=== PATIENT | male | born 1940 | race Caucasian/White ===

== ENCOUNTER → 2019-08-13 | Outpatient (CLI) | payer MEDICARE ==
[2019-08-13 15:32] LABS: BACTERIA,URINE NEGATIVE /HPF; BILIRUBIN,URINE NEGATIVE (NEGATIVE); CLARITY,URINE CLOUDY; COLOR,URINE YELLOW; GLUCOSE, URINE (UA) NEGATIVE (NEGATIVE); KETONES,URINE NEGATIVE (NEGATIVE); LEUKOCYTE ESTERASE ,URINE 3+ (NEGATIVE); NITRITE,URINE NEGATIVE (NEGATIVE); PROTEIN,URINE 1+ (NEGATIVE); RBC,URINE RARE /HPF; WBC,URINE TNTC /HPF
== END ==
LOC: LAB FS 14:47
PROVIDERS: ATTEND Family Medicine
DX: R10.9 Unspecified abdominal pain (principal)
CPT/HCPCS: 81000; 87077; 87088

== ENCOUNTER 2020-08-05 13:45 | Emergency (ER) | payer MEDICARE ==
[~2020-08-05] VITALS: Ht 187 cm; Wt 82.2 kg
--- NOTE | 2020-08-05 14:25 | ED General ---
General Chief Complaint: - Urinary Stated Complaint: CATHETER ISSUE Nursing Triage Note: Has been self catheterizing for 8 months due to urinary retention. Has seen urology at [facility] but was told they couldn't do anything until the coronavirus down. Has intermittent bleeding when he catheterizes himself. Cathed himself this morning and states it has not stopped bleeding. Nursing Sepsis Screen: No Definite Risk History of Present Illness Date Seen by Provider: Aug 05, 2020 Time Seen by Provider: 14:22 Initial Comments Patient presenting to the emergency department for evaluation of hematuria in the setting of self-catheterization for the past 8 months. Patient says that he follows with a urologist at [facility] but has not seen them in a long time. He says when he catheterizes his urine is clear but after he is done catheterizing he notices gross hematuria. He denies any pain fevers chills nausea vomiting or other systemic symptoms. He is in no obvious distress with normal vital signs. Of note he denies taking any blood thinners at all. Allergies and Home Medications Allergies Coded Allergies: No Known Drug Allergies (Unverified , 08/05/20) Patient Home Medication List Home Medication List Reviewed: Yes Review of Systems Review of Systems Constitutional: no symptoms reported EENTM: no symptoms reported Respiratory: no symptoms reported Cardiovascular: no symptoms reported Gastrointestinal: no symptoms reported Genitourinary: hematuria Musculoskeletal: no symptoms reported Psychiatric/Neurological: No Symptoms Reported All Other Systems Reviewed Negative Unless Noted: Yes Past Frwniys-Atzogs-Qfzslw Hx Patient Social History Alcohol Use: Denies Use Recreational Drug Use: No Smoking Status: Never a Smoker 2nd Hand Smoke Exposure: No Recent Foreign Travel: No Contact w/Someone Who Travel: No Recent Infectious Disease Expo: No Recent Hopitalizations: No Physical Abuse: No Sexual Abuse: No Mistreated: No Fear: No Seasonal Allergies Seasonal Allergies: No Past Medical History Surgeries: Yes Tonsillectomy Respiratory: No Cardiac: No Neurological: No Genitourinary: Yes Prostate Problems Gastrointestinal: No Musculoskeletal: No Endocrine: No HEENT: No Cancer: No Psychosocial: No Integumentary: No Blood Disorders: No Adverse Reaction/Blood Tranf: No Physical Exam Vital Signs Vital Signs - First Documented 08/05/20 13:53 Temp 36.0 Pulse 110 Resp 16 B/P (MAP) 171/91 (117) Pulse Ox 100 Capillary Refill : Less Than 3 Seconds Height, Weight, BMI Height: '" Weight: lbs. oz. kg; 23.00 BMI Method: General Appearance: No Apparent Distress, WD/WN HEENT: PERRL/EOMI Neck: Supple Respiratory: No Respiratory Distress Cardiovascular: Regular Rate, Rhythm Back: No CVA Tenderness Extremity: Normal Capillary Refill Neurologic/Psychiatric: Alert, Oriented x3 Skin: Warm/Dry Progress/Results/Core Measures Suspected Sepsis Recent Fever Within 48 Hours: No Infection Criteria Present: None New/Unexplained Altered Menta: No Sepsis Screen: No Definite Risk SIRS Temperature: Pulse: 110 Respiratory Rate: 16 Laboratory Tests 08/05/20 14:05: White Blood Count 15.1H Blood Pressure 171 /91 Mean: 117 Laboratory Tests 08/05/20 14:05: Creatinine 3.54H, INR Comment 1.0, Platelet Count 425H, Total Bilirubin 0.3 Results/Orders Lab Results Laboratory Tests Test 08/05/20 14:05 08/05/20 14:10 Range/Units White Blood Count 15.1 H 4.3-11.0 10^3/uL Red Blood Count 5.29 4.35-5.85 10^6/uL Hemoglobin 13.3 13.3-17.7 G/DL Hematocrit 44 40-54 % Mean Corpuscular Volume 82 80-99 FL Mean Corpuscular Hemoglobin 25 25-34 PG Mean Corpuscular Hemoglobin Concent 31 L 32-36 G/DL Red Cell Distribution Width 14.7 H 10.0-14.5 % Platelet Count 425 H 130-400 10^3/uL Mean Platelet Volume 9.1 7.4-10.4 FL Immature Granulocyte % (Auto) 2 % Neutrophils (%) (Auto) 75 42-75 % Lymphocytes (%) (Auto) 17 12-44 % Monocytes (%) (Auto) 5 0-12 % Eosinophils (%) (Auto) 1 0-10 % Basophils (%) (Auto) 0 0-10 % Neutrophils # (Auto) 11.3 H 1.8-7.8 X 10^3 Lymphocytes # (Auto) 2.5 1.0-4.0 X 10^3 Monocytes # (Auto) 0.8 0.0-1.0 X 10^3 Eosinophils # (Auto) 0.2 0.0-0.3 10^3/uL Basophils # (Auto) 0.1 0.0-0.1 10^3/uL Immature Granulocyte # (Auto) 0.3 H 0.0-0.1 10^3/uL Neutrophils % (Manual) 71 % Lymphocytes % (Manual) 17 % Monocytes % (Manual) 9 % Eosinophils % (Manual) 1 % Basophils % (Manual) 0 % Band Neutrophils 2 % Blood Morphology Comment NORMAL Prothrombin Time 13.2 12.2-14.7 SEC INR Comment 1.0 0.8-1.4 Activated Partial Thromboplast Time 29 24-35 SEC Sodium Level 138 135-145 MMOL/L Potassium Level 4.7 3.6-5.0 MMOL/L Chloride Level 106 98-107 MMOL/L Carbon Dioxide Level 16 L 21-32 MMOL/L Anion Gap 16 H 5-14 MMOL/L Blood Urea Nitrogen 57 H 7-18 MG/DL Creatinine 3.54 H 0.60-1.30 MG/DL Estimat Glomerular Filtration Rate 17 BUN/Creatinine Ratio 16 Glucose Level 198 H 70-105 MG/DL Calcium Level 9.3 8.5-10.1 MG/DL Corrected Calcium 9.3 8.5-10.1 MG/DL Total Bilirubin 0.3 0.1-1.0 MG/DL Aspartate Amino Transf (AST/SGOT) 10 5-34 U/L Alanine Aminotransferase (ALT/SGPT) 8 0-55 U/L Alkaline Phosphatase 124 40-136 U/L Total Protein 8.0 6.4-8.2 GM/DL Albumin 4.0 3.2-4.5 GM/DL Urine Color RED H Urine Clarity CLOUDY H Urine pH 6.0 5-9 Urine Specific [place] 1.015 L 1.016-1.022 Urine Protein 2+ H NEGATIVE Urine Glucose (UA) NEGATIVE NEGATIVE Urine Ketones NEGATIVE NEGATIVE Urine Nitrite NEGATIVE NEGATIVE Urine Bilirubin NEGATIVE NEGATIVE Urine Urobilinogen 0.2 < = 1.0 MG/DL Urine Leukocyte Esterase 3+ H NEGATIVE Urine RBC (Auto) 3+ H NEGATIVE Urine RBC TNTC H /HPF Urine WBC TNTC H /HPF Urine Squamous Epithelial Cells NONE /HPF Urine Crystals NONE /LPF Urine Bacteria MODERATE H /HPF Urine Casts NONE /LPF Urine Mucus NEGATIVE /LPF Urine Culture Indicated YES My Orders Orders - CORI BARCENAS DO Cbc With Automated Diff (08/05/20 14:00) Comprehensive Metabolic Panel (08/05/20 14:00) Partial Thromboplastin Time (08/05/20 14:00) Protime With Inr (08/05/20 14:00) Ua Culture If Indicated (08/05/20 14:00) Catheter(Urinary) Insert & Ass 03,15 (08/05/20 14:00) Urinary Catheter: Hand Irrigat (08/05/20 14:00) Urine Culture (08/05/20 14:10) Manual Differential (08/05/20 14:05) Ceftriaxone For Im Use (Rocephin For Im (08/06/20 09:00) Lidocaine 1% Inj 20 Ml (Xylocaine 1% Inj (08/05/20 15:30) Vital Signs/I&O 08/05/20 13:53 Temp 36.0 Pulse 110 Resp 16 B/P (MAP) 171/91 (117) Pulse Ox 100 Capillary Refill : Less Than 3 Seconds Blood Pressure Mean: 117 Progress Note : Progress Note Given he is having to catheterize more often if he says he feels the need to urinate more often and will go ahead and place and a Messer catheter and irrigate check his urine basic labs and reassess. Patient's workup is abnormal with signs of renal insufficiency that he believes is new in onset however I do not have any old labs to compare to and he also has a urinary tract infection with leukocytosis noted. Patient received a dose of Rocephin here while his chemistry was pending and after I told the results of told him he should get an IV and IV fluids but he did not want that at this time as he says he could go home and drink plenty of fluids. I told him that the results is moderately severe and that inpatient IV fluids antibiotics may be indicated and he refused stating that he has taken oral antibiotics in the past and improved and he said he would like to be treated as an outpatient. I advised against it and he understood the risks but said that he would follow with his primary care provider on Sunday for repeat laboratory check and I told him in the interim if he has any problems at all he would need to come back to emergency department immediately. Patient aware and agreeable with plan for discharge and verbalized understanding of the need for short-term follow-up and strict ED return precautions discussed worsening pain fevers vomiting or other general concerns. Of note patient has a Messer catheter present and it has been draining at least 500 cc of clear urine with no hematuria noted. Departure Impression Primary Impression: Urinary tract infection Qualified Codes: N39.0 - Urinary tract infection, site not specified; R31.9 - Hematuria, unspecified Additional Impressions: Renal insufficiency Leukocytosis Disposition: HOME, SELF-CARE Condition: Stable Departure-Patient Inst. Referrals: GLORY SEPULVEDA MD (PCP/Family) Primary Care Physician Patient Instructions: Urinary Tract Infection, Adult (DC) Scripts Cephalexin (Keflex) 500 Mg Capsule 500 MG PO TID for 7 Days, CAP Prov: CORI BARCENAS DO 08/05/20 CORI BARCENAS DO Aug 05, 2020 14:25
[2020-08-05 14:38] LABS: BASOPHILS % (AUTO) 0 % (0-10); EOSINOPHILS % (AUTO) 1 % (0-10); HEMATOCRIT 44 % (40-54); HEMOGLOBIN 13.3 G/DL (13.3-17.7); LYMPHOCYTES % (AUTO) 17 % (12-44); MEAN CORPUSCULAR HEMOGLOBIN 25 PG (25-34); MEAN CORPUSCULAR HGB CONC 31 G/DL (32-36); MEAN CORPUSCULAR VOLUME 82 FL (80-99); MEAN PLATELET VOLUME 9.1 FL (7.4-10.4); MONOCYTES % (AUTO) 5 % (0-12); NEUTROPHILS % (AUTO) 75 % (42-75); PLATELET COUNT 425 10^3/uL (130-400); WHITE BLOOD COUNT 15.1 10^3/uL (4.3-11.0)
[2020-08-05 14:39] LABS: BASOPHILS # (AUTO) 0.1 10^3/uL (0.0-0.1); EOSINOPHILS # (AUTO) 0.2 10^3/uL (0.0-0.3); LYMPHOCYTES # (AUTO) 2.5 X 10^3 (1.0-4.0); MONOCYTES # (AUTO) 0.8 X 10^3 (0.0-1.0); NEUTROPHILS # (AUTO) 11.3 X 10^3 (1.8-7.8)
[2020-08-05 14:54] LABS: PROTHROMBIN TIME PATIENT 13.2 SEC (12.2-14.7)
[2020-08-05 15:03] LABS: COLOR,URINE RED
[2020-08-05 15:04] LABS: BACTERIA,URINE MODERATE /HPF; BILIRUBIN,URINE NEGATIVE (NEGATIVE); CLARITY,URINE CLOUDY; GLUCOSE, URINE (UA) NEGATIVE (NEGATIVE); KETONES,URINE NEGATIVE (NEGATIVE); LEUKOCYTE ESTERASE ,URINE 3+ (NEGATIVE); NITRITE,URINE NEGATIVE (NEGATIVE); PROTEIN,URINE 2+ (NEGATIVE); RBC,URINE TNTC /HPF; WBC,URINE TNTC /HPF
[2020-08-05 15:13] LABS: BILIRUBIN,TOTAL 0.3 MG/DL (0.1-1.0); CALCIUM 9.3 MG/DL (8.5-10.1); CREATININE SERUM 3.54 MG/DL (0.60-1.30); POTASSIUM 4.7 MMOL/L (3.6-5.0)
[2020-08-05 15:20] LABS: BAND NEUTROPHILS 2 %; BASOPHILS % (MANUAL) 0 %; EOSINOPHILS % (MANUAL) 1 %; LYMPHOCYTES % (MANUAL) 17 %; MONOCYTES % (MANUAL) 9 %; NEUTROPHILS % (MANUAL) 71 %; RBC MORPH NORMAL
[2020-08-05] MEDS ORDERED: LIDOCAINE 1% INJ 20 ML 20 ML VIAL INJ ONE (15:30)
[2020-08-05] MEDS ORDERED: CEPH-507 PO (16:04)
[2020-08-05] MEDS ORDERED: cefTRIAXone 1,000 MG/2.86 ml vial (IM ONLY) ONE (16:09)
[2020-08-05 16:45] VITALS: BP 124/64
[2020-08-06] MEDS ORDERED: cefTRIAXone 1,000 MG/2.86 ml vial (IM ONLY) IM SCH (09:00)
== END 2020-08-05 16:42 | disposition home or self-care (01) ==
LOC: EDUNIT# 13:45 → ER FS 13:48
DX: N39.0 Urinary tract infection, site not specified (principal); N28.9 Disorder of kidney and ureter, unspecified; D72.829 Elevated white blood cell count, unspecified
CPT/HCPCS: 36415; 80053; 81000; 85007; 85027; 85610; 85730; 87077; 87088; 87186; 99284

== ENCOUNTER → 2020-08-13 | Outpatient (CLI) | payer MEDICARE ==
[~2020-08-13] MED LIST: CEPH-507 PO
[2020-08-13 14:23] LABS: CREATININE SERUM 2.6 MG/DL (0.60-1.30)
== END ==
LOC: LAB FS 13:40 → MERGE 13:40
PROVIDERS: ATTEND Family Medicine
DX: N18.9 Chronic kidney disease, unspecified (principal)
CPT/HCPCS: 36415; 80048

== ENCOUNTER → 2021-01-04 | Outpatient (CLI) | payer MEDICARE ==
[2021-01-04 15:56] LABS: BILIRUBIN,URINE NEGATIVE (NEGATIVE); CLARITY,URINE CLOUDY; COLOR,URINE YELLOW; GLUCOSE, URINE (UA) NEGATIVE (NEGATIVE); KETONES,URINE NEGATIVE (NEGATIVE); LEUKOCYTE ESTERASE ,URINE 3+ (NEGATIVE); NITRITE,URINE POSITIVE (NEGATIVE); PROTEIN,URINE 1+ (NEGATIVE)
[2021-01-04 15:57] LABS: BACTERIA,URINE FEW /HPF; SQUAMOUS EPITHELIAL CELL,UR RARE /HPF; WBC,URINE >100 /HPF
== END ==
LOC: LAB FS 15:19
PROVIDERS: ATTEND Family Medicine
DX: R30.9 Painful micturition, unspecified (principal)
CPT/HCPCS: 81000; 87088

== ENCOUNTER → 2021-01-05 | Outpatient (CLI) | payer MEDICARE ==
[2021-01-05 11:53] LABS: CALCIUM 8.9 MG/DL (8.5-10.1); CREATININE SERUM 2.81 MG/DL (0.60-1.30); POTASSIUM 4.8 MMOL/L (3.6-5.0)
== END ==
LOC: LAB FS 11:01
PROVIDERS: ATTEND Family Medicine
DX: N18.2 Chronic kidney disease, stage 2 (mild) (principal)
CPT/HCPCS: 36415; 80048

== ENCOUNTER → 2021-04-18 | Outpatient (CLI) | payer MEDICARE ==
[2021-04-18 11:25] LABS: BILIRUBIN,URINE NEGATIVE (NEGATIVE); CLARITY,URINE TURBID; COLOR,URINE YELLOW; GLUCOSE, URINE (UA) NEGATIVE (NEGATIVE); KETONES,URINE NEGATIVE (NEGATIVE); LEUKOCYTE ESTERASE ,URINE 3+ (NEGATIVE); NITRITE,URINE POSITIVE (NEGATIVE); PROTEIN,URINE 2+ (NEGATIVE)
[2021-04-18 11:26] LABS: BACTERIA,URINE MODERATE /HPF; WBC,URINE TNTC /HPF
== END ==
LOC: LAB FS 10:55
PROVIDERS: ATTEND Registered Nurse Emergency
DX: R30.9 Painful micturition, unspecified (principal)
CPT/HCPCS: 81000; 87077; 87088; 87186

== ENCOUNTER → 2021-05-06 | Outpatient (CLI) | payer MEDICARE | LOC: LAB FS 10:57 | PROVIDERS: ATTEND Urology | DX: Z01.812 Encounter for preprocedural laboratory examination (principal); Z20.822 Contact with and (suspected) exposure to COVID-19 | CPT/HCPCS: 87635 ==

== ENCOUNTER 2021-05-30 13:20 | Emergency (ER) | payer MEDICARE ==
[~2021-05-30] VITALS: Ht 185.5 cm; Wt 68.0 kg
--- OUTSIDE RECORDS SUMMARY | 2021-05-30 13:29 | XMS REPORT | Encounter Summary ---
Author Author [facility] Organization [facility] Address Unknown Phone Unavailable Care Team Providers Care Certified Juvenile Probation Officer Name Role Phone Rupal Alexander MD PCP Reason for Visit * Auth/Cert Referred By Contact Referred To Contact Status Reason Specialty Diagnoses / Procedures Diagnoses Urinary retention Urinary retention [R33.9] P rocedures MI LASER ENUCLEATION PROSTATE W/MORCELLATION LASER ENUCLEATION PROSTATE WITH MORCELLATION - COMPLETE Encounter Details Care Team Description Date Type Department Rustam Rangel DO [address] [place] [address] Richelle Ghosh SRNA 05/09/2021 Anesthesia Operating Room: [facility] [address] [facility] [address] [place] [address] Anesthesia Record Responsible Anesthesiologist Anesthesia Start Time Anesthesi a Stop Time Procedure Name Rustam Rangel DO 05/09/21 1237 05/09/21 1645 LASER ENUCLEATION PROSTATE WITH MORCELLATION - COMPLETE (N/A Penis) Date Time Event Comment 1207 AN Equip Check 2020 1214 1237 Anes Start 1238 Out of Pre Procedure 1238 In Room 1239 An Start Data 1244 An Induction The patient was ree valuated immediately before moderate or deep sedation use and before anesthesia induction. 1246 An Intubation 1248 Anesthesia Ready 1302 Proc Start 1400 Quick Note Warm blankets appli ed around patient's head/shoulders. 1437 Quick Note Surgeon notified of patient's decreasing temperature. Room temperature increased at this time. 1525 Quick Note Surgeon notified of pt's hypothermia despite warming efforts. 1616 Quick Note Room temperature in creased again at this time. Warm blankets replaced around head/shoulders. Surgeon notified . 1627 Antibiotic Redose Ancef 2 g Given 1639 An Extubation 1640 an stop data 1644 Handoff to RN I completed my SBAR handoff to the receiving nurse. 1645 An Stop Meds Name Total fentaNYL PF (SUBLIMAZE) injection 200 mcg lidocaine (2%) 200 mg/10mL Injection 60 mg syringe propofol (DIPRIVAN) 200 mg/ 20 mL 140 mg injection (VIAL) rocuronium (ZEMURON) injection 80 mg ondansetron (ZOFRAN) injection 4 mg dexamethasone (DECADRON) 4 mg/mL 4 mg injection phenylephrine (PIPO-SYNEPHRINE) 0.1 mg/mL 500 mcg injection syr sugammadex (BRIDION) 100 mg/mL iv soln 150 mg artificial tears (dextran 2 drop 70/hypromellose) ophthalmic drops ceFAZolin (ANCEF) 2 g lactated ringers infusion 1,200 mL * Name O2 N2O Inspired N2O Sevoflurane Inspired Sevoflurane * No blood administrations on file. Removal Type Details Placement Indwelling 05/09/21; 1445; Unit (Comment) ([facility] OR 05/09/21 1445 by Milan, Urinary 1); Urology; 22 FR; 3-way (CONTINUOUS ANNE Zuniga Catheter BLADDER IRRIGATION) 05/10/21 1250 by Minnie Reyes RN Peripheral 05/09/21; RN; R; Wrist; 20 G; 1; Therap y 05/09/21 0000 by Te IV completed; 05/10/21; 1250 ANNE Hernandez 05/10/21 1250 by Minnie Reyes RN Peripheral 05/09/21; 1145; RN; R; Wrist; 20 G; 1; 05/09/21 1145 by Marislo IV Therapy completed; 05/10/21; 1250 Sandip panda RN 05/09/21 1639 by Richelle Ghosh SRNA ETT 05/09/21; 1246; Ventilated by mask (1); 05/09/21 1246 by Augie Direct laryngoscopy; Single-Lumen, COLLIN Peoples Cuffed; ETT Size: 7.5mm; Mac; Blade Size: 3; Cricoid Pressure: Yes; Oral; 1-Full view of the glottis; 1 insertion attempt; Auscultation, ETCO2 Detector; Vol of Air in Cuff: 10 mL; Taped at Gums: 23 centimeters; First DL with [place] 3 blade (grade 3 view). Second D L with MAC 3 blade (grade 1 view). Atraumatic, no change in oral mucosa.; 05/09/21; 1639 documented in this encounter Social History Date Tobacco Use Types Packs/Day Years Used Never Smoker Smokeless Tobacco: Never Used Comments Alcohol Use Standard Drinks/Week Never 0 (1 standard drink = 0.6 o z pure alcohol) Alcohol Habits Answer Date Recorded How often do you have a drink containing alcohol? Never 11/15/2020 How many drinks containing alcohol do you have on No t asked a typical day when you are drinking? How often do you have six or more drinks on one Not asked occasion? Comment: Not asked Sex Assigned at Date Recorded Male 04/14/2021 10:33 AM CDT Date Recorded COVID-19 Exposure Response 05/09/2021 11:30 AM CDT In the last month, have you been in contact with No / Unsure someone who was confirmed or suspected to have Coronavirus / COVID-19? documented as of this encounter Functional Status Date of Assessment Functional Status Response 11/15/2020 Does the patient have a hearing impairment: No 11/15/2020 Does the patient have a visual impairment: Yes 11/15/2020 Does the patient have impaired ambulation: No 11/15/2020 Does the patient have an activity of daily living No (ADL) impairment: 11/15/2020 Does the patient have an instrumental activity of No daily living (IADL) impairment: Date of Assessment Cognitive Status Response 11/15/2020 Does the patient have a cognitive impairment: No documented as of this encounter OR Notes * Anesthesia Postprocedure Evaluation - Radha Crocker, DO - 05/09/2021 5:42 PM CDT Post-Anesthesia Evaluation Name: Abdulaziz Vasquez : 1940 Age: 81 y.o. S ex: male Procedure Information Anesthesia Start Date/Time: 05/09/21 1237 Procedure: LASER ENUCLEATION PROSTATE WITH MORCELLATION - COMPLETE (N/A Penis) - 1.5 HRS, 120 W laser, morcellator [id number] MORCELLATION START: 1449 MORCELLATION STOP: Location: MAIN OR 01 / Main OR/Periop Surgeons: Sarkis Andrew MD Post-Anesthesia Vitals BP: 137/70 (05/09 1730) Temp: 36.4 C (97.6 F) (05/09 1730) Pulse: 62 (05/09 1730) Respirations: 12 PER MINUTE (05/09 1730) SpO2: 100 % (05/09 1730) SpO2 Pulse: 62 (05/09 1730) Vitals Value Taken Time BP 137/70 05/09/210 Temp 36.4 C (97.6 F) 05/09/211729 Pulse 62 05/09/211729 Respirations 12 PER MINUTE 05/09/211729 SpO2 100 % 05/09/211729 Post Anesthesia Evaluation Note Evaluation location: Pre/Post Patient participation: recovered; patient participated in evaluation Level of consciousness: alert Pain score: 0 Pain management: adequate Hydration: normovolemia Temperature: 36.0C - 38.4C Airway patency: adequate Perioperative Events Post-op nausea and vomiting: no PONV Postoperative Status Cardiovascular status: hemodynamically stable Respiratory status: spontaneous ventilation Follow-up needed: none Perioperative Events Perioperative Event: No Emergency Case Activation: No Associated attestation - Oral Church MD - 05/09/2021 6:28 PM CDT Post-Anesthesia Evaluation Attestation: I reviewed and agree the indicated post- anesthesia care was provided. I have reviewed ross portions of the indicated post anesthesia care. I have examined the patient's vitals, physical status, and com plications and agree with what is documented. Staff name: Oral Church MD Date: 05/09/2021 * Anesthesia Preprocedure Evaluation - Rustam Rangel DO - 05/08/2021 12:34 PM CDT Anesthesia Pre-Procedure Evaluation Name: Abdulaziz Vasquez : 1940 Age: 81 y.o. S ex: male Procedure Info: Procedure Information Date/Time: 05/09/21 1345 Procedure: LASER ENUCLEATION PROSTATE WITH MORCELLATION - COMPLETE (N/A ) - 1.5 HRS, 120 W laser, morcellator [id number] Location: MAIN OR OR/Periop Surgeons: Sarkis Andrew MD Physical Assessment Vital Signs (last filed in past 24 hours): BP: 139/84 (05/09 1121) Temp: 36.7 C (98.1 F) (05/09 1121) Pulse: 100 (05/09 1121) Respirations: 19 PER MINUTE (05/09 1121) SpO2: 100 % (05/09 1121) Height: 185.4 cm (73") (05/09 1121) Weight: 75.1 kg (165 lb 9.1 oz) (05/09 1121) Patient History Allergies Allergen Reactions Bees [Venom-Honey Bee] SYNCOPE Per PAC Phone Triage Note: PAC phone triage completed with patient for surgery on 05/09/[address] Andrew. Me dications, allergies and medical history reviewed and updated in chart. Has hist ory of HLD and BPH. Denies any known cardiac or pulmonary disease. No past anest hesia complications. He states that he can walk 3 or 4 blocks without CP/LUCIO. De nies URI symptoms at this time. Current Medications Medication Directions senna/docusate (SENOKOT-S) 8.6/50 mg tablet Take 1 tablet by mouth daily. Review of Systems/Medical History Patient summary reviewed Nursing notes reviewed PONV Screening: Non-smoker and Postoperative opioids Airway - negative Pulmonary no COPD No recent URI Not on home oxygen Cardiovascular Exercise tolerance: >4 METS Beta Kathryn therapy: No No past VT, No angina Hyperlipidemia GI/Hepatic/Renal GERD, well controlled No hx of liver disease No nausea No vomiting Neuro/Psych No hx TIA No CVA No chronic opioid use No chronic benzodiazepine use Musculoskeletal No fractures Physical Exam Airway Findings Mallampati: II TM distance: >3 FB Neck ROM: full Mouth opening: good Dental Findings: Upper dentures and lower dentures Cardiovascular Findings: Rhythm: regular Rate: normal Pulmonary Findings: Breath sounds clear to auscultation. No decreased breath sounds. Abdominal Findings: Not obese Neurological Findings: Alert and oriented x 3 Normal mental status Constitutional findings: No acute distress Diagnostic Tests Hematology: No results found for: HGB, HCT, PLTCT, WBC, NEUT, ANC, LYMPH, ALC, A BSLYMPHCT, JONATHAN, AMC, EOSA, ABC, BASOPHILS, MCV, MCH, MCHC, MPV, RDW General Chemistry: No results found for: NA, K, CL, CO2, GAP, BUN, CR, GLU, CA, KETONES, ALBUMIN, LACTIC, OBSCA, MG, TOTBILI, TOTBILCB, PO4 Coagulation: No results found for: PT, PTT, INR Anesthesia Plan ASA score: 2 Plan: general Induction method: intravenous NPO status: acceptable Informed Consent Anesthetic plan and risks discussed with patient. Use of blood products discussed with patient Blood Consent: consented Plan discussed with: anesthesiologist, surgeon/proceduralist and WET PROCESS TECHNICIAN. documented in this encounter Plan of Treatment Not on filedocumented as of this encounter Goals Goal Patient Associated Recent Progress Patient-Stat Aut hor Goal Type Problems ed? Recover from illness Hospital On track (05/10/2021 Yes Eli, 9:35 AM CDT) ANNE Hamm documented as of this encounter Visit Diagnoses Not on filedocumented in this encounter Administered Medications Action Date Dose Rate Site Medication Order MAR Action 05/09/2021 12:46 PM CDT 2 drops artificial tears single dose ophthalmic Given solution Both Eyes, INTRA-PROCEDURE MED, Startin g on Sun05/09/21 at 1246, Until Sun05/09/21 at 1646, Anesthesia Intra-op 05/09/2021 4:27 PM CDT 2 g ceFAZolin (ANCEF) injection Given Intravenous, INTRA-PROCEDURE MED, Starting on Sun05/09/21 at 1627, Until Sun05/09/21 at 1646, Anesthesia Intra-o p 05/09/2021 12:51 PM CDT 4 mg dexamethasone (DECADRON) injection Given Intravenous, INTRA-PROCEDURE MED, Starting on Sun05/09/21 at 1251, Until Sun05/09/21 at 1646, Anesthesia Intra-o p 05/09/2021 3:06 PM CDT 25 mcg fentaNYL citrate PF (SUBLIMAZE) Given injection Intravenous, INTRA-PROCEDURE MED, Starting on Sun05/09/21 at 1244, Until Sun05/09/21 at 1646, Anesthesia Intra-o p 25 mcg Given 05/09/2021 1:49 PM CDT 50 mcg Given 05/09/2021 1:19 PM CDT 50 mcg Given 05/09/2021 12:44 PM CDT 50 mcg Given 05/09/2021 12:42 PM CDT 05/09/2021 4:02 PM CDT lactated ringers infusion Given - New 1,000 mL, 1,000 mL, Intravenous, at 20 Bag mL/hr, CONTINUOUS, Starting on Sun05/09/21 at 1130, Until Sun05/10/21 at 1555, Pre-Op Infusion Restarted 05/09/2021 12:40 PM CDT 1,000 mL 20 mL/hr Given - New Bag 05/09/2021 11:45 AM CDT 05/09/2021 12:44 PM CDT 60 mg lidocaine (PF) injection Given Intravenous, INTRA-PROCEDURE MED, Starting on Sun05/09/21 at 1244, Until Sun05/09/21 at 1646, Anesthesia Intra-o p 05/09/2021 4:20 PM CDT 4 mg ondansetron (ZOFRAN) injection Given Intravenous, INTRA-PROCEDURE MED, Starting on Sun05/09/21 at 1620, Until Sun05/09/21 at 1646, Anesthesia Intra-o p 05/09/2021 4:19 PM CDT 100 mcg phenylephrine (PIPO-SYNEPHRINE) injection Given syringe Intravenous, INTRA-PROCEDURE MED, Starting on Sun05/09/21 at 1246, Until Sun05/09/21 at 1646, Anesthesia Intra-o p 100 mcg Given 05/09/2021 4:03 PM CDT 100 mcg Given 05/09/2021 3:46 PM CDT 100 mcg Given 05/09/2021 1:02 PM CDT 100 mcg Given 05/09/2021 12:46 PM CDT 05/09/2021 1:16 PM CDT 20 mg propofol (DIPRIVAN) injection Given Intravenous, INTRA-PROCEDURE MED, Starting on Sun05/09/21 at 1244, Until Sun05/09/21 at 1646, Anesthesia Intra-o p 120 mg Given 05/09/2021 12:44 PM CDT 05/09/2021 3:56 PM CDT 10 mg rocuronium injection Given Intravenous, INTRA-PROCEDURE MED, Starting on Sun05/09/21 at 1244, Until Sun05/09/21 at 1646, Anesthesia Intra-o p 10 mg Given 05/09/2021 2:38 PM CDT 10 mg Given 05/09/2021 1:23 PM CDT 50 mg Given 05/09/2021 12:44 PM CDT 05/09/2021 4:30 PM CDT 150 mg sugammadex (BRIDION) injection Given Intravenous, INTRA-PROCEDURE MED, Starting on Sun05/09/21 at 1630, Until Sun05/09/21 at 1646, Anesthesia Intra-o p documented in this encounter Additional Health Concerns Assessment Noted Time A fall risk assessment has been completed for the pat ient 05/09/2021 9:42 PM CDT documented as of this encounter
--- OUTSIDE RECORDS SUMMARY | 2021-05-30 13:29 | XMS REPORT | Encounter Summary ---
Author Author [facility] Organization [facility] Address Unknown Phone Unavailable Care Team Providers Care Chair Finisher Name Role Phone Rupal Alexander MD PCP Reason for Visit * Auth/Cert Referred By Contact Referred To Contact Status Reason Specialty Diagnoses / Procedures Diagnoses Urinary retention Urinary retention [R33.9] P rocedures MI LASER ENUCLEATION PROSTATE W/MORCELLATION LASER ENUCLEATION PROSTATE WITH MORCELLATION - COMPLETE Encounter Details Care Team Description Date Type Department Reece Crews MD [address] [facility] [address] [place] [address] LASER ENUCLEATION PROSTATE WITH MORCELLA TION - COMPLETE 05/09/2021 Surgery Operating Room: [address] [place] [address] Surgery Details Trauma Case? Date/Time Status Location OR Service Patient Class Case Class Case Type 05/09/21 Posted 2 OR OR Urology Planned Elective - 1:45 PM Extended Treating Recovery conditions that are not life or limb threatenin g Panel 1 Procedure LRB Anes Op Region Wound Class Com ments LASER ENUCLEATION N/A Defer to Penis Clean 1.5 H RS, 120 W laser, PROSTATE WITH Anesthesia Contaminated morcellator [id number] MORCELLATION - COMPLETE M ORCELLATION START: 1450 MORCELLATION STOP: Panel Surgeon Surgeon Role Service 1 Reece Crews MD Primary Urology 1 Aki Astorga MD Resident - Assisting Urology Special Needs 04/28 PER IM FROM [facility]ESSIE PT CLASS CHANGED TO PLANNED EXTENDED RECOVERY - CC 1119 Social History Date Tobacco Use Types Packs/Day [...] / COVID-19? documented as of this encounter Last Filed Vital Signs Reading Time Taken Comments Vital Sign 139/84 05/09/2021 11:21 AM CDT Blood Pressure 100 05/09/2021 11:21 AM CDT Pulse 36.7 C (98.1 F) 05/09/2021 11:21 AM CDT Temperature - - Respiratory Rate 100% 05/09/2021 11:21 AM CDT Oxygen Saturation - - Inhaled Oxygen Concentration 75.1 kg (165 lb 9.1 oz) 05/09/2021 11:21 AM CDT Weight 185.4 cm (6' 1") 05/09/2021 11:21 AM CDT Height 21.84 05/09/2021 11:21 AM CDT Body Mass Index documented in this encounter Functional Status Date of Assessment Functional Status Response 05/10/2021 Does the patient have a hearing impairment: No 05/10/2021 Does the patient have a visual impairment: No 05/10/2021 Does the patient have impaired ambulation: No 05/10/2021 Does the patient have an activity of daily living No (ADL) impairment: 05/10/2021 Does the patient have an instrumental activity of No daily living (IADL) impairment: Date of Assessment Cognitive Status Response 05/10/2021 Does the patient have a cognitive impairment: No documented as of this encounter Medications at Time of Discharge Start Date End Date Medication Sig Dispensed Refills 05/10/2021 acetaminophen (TYLENOL) Take two 0 325 mg tablet tablets by mouth every 6 hours as needed. 05/10/2021 bacitracin 500 unit/g Apply 0 topical ointment topically to affected area as Needed (Catheter irritation/vincent brication). 05/10/2021 senna/docusate Take one 90 tablet 0 (SENOKOT-S) 8.6/50 mg tablet by tablet mouth daily. documented as of this encounter Ordered Prescriptions Start Date End Date Prescription Sig Dispensed Refills 05/10/2021 senna/docusate Take one 90 tablet 0 (SENOKOT-S) 8.6/50 mg tablet by tablet mouth daily. 05/10/2021 bacitracin 500 unit/g Apply 0 topical ointment topically to affected area as Needed (Catheter irritation/vincent brication). 05/10/2021 acetaminophen (TYLENOL) Take two 0 325 mg tablet tablets by mouth every 6 hours as needed. 05/10/2021 05/10/2021 cephalexin (KEFLEX) 500 Take one 10 capsule 0 mg capsule capsule by mouth every 12 hours for 5 days. documented in this encounter Discharge Disposition Code Departure Means Destination Disposition Wheelchair Home or Self Care documented in this encounter Progress Notes * Hansel Benitez RN - 05/10/2021 9:39 AM CDT Patient alert and oriented x4. Patient ID band verified with patient. Profile u pdated, care plan/education reviewed, and call light within reach. * Audi De León MD - 05/10/2021 5:49 AM CDT Urology Progress Note 05/10/2021 Assessment/Plan: Raimundo Ayala is a 81 y.o. Male with BPH with LUTS found to have a 133g prostat e and UDS consistent with DO and obstruction s/p HoLEP LOS: 0 days Will discuss plan with staff surgeon - Dr. Crews - PO pain control - DIET/FEN: Regular diet. SLIVF - GI: Bowel regimen, no straining. Zofran prn for nausea. - : CBI >History of CKD. Cr 6.03 in 07/2018 - Heme/ID: Afebrile. Bactrim x3 days - DVT: SCD's - Encourage OOB/Ambulation in hallways. Dispo: Discharge planning 05/10. 3 week follow up with [facility], 3 month foll ow up with Dr. Crews. Will discharge with catheter Audi De León MD Please page Urology on-call with questions. SUBJECTIVE: No acute events overnight. Pain is well controlled on the current regimen. Dominik ating diet without nausea or emesis. Patient has ambulated. OBJECTIVE: Vital Signs: Most Recent Vital Signs: Past 24 Ho urs BP: 108/46 (05/10 324) Temp: 36.7 C (98.1 F) (05/10 324) Pulse: 72 (05/10 324) Respirations: 16 PER MINUTE (05/10 324) SpO2: 98 % (05/10 324) Height: 185.4 cm (73") (05/09 1121) Weight: 75.1 kg (165 lb 9.1 oz) (05/09 1121) BP: (106-159)/(45-84) Temp: [35.9 C (96.7 F)-37 C (98.6 F)] Pulse: [62-100] Respirations: [10 PER MINUTE-20 PER MINUTE] SpO2: [97 %-100 %] General: Alert & oriented; no acute distress Pulm: Non-labored on room air CV: Regular rate Abd: Soft, appropriately tender, non-distended; no rebound or guarding Extremities: No edema; SCD's in place. : CBI slow drip, Messer catheter in place draining light pink colored urine. Date 05/09/21700 - 05/10/2169905/10/21700 - 05/11/21 07 Shift [id number] 8357-9177 24 Hour Total 8109-4074 3037-5732 24 Hour Total INTAKE I.V.(mL/kg/hr) 1200(1.3) 1200 Other 600 600 Shift Total(mL/kg) 1800(24) 1800(24) OUTPUT Urine(mL/kg/hr) 100(0.1) 6200 6300 Urine 0 0 Urine Output (ml) (Indwelling Urinary Catheter 05/09/21 1445 22 FR) 100 6200 6 300 Other 705 705 Estimated Blood Loss 5 5 Irrigant/Flush Out (ml) (Indwelling Urinary Catheter 05/09/21 1445 22 FR) 700 700 Shift Total(mL/kg) 805(10.7) 6200(82.6) 7005(93.3) NET 990 -6477 -7429 Weight (kg) 75.1 75.1 75.1 75.1 75.1 75.1 Labs: Hematology Chemistry Recent Labs 05/10/21 0326 WBC 14.5* HGB 8.5* PLTCT 315 Recent Labs 05/10/21 0326 NA 140 K 5.4* CL 115* CO2 14* BUN 42* CR 2.69* GFR 23* GLU 108* CA 7.7* ACTIVE PROBLEMS: Principal Problem: BPH with obstruction/lower urinary tract symptoms Active Problems: Stage 4 chronic kidney disease (HCC) * Dickson Chris RT - 05/09/2021 9:05 PM CDT RT Adult Assessment Note NAME:Raimundo Ayala :1940 AGE: 81 y.o. ADMISSION DATE: 05/09/2021 DAYS ADMITTED: LOS: 0 days RT Treatment Plan: Protocol Plan: Procedures Oxygen/Humidity: O2 to keep SpO2 > 95%, if less than 24 hours post op, then keep SpO2 greater than 92% SpO2: BID & PRN Additional Comments: Impressions of the patient: Pt resting in bed on RA, NAD at this time. Son at be dside. Intervention(s)/outcome(s): RT Eval Patient education that was completed: None Recommendations to the care team: See RT Treatment Plan Vital Signs: Pulse: 68 RR: 18 PER MINUTE SpO2: 100 % O2 Device: Standby Liter Flow: O2%: Breath Sounds: Clear (Implies normal) Respiratory Effort: Non-Labored * Ramila Matute RN - 04/18/2021 3:08 PM CDT PAC phone triage completed with patient for surgery on 05/09/[address] Crews. Me dications, allergies and medical history reviewed and updated in chart. Has hist ory of HLD and BPH. Denies any known cardiac or pulmonary disease. No past anest hesia complications. He states that he can walk 3 or 4 blocks without CP/LUCIO. De nies URI symptoms at this time. No PAC visit indicated. Preop and medication instructions reviewed with patient. No vitamins or suppleme nts for 14 days and no NSAIDS for 7 days before surgery. Visitor policy reviewed . Takes no daily medications. NPO after 11 pm the night before surgery but ok to drink water until 2 hours before arrival at hospital. Patient verbalized unders tanding and declined copy of instructions documented in this encounter H&P Notes * Aki Astorga MD - 05/09/2021 12:10 PM CDT Urology History and Physical Examination 05/09/2021 Patient: Raimundo Ayala Admission Date: (Not on file), LOS: 0 days Admission Diagnosis: Urinary retention [R33.9] ASSESSMENT: 81 y.o. male with history of BPH with LUTS found to have a 133g pros bledsoe and UDS consistent with DO and obstruction who presents for HoLEP. PLAN: - To OR for HoLEP - Risk and benefits of operative procedure were again discussed with the patient in detail, as in clinic; all questions were answered. Informed consent was obta ined and placed in the chart - Antibiotic ppx: ancef Surgical planning directed by Dr. Lorrie Astorga MD Urology Resident Pager: [phone] __ HPI: Raimundo Ayala is a 81 y.o. male with a history of BPH and LUTS found to carl[place] ve a 133g prostate gland and UDS consistent with obstruction with detrusor overa ctivity who presents for HoLEP. The patient denies any recent significant changes to his health since last seen. Patient denies any history of trouble with anesthesia, bleeding problems, and c onfirms they have been NPO since midnight. Patient also specifically denies curr ent fevers, chills, chest pain, SOB, nausea, vomiting, diarrhea, signs and sympt oms of UTI. Current anticoagulation: none I reviewed the procedural plan, risks and benefits and confirmed his informed co nsent document and discussion. Medical History: Diagnosis Date Dyslipidemia Enlarged prostate Urinary tract infection Surgical History: Procedure Laterality Date HX TONSILLECTOMY No family history on file. Reviewed; non-contributory Social History Socioeconomic History Marital status: Spouse name: Not on file Number of children: Not on file Years of education: Not on file Highest education level: Not on file Occupational History Not on file Tobacco Use Smoking status: Never Smoker Smokeless tobacco: Never Used Substance and Sexual Activity Alcohol use: Never Drug use: Never Sexual activity: Not Currently Other Topics Concern Not on file Social History Narrative Not on file Social Determinants of Health Financial Resource Strain: Difficulty of Paying Living Expenses: Food Insecurity: Worried About Running Out of Food in the Last Year: Ran Out of Food in the Last Year: Transportation Needs: Lack of Transportation (Medical): Lack of Transportation (Non-Medical): Physical Activity: Days of Exercise per Week: Minutes of Exercise per Session: Stress: Feeling of Stress : Social Connections: Frequency of Communication with Friends and Family: Frequency of Social Gatherings with Friends and Family: Attends Faith Services: Active Member of Clubs or Organizations: Attends Club or Organization Meetings: Marital Status: Intimate Partner Violence: Fear of Current or Ex-Partner: Emotionally Abused: Physically Abused: Sexually Abused: Immunizations (includes history and patient reported): There is no immunization history on file for this patient. Allergies: Bees [venom-honey bee] Medications: Medications Prior to Admission Medication Sig senna/docusate (SENOKOT-S) 8.6/50 mg tablet Take 1 tablet by mouth daily. Review of Systems: A 14 point review of systems was negative except for as noted in HPI Vitals: Vital Signs: Last Filed In 24 Hours Vital Signs: 24 Hour Range Intake/Output: No intake or output data in the 24 hours ending 05/09/21551 Physical Exam: Constitutional: No acute distress. HEENT: Normocephalic and atraumatic. Cardiovascular: Normal rate Pulmonary/Chest: Effort normal. No respiratory distress. Symmetric chest rise. Abdominal: Soft. No distension or tenderness. Psychiatric: Judgment and thought content normal. Neurologic: No obvious neurologic deficits. Musculoskeletal: No deformities. Lab/Radiology/Other Diagnostic Tests: No results for input(s): HGB, HCT, WBC, PLTCT, NA, K, CL, CO2, BUN, CR, GLU, CA, MG, PO4, ALBUMIN, TOTPROT, TOTBILI, AST, ALT, ALKPHOS, ABIODUN, LIPASE, PREALB, INR, PT, PTT in the last 72 hours. No orders to display documented in this encounter Miscellaneous Notes * Care Plan - Minnie Reyes RN - 05/10/2021 12:49 PM CDT Problem: Infection, Risk of, Urinary Catheter-Associated Urinary Tract Infection Goal: Absence of urinary catheter-associated infection Outcome: Goal Achieved Problem: Discharge Planning Goal: Knowledge regarding plan of care Outcome: Goal Achieved * Case Mgmt DC Plan - Sonia Barnett RN - 05/10/2021 9:56 AM CDT Case Management Progress Note NAME:Raimundo Ayala :1939 AGE: 81 y.o. ADMISSION DATE: 05/09/2021 DAYS ADMITTED: LOS: 0 days Todays Date: 05/10/2021 Plan Discharge to home today with no services Interventions Support Info or Referral Discharge Planning RNCM reviewed EMR Participated in Urology team huddle No discharge/CM needs identified during huddle Medication Needs Financial Legal Other Disposition Expected Discharge Date 05/10/2021 2:00 PM Transportation Next Level of Care (Acute Psych discharges only) Discharge Disposition Selected Continued Care - Admitted Since 05/09/2021 No services have been selected for the patient. Sonia Barnett RNCM Integrated Nurse Heavy Equipment Rental Manager [employer] *[phone] * Operative Report (Direct Entry) - Reece Crews MD - 05/09/2021 1:02 PM CDT OPERATIVE REPORT Name: Raimundo Ayala is a 81 y.o. male : 1940 0[birth year] DATE OF OPERATION: 05/09/2021 Surgeon(s) and Role: * Reece Crews MD - Primary * Aki Astorga MD - Resident - Assisting Preoperative Diagnosis: Urinary retention [R33.9] Post-op Diagnosis * Urinary retention [R33.9] OPERATIVE PROCEDURE: 1. Urethral dilation. 2. Thulium Super Pulsed laser enucleation of the prostate. 3. Morcellation of prostate adenoma, Lumenis Versacut Morcellator ANESTHESIA: General DRAINS: 1. 22 Salvadorean 3-way catheter with 60cc in balloon IRRIGATION BAGS USED: 26 LASER TIME: 44 minutes 21 minutes hemostasis time LASER SETTING AND TOTAL ENERGY: 550 micron fiber set at 2 J, 50 Hz = 100. 1 J, 30 Hz hemostatic settings. Total Energy: 126.1 kJ MORECELLATOR TIME: 96 minutes INDICATIONS FOR OPERATIVE PROCEDURE: A 81-year-old male with BPH with bothersom e lower urinary tract symptoms with a 133g prostate refractory to medical manage ment who presents today for Soltive laser enucleation of the prostate. DESCRIPTION AND FINDINGS OF OPERATIVE PROCEDURE: After informed consent was obt ained, the patient was taken to the operating theater and placed supine on the o perating table. General anesthesia was induced. He was repositioned to the charito julita lithotomy position and prepped and draped in a standard sterile fashion. Pr eoperative antibiotics were given. Bilateral SCDs were in place and functioning. A multidisciplinary time-out was taken identifying the patient and procedure. Next, a 26-Salvadorean continuous flow resectoscope with a visual obturator was advan sabrina through the urethra and into the bladder. There were no bladder masses, tumo rs, lesions, or stones. Bilateral ureteral orifices were in orthotopic location and clear of prostate laser resection field. There was bilateral lateral lobe hy pertrophy of the prostate. Additionally, median lobe hypertrophy without a signi ficant intravesical portion seen. The visual obturator was removed and replaced with a laser bridge, and a 550 micron laser fiber was placed. At the prostate apex proximal to the urinary sphincter and lateral to the verumo ntanum at the prostate apex, a posterior-lateral apical mucosal releasing incisi on was made down to capsule. Paty blunt dissection was used to establish the anatomic plane bilaterally to the verumontanum. The mucosa was then incised in t he midline marrying our bilateral posterior-lateral apical dissection. The apica l release incision was then carried superiorly bilaterally and anteriorly in the midline again marrying our incisions for a circumferential apical release. Urin solange sphincter was inspected and noted to be intact and uninvolved. Next laser incision was carried around posteriorly proximal to the verumontanum first, and then carried circumferentially towards the bladder neck. Next the an terior prostate plane was developed and extended around the lateral prostate lob es until the bladder was entered anteriorly at the bladder neck followed by late rally. Finally the remaining posterior adenoma attachments were released and the entire prostate adenoma was released en bloc into the bladder. The inner sheath of the resectoscope was removed and replaced with a long nephro scope. Using the Lumenis Versacut morcellator, prostate adenoma was morcellated . There were four prostatic nodules that were unable to be morcellated and were removed via basket. All tissues was sent to Pathology. No bladder injury was albert tained during morcellation. The morcellator was removed. Use of the Lumenis Versacut significantly increased morcellation time. A 22-Salvadorean, 3-way catheter was advanced into the bladder with return of rodriguez urine. 60 mL of sterile water was used to fill the balloon. Continuous bladder irrigation was initiated. The patient tolerated the procedure well. There were no immediate complications. He was taken to the PACU in stable condition on continuous bladder irrigation. Dr. Crews was present and scrubbed for all ross aspects of the procedure. ESTIMATED BLOOD LOSS: Minimal COMPLICATIONS: 1. Surgical suite experienced a loss of power during hemostasis laser time SPECIMENS REMOVED: ID Type Source Tests Collected by Time Destination 1 : PROSTATE CHIPS FOR ROUTINE Tissue Prostate SURGICAL PATHOLOGY Reece Crews MD 05/09/2021 1323 Disposition: PACU - stable IMMEDIATE POST-OPERATIVE PLAN: - Admit overnight on continuous bladder irrigation - Trial of void on post-operative day 1. Patient performed straight catheterizat ion pre-operatively and may not pass TOV Aki Astorga MD documented in this encounter Plan of Treatment Order Schedule Name Type Priority Associated Diag noses Ordered: 05/10/2021 AMB REFERRAL TO [facility] Outpatient Routine Urinary retention FLOOR REHAB Referral Stage 4 chronic kid morena disease (HCC) BPH with obstruction/lower urinary tract symptoms documented as of this encounter Goals Goal Patient Associated Recent Progress Patient-Stat Aut hor Goal Type Problems ed? Recover from illness Hospital On track (05/10/2021 Yes Eli, 9:35 AM CDT) ANNE Hamm documented as of this encounter Procedures Comments Procedure Name Priority Date/Time Associated Diag nosis BASIC METABOLIC PANEL Routine 05/10/2021 10:05 AM CDT HC CBC W/ AUTOMATED DIFF Routine 05/10/2021 3:26 AM CDT HC BASIC METABOLIC PANEL Routine 05/10/2021 3:26 AM CDT HC LVL IV SRG PTH, GROSS Routine 05/09/2021 Urina ry retention & MICRO 1:23 PM CDT LASER ENUCLEATION 05/09/2021 Urinary retention PROSTATE WITH 12:38 PM CDT MORCELLATION - COMPLETE Special Needs 04/28 PER IM FROM [facility]ESSIE PT CLASS CHANGED TO PLANNED EXTENDED RECOVERY - CC 1119 HC HEMOGLOBIN STAT 05/09/2021 11:44 AM CDT HC HEMATOCRIT STAT 05/09/2021 11:44 AM CDT HC PROSTATIC SPECIF STAT 05/09/2021 AG(PSA);TOT 11:44 AM CDT TELEMETRY STRIPS-SCAN 05/09/2021 12:00 AM CDT documented in this encounter Results * BASIC METABOLIC PANEL (05/10/2021 10:05 AM CDT) Sodium 139 137 - 147 MMOL/L [facility] Potassium 4.8 3.5 - 5.1 MMOL/L [facility] Chloride 113 (H) 98 - 110 MMOL/L [facility] CO2 16 (L) 21 - 30 MMOL/L [facility] Anion Gap 10 3 - 12 [facility] Glucose 161 (H) 70 - 100 MG/DL [facility] Blood Urea 39 (H) 7 - 25 MG/DL [facility] Nitrogen Creatinine 2.53 (H) 0.4 - 1.24 MG/DL [facility] Calcium 7.6 (L) 8.5 - 10.6 MG/DL [facility] eGFR Non 25 (L) >60 mL/min [facility] Comment: [place] The eGFR is not validated f or use in drug dosing adjustments. Continue to use estimated creatinine clearance per dosing reference text. Please contact the Clinical Pharmacist for questions. eGFR 30 (L) >60 mL/min [facility] [place] Comment: The eGFR is not validated for use in drug dosing adjustments. Continue to use estimated creatinine clearance per dosing reference text. Please contact the Clinical Pharmacist for questions. Specimen Blood Performing Organization Address City/State/ZIP Code P faiza Number [facility] [address] [place] [address] * BASIC METABOLIC PANEL (05/10/2021 3:26 AM CDT) Sodium 140 137 - 147 MMOL/L [facility] Potassium 5.4 (H) 3.5 - 5.1 MMOL/L [facility] Chloride 115 (H) 98 - 110 MMOL/L [facility] CO2 14 (L) 21 - 30 MMOL/L [facility] Anion Gap 11 3 - 12 [facility] Glucose 108 (H) 70 - 100 MG/DL [facility] Blood Urea 42 (H) 7 - 25 MG/DL [facility] Nitrogen Creatinine 2.69 (H) 0.4 - 1.24 MG/DL [facility] Calcium 7.7 (L) 8.5 - 10.6 MG/DL [facility] eGFR Non 23 (L) >60 mL/min [facility] Comment: [place] The eGFR is not validated f or use in drug dosing adjustments. Continue to use estimated creatinine clearance per dosing reference text. Please contact the Clinical Pharmacist for questions. eGFR 28 (L) >60 mL/min [facility] [place] Comment: The eGFR is not validated for use in drug dosing adjustments. Continue to use estimated creatinine clearance per dosing reference text. Please contact the Clinical Pharmacist for questions. Specimen Performing Organization Address City/[facility]/ZIP Code P faiza Number [facility] [address] [place] [address] * CBC AND DIFF (05/10/2021 3:26 AM CDT) White Blood 14.5 (H) 4.5 - 11.0 K/UL [facility] Cells RBC 3.85 (L) 4.4 - 5.5 M/UL [facility] Hemoglobin 8.5 (L) 13.5 - 16.5 GM/DL [facility] Hematocrit 28.2 (L) 40 - 50 % [facility] MCV 73.3 (L) 80 - 100 FL [facility] MCH 22.0 (L) 26 - 34 PG [facility] MCHC 30.0 (L) 32.0 - 36.0 G/DL [facility] RDW 16.2 (H) 11 - 15 % [facility] Platelet Count 315 150 - 400 K/UL [facility] MPV 7.4 7 - 11 FL [facility] Neutrophils 86 (H) 41 - 77 % [facility] Lymphocytes 8 (L) 24 - 44 % [facility] Monocytes 6 4 - 12 % [facility] Eosinophils 0 0 - 5 % [facility] Basophils 0 0 - 2 % [facility] Absolute 12.30 (H) 1.8 - 7.0 K/UL [facility] Neutrophil Count Absolute Lymph 1.20 1.0 - 4.8 K/UL [facility] Count Absolute 0.90 (H) 0 - 0.80 K/UL [facility] Monocyte Count Absolute 0.00 0 - 0.45 K/UL [facility] Eosinophil Count Absolute 0.00 0 - 0.20 K/UL [facility] Basophil Count Specimen Performing Organization Address City/[facility]/ZIP Code P faiza Number [facility] [address] [place] [address] * SURGICAL PATHOLOGY (05/09/2021 1:23 PM CDT) PATHOLOGY [email or web address] Department of Pathology and Laboratory Medicine [address] [place] [address] Surgical Pathology Office: [phone] SURGICAL PATHOLOGY REPORT NAME: RAIMUNDO AYALA SURG PATH #: [id number] MR #: [id number] SPECIMEN CLASS: SR BILLING #: [id number] ALT ID #: LOCATION: 8 DATE OF PROCEDURE: 05/09/2021 AGE: 81 SEX: M DATE RECEIVED: 05/09/2021 : 1940 TIME RECEIVED: 17:04 PHYSICIAN: REECE CREWS MD DATE OF REPORT: 05/11/2021 COPY TO: DATE OF PRINTIN05/11/2021 ############################## ############################## ############ Final Diagnosis: A. Prostate chips, TURP: Prostatic adenocarcinoma, Iqra score 7 (3+4), grade group 2, involving less than 5% of submitted tissue. Background prostatic tissue with glandular and stromal hyperplasia. Comment: Immunohistochemical stains for basal cell markers and P504s (PIN-4) performed on block A2 support the above diagnosis. Pursuant to the Hospital Wellness Coordinator Program at the [facility] Pathology Department, selected slides from this case have been concurrently reviewed by Dr. Love iSlva who agrees with the final diagnosis. Attestation: By this signature, I attest that I have personally formulated the final interpretation expressed in this report and that the above diagnosis is based upon my examination of the slides and/or other material indicated in this report. +++ +++ Shoaib Daniels DO, Resident bm/05/10/2021 ############################## ############################## ############ Material Received: A: prostate chips History: 81-year-old male with a history of urinary retention. Gross Description: A. Fixative: Formalin Labeled: "Prostate chips for routine" Weight: 88 g Dimensions: 8.5 x 8.5 x 2.5 cm Cassettes A1-A25- entire specimen. (mpt) mt/05/09/2021 Specimen Tissue - Prostate Performing Organization Address City/[facility]/ZIP Code P faiza Number MAIN LAB [address] [place] [address] * PROSTATIC SPECIFIC ANTIGEN-PSA (05/09/2021 11:44 AM CDT) Prostatic 18.53 (H) <6.01 NG/ML MAIN LAB Specific Comment: Antigen REFERENCE RANGES AGE PSA VALUE <50 <=1.5 50-54 <=2.0 55-59 <=3.0 60-69 <=4.0 70+ <=6.0 Specimen Blood Performing Organization Address City/[facility] P faiza Number MAIN LAB [address] [place] [address] * HEMATOCRIT (05/09/2021 11:44 AM CDT) Hematocrit 33.1 (L) 40 - 50 % MAIN LAB Specimen Blood Performing Organization Address [facility] P faiza Number MAIN LAB [address] [place] [address] * HEMOGLOBIN (05/09/2021 11:44 AM CDT) Hemoglobin 10.2 (L) 13.5 - 16.5 GM/DL MAIN LAB Specimen Blood Performing Organization Address [facility] P faiza Number MAIN LAB [address] [place] [address] * TELEMETRY STRIPS-SCAN (05/09/2021 12:00 AM CDT) Narrative Performed At This result has an attachment that is n ot available. Ordered by an unspecified provider. 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 TOTAL ACETAMINOPHEN DOSE NOT TO EXCEED 4 GM DAILY., Pre-Op 05/10/2021 5:40 AM CDT 650 mg acetaminophen (TYLENOL) tablet 650 mg Given 650 mg, Oral, EVERY 6 HOURS PRN, Starting on Sun05/09/21 at 1829, Until Sun05/10/21 at 1555, Pain non-opioid: may be used alone or in combination wit h opioid analgesia, TOTAL ACETAMINOPHEN DOSE NOT TO EXCEED 4GM DAILY 650 mg Given 05/09/2021 9:42 PM CDT 05/09/2021 4:33 PM CDT 0.5 suppositories Anus belladonna/opium (B&O) 16.2/60 mg rectal Given suppository INTRA-PROCEDURE MED, Starting on Sun05/09/21 at 1652, Until Sun05/09/21 at 1652, Intra-op 05/10/2021 8:31 AM CDT 1 g ceFAZolin (ANCEF) IVP 1 g Given 1 g, Intravenous, EVERY 8 HOURS, 2 doses, First dose on Sun05/10/21 at 0030, Last dose on Sun05/10/21 at 0830, IV PUSH -- RECONSTITUTE each 1 g vial b y adding 10 mLs of STERILE WATER (SW) 1 g Given 05/10/2021 12:19 AM CDT 05/09/2021 12:02 PM CDT 2 g ceFAZolin (ANCEF) IVP 2 g Given 2 g, Intravenous, ONCE, 1 dose, On Sun05/09/21 at 1130, Give Pre-Op < 60 minutes prior to first incision. (Given in OR). IV PUSH -- RECONSTITUTE each 1 g vial by adding 10 mLs of STERILE WATER (SW), FIRST LINE - for patients < 120 kg, Pre-Op 05/09/2021 4:02 PM CDT lactated ringers infusion Given - New 1,000 mL, 1,000 mL, Intravenous, at 20 Bag mL/hr, CONTINUOUS, Starting on Sun05/09/21 at 1130, Until Sun05/10/21 at 1555, Pre-Op Infusion Restarted 05/09/2021 12:40 PM CDT 1,000 mL 20 mL/hr Given - New Bag 05/09/2021 11:45 AM CDT 05/09/2021 9:42 PM CDT 3 mg melatonin (MELATIN) tablet 3 mg Given 3 mg, Oral, AT BEDTIME PRN, Starting on Sun05/09/21 at 1829, Until Sun05/10/21 at 1555, Insomnia ondansetron (ZOFRAN ODT) rapid dissolve tablet 4 mg 4 mg, Oral, EVERY 6 HOURS PRN, Startin g on Sun05/09/21 at 1829, Until Sun05/10/21 at 1555, Nausea/Vomiting PO, Place on tongue and allow to dissolve. ondansetron (ZOFRAN) injection 4 mg 4 mg, Intravenous, EVERY 6 HOURS PRN, Starting on Sun05/09/21 at 1829, Until Sun05/10/21 at 1555, Nausea/Vomiting Injectable 05/09/2021 9:42 PM CDT 1 tablet senna (SENOKOT) tablet 1 tablet Given 1 tablet, Oral, TWICE DAILY PRN, Starting on Sun05/09/21 at 1829, Until Sun05/10/21 at 1555, Constipation PO, Hold for loose stools 05/09/2021 9:44 PM CDT 75 mL/hr sodium chloride 0.9 % infusion Given - New 1,000 mL, Intravenous, at 75 mL/hr, Bag CONTINUOUS, Starting on Sun05/09/21 at 1715, Until Sun05/10/21 at 1555 05/09/2021 4:33 PM CDT 90,000 mL Other sodium chloride 0.9 % irrigation bag Given INTRA-PROCEDURE MED, Starting on Sun05/09/21 at 1633, Until Sun05/09/21 at 1653, Intra-op 05/10/2021 12:19 AM CDT 10 mL WATER FOR INJECTION, STERILE IJ SOLN Given (Cabinet Override) NOW, 1 dose, On Sun05/10/21 at 0015, Created by cabinet override, Created by cabinet override documented in this encounter Discontinued Medications Start Date End Date Medication Sig Discontinue Reason 05/10/2021 senna/docusate Take 1 Reorder (SENOKOT-S) 8.6/50 mg tablet by tablet mouth daily. 05/10/2021 05/10/2021 cephalexin (KEFLEX) 500 Take one mg capsule capsule by mouth every 12 hours for 5 days. documented as of this encounter Active and Recently Administered Medications Times are shown in CDT. 05/09/2021 05/10/2021 Medication Order 05/08/2021 1137 (Given - Provider: Leonie Damon RN) acetaminophen (TYLENOL EXTRA STRENGTH) tablet 1,000 mg (COMPLETED) 1,000 mg, Oral, ONCE, 1 dose, On Sun05/09/21 at 1130, To be given pre-op wit h a sip of water immediately upon arrival to bay (>30 minutes prior to scheduled surgery time). TOTAL ACETAMINOPHEN DOSE NOT TO EXCEED 4 GM DAILY., Pre-Op 0019 (Given - Provider: Bigg Batista)0831 (Given - Provider: Anne Jaquez RN) ceFAZolin (ANCEF) IVP 1 g (COMPLETED) 1 g, Intravenous, EVERY 8 HOURS, 2 doses, First dose on Sun05/10/21 at 0030, Last dose on Sun05/10/21 at 0830, IV PUSH -- RECONSTITUTE each 1 g vial b y adding 10 mLs of STERILE WATER (SW) 1202 (Given - Provider: Leonie Damon RN) ceFAZolin (ANCEF) IVP 2 g (COMPLETED) 2 g, Intravenous, ONCE, 1 dose, On Sun05/09/21 at 1130, Give Pre-Op < 60 minutes prior to first incision. (Given in OR). IV PUSH -- RECONSTITUTE each 1 g vial by adding 10 mLs of STERILE WATER (SW), FIRST LINE - for patients < 120 kg, Pre-Op 1830 (Due) sodium chloride 0.9 % irrigation bag 3,000 mL 3,000 mL, 3,000 mL, Irrigation, ONCE, 1 dose, On Sun05/09/21 at 1830, Titrate CBI to light pink 0019 (Given - Provider: Bigg Batista - Comment: To reconstitue antibiotic) WATER FOR INJECTION, STERILE IJ SOLN (Cabinet Override) (COMPLETED) NOW, 1 dose, On Sun05/10/21 at 0015, Created by cabinet override, Created by cabinet override 05/09/2021 05/10/2021 Medication Order 05/08/2021 1145 (Given - New Bag - Provider: Portia Damon RN)1237 (Anesthesia Continue from Pre-Post - Provider: Reece Crews MD)1239 (Infusion Paused - Provider: COLLIN Workman - Comment: Switch to gravity)1240 (Infusion Restarted - Provider: COLLIN Workman)1346 (Anesthesia Volume Adjustment - Provider: COLLIN Workman)1602 (Given - New Bag - Provider: COLLIN Workman)1634 (Anesthesia Volume Adjustment - Provider: COLLIN Workman) lactated ringers infusion 1,000 mL, 1,000 mL, Intravenous, at 20 mL/hr, CONTINUOUS, Starting on Sun05/09/21 at 1130, Until Sun05/10/21 at 1555, Pre-Op 1715 (Due)2143 (Given - New Bag - Provid er: Ashlyn Cr RN) sodium chloride 0.9 % infusion 1,000 mL, Intravenous, at 75 mL/hr, CONTINUOUS, Starting on Sun05/09/21 at 1715, Until Sun05/10/21 at 1555 05/09/2021 05/10/2021 Medication Order 05/08/2021 2142 (Given - Provider: Bigg Batista) 0540 (Given - Provider: Bigg Batista) acetaminophen (TYLENOL) tablet 650 mg 650 mg, Oral, EVERY 6 HOURS PRN, Starting on Sun05/09/21 at 1829, Until Sun05/10/21 at 1555, Pain non-opioid: may be used alone or in combination wit h opioid analgesia, TOTAL ACETAMINOPHEN DOSE NOT TO EXCEED 4GM DAILY bacitracin topical ointment Topical, NEEDED, Starting on Sun05/09/21 at 1829, Until Sun05/10/21 at 1555, Catheter irritation/lubrication, Apply to where catheter inserts to peni s for lubrication/irritation 1633 (Given - Provider: Aki Astorga MD - Comment: 30mg suppository given) belladonna/opium (B&O) 16.2/60 mg recta l suppository (CANCELED) INTRA-PROCEDURE MED, Starting on Sun05/09/21 at 1652, Until Sun05/09/21 at 1652, Intra-op fentaNYL citrate PF (SUBLIMAZE) injection 25-50 mcg 25-50 mcg, Intravenous, EVERY 1 HOUR PRN, Starting on Sun05/09/21 at 1829, Until Sun05/10/21 at 1555, Pain Injectable hyoscyamine (ANASPAZ) rapid dissolve tablet 0.125 mg 0.125 mg, Sublingual, EVERY 4 HOURS PRN, Starting on Sun05/09/21 at 1829, Until Sun05/10/21 at 1555, Bladder Spasms labetaloL (NORMODYNE) injection 10 mg 10 mg, Intravenous, EVERY 6 HOURS PRN, Starting on Sun05/09/21 at 1829, Until Sun05/10/21 at 1555, Systolic Blood Pressure..., SBP >160, Hold for heart rate < 50 bpm 2142 (Given - Provider: Bigg Batista) melatonin (MELATIN) tablet 3 mg 3 mg, Oral, AT BEDTIME PRN, Starting on Sun05/09/21 at 1829, Until Sun05/10/21 at 1555, Insomnia ondansetron (ZOFRAN ODT) rapid dissolve tablet 4 mg(Linked Group 1) 4 mg, Oral, EVERY 6 HOURS PRN, Startin g on Sun05/09/21 at 1829, Until Sun05/10/21 at 1555, Nausea/Vomiting PO, Place on tongue and allow to dissolve. ondansetron (ZOFRAN) injection 4 mg(Linked Group 1) 4 mg, Intravenous, EVERY 6 HOURS PRN, Starting on Sun05/09/21 at 1829, Until Sun05/10/21 at 1555, Nausea/Vomiting Injectable oxybutynin chloride (DITROPAN) tablet 5 mg 5 mg, Oral, THREE TIMES DAILY PRN, Starting on Sun05/09/21 at 1829, Until Sun05/10/21 at 1555, Bladder Spasms, Severe oxyCODONE (ROXICODONE) tablet 5-15 mg 5-15 mg, Oral, EVERY 4 HOURS PRN, Starting on Sun05/09/21 at 1829, Until Sun05/10/21 at 1555, Pain PO polyethylene glycol 3350 (MIRALAX) packet 17 g 17 g (1 packet), Oral, DAILY PRN, Starting on Sun05/09/21 at 1829, Until Sun05/10/21 at 1555, Constipation PO, 8.5 GRAMS = 0.5 PACKET 17 GRAMS = 1 PACKET 34 GRAMS = 2 PACKETS 2141 (Given - Provider: Bigg Batista) senna (SENOKOT) tablet 1 tablet 1 tablet, Oral, TWICE DAILY PRN, Starting on Sun05/09/21 at 1829, Until Sun05/10/21 at 1555, Constipation PO, Hold for loose stools 1633 (Given - Provider: Andi Bhatia - Comment: bladder/prostate) sodium chloride 0.9 % irrigation bag (CANCELED) INTRA-PROCEDURE MED, Starting on Sun05/09/21 at 1633, Until Sun05/09/21 at 1653, Intra-op Order Group 1: ondansetron (ZOFRAN ODT) rapid dissolve tablet 4 mgJump to med 4 mg, Oral, EVERY 6 HOURS PRN, Startin g on Sun05/09/21 at 1829, Until Sun05/10/21 at 1555, Nausea/Vomiting PO
Place on tongue a nd allow to dissolve.
Or ondansetron (ZOFRAN) injection 4 mgJump to med 4 mg, Intravenous, EVERY 6 HOURS PRN, Starting on Sun05/09/21 at 1829, Until Sun05/10/21 at 1555, Nausea/Vomiting Injectable documented in this encounter Orders First Ordered Date Medications Ordered That Might Not Have Count Last Ordered Date Been Administered acetaminophen (TYLENOL EXTRA STRENGTH) 1 05/09/2021 tablet 1,000 mg bacitracin topical ointment 1 05/09/2021 fentaNYL citrate PF (SUBLIMAZE) 1 2020 injection 25 mcg fentaNYL citrate PF (SUBLIMAZE) 1 2020 injection 25-50 mcg HYDROmorphone injection (DILAUDID) 0.5 1 05/09/2021 mg HYDROmorphone injection (DILAUDID) 1 mg 1 05/09/2021 hyoscyamine (ANASPAZ) rapid dissolve 1 1 tablet 0.125 mg labetaloL (NORMODYNE) injection 10 mg 1 05/09/2021 ondansetron (ZOFRAN ODT) rapid dissolve 1 05/09/2021 tablet 4 mg ondansetron (ZOFRAN) injection 4 mg 2 oxybutynin chloride (DITROPAN) tablet 5 1 05/09/2021 mg oxyCODONE (ROXICODONE) tablet 5-10 mg 1 05/09/2021 oxyCODONE (ROXICODONE) tablet 5-15 mg 1 05/09/2021 polyethylene glycol 3350 (MIRALAX) 1 11/2020 packet 17 g sodium chloride 0.9 % irrigation bag 1 1 3,000 mL First Ordered Date Diet Count Last Ordered Date DISCHARGE DIET REGULAR 1 05/10/2021 First Ordered Date Nursing Count Last Ordered Date DISCHARGE ACTIVITY DRIVING 1 05/10/2021 DISCHARGE ACTIVITY STRENUOUS 1 DISCHARGE COMMENTS 1 05/10/2021 DISCHARGE CONTACT 1 05/10/2021 DISCHARGE ORDERS COMPLETE NOTIFICATION 1 05/10/2021 DISCHARGE RETURN APPOINTMENT 1 DISCHARGE SIGNS/SYMPTOMS 1 05/10/2021 DISCHARGE URINARY CATHETER CARE 1 2020 First Ordered Date Admission Count Last Ordered Date PLACE PATIENT EXTENDED RECOVERY CLASS 1 05/09/2021 First Ordered Date Discharge Count Last Ordered Date DISCHARGE PATIENT NOW 1 05/10/2021 First Ordered Date Equipment Count Last Ordered Date COMPRESSION DEVICE, LEG 1 05/09/2021 PUMP IV CONTROL UNIT W/MODULES 1 021 First Ordered Date Vital Signs Count Last Ordered Date VITAL SIGNS 1 05/09/2021 First Ordered Date Activity Count Last Ordered Date MOBILITY 1 05/09/2021 First Ordered Date Discharge Contingent Count Last Ordered Date DISCHARGE PATIENT CONTINGENT 1 First Ordered Date Order Set Communication Count Last Ordered D ate VTE DRUG PROPHYLAXIS CONTRAINDICATED 1 1 First Ordered Date Intake & Output Count Last Ordered Date INTAKE AND OUTPUT 1 05/09/[address] & Maintain Count Last Ordered Date PLACE AND MAINTAIN SCD 1 05/09/2021 documented in this encounter Additional Health Concerns Assessment Noted Time A fall risk assessment has been completed for the pat ient 05/10/2021 8:32 AM CDT documented as of this encounter
--- OUTSIDE RECORDS SUMMARY | 2021-05-30 13:29 | XMS REPORT | Encounter Summary ---
Author Author [facility] Organization [facility] Address Unknown Phone Unavailable Care Team Providers Care Pecan Cleaner Name Role Phone Rupal Alexander MD PCP Reason for Referral * Consult, Test & Treat (Routine) Referred By Contact Referred To Contact Status Reason Specialty Diagnoses / Procedures Reece Crews MD [address] Ortho/Med Pavilion Lvl 2 [address] [place] [address] New Request Specialty Services Diagnoses Required Urinary retention Stage 4 chronic kidney disease (HCC) BPH with obstruction/lower urinary tract symptoms Comments *Bessie Aguero Preferred Physical Therapy [address] [place] [address] p [facility] THERAPY [address] [place] [address] *Located off of [address] [facility] F[facility] [address] [facility] [address] [place] [address] [facility] PHYSICAL THERAPY [address] [place], [place] [facility] [address] [facility] [address] [place], [place] [facility] P[facility] [address] [facility] [address] [place] [address] [facility] [address] [place], [place] [facility] PH[facility]ICAL [facility] [address] [facility] [address] [place] [address] [facility] [address] [facility] [address] [place] [address] [facility] [address], [place] [facility] [address] [place], [place] [facility] [address] [place], [place] [facility] [address] [place], [place] [facility] [address] [place], [place] OUT PATIENT @ [facility] [address] [place], [place] [phone] [facility] [address] [place], [place] PREFERRED PHYSICAL THERAPY LOCATIONS IN [place], [place], [place], [facility], [place], [place] AND [place] [phone] [facility] [address] [place], [place] [facility] [address] [facility] [address] [facility] [address] [place], [place] [facility] [address] [place], [place] [facility] [address] [place], [place] [facility] [address] [place], [place] [facility] [address] [place], [place] [facility] [address], [place] [address] [phone] Electronically signed by Reece Crews MD at Reason for Visit * Auth/Cert Referred By Contact Referred To Contact Status Reason Specialty Diagnoses / Procedures Diagnoses Urinary retention Urinary retention [R33.9] P rocedures HI LASER ENUCLEATION PROSTATE W/MORCELLATION LASER ENUCLEATION PROSTATE WITH MORCELLATION - COMPLETE Encounter Details Care Team Description Date Type Department Reece Crews MD [address] Ortho[facility] Pavilion Lvl [address] [place] [address] BPH with obstruction/lower urinary tract symptoms 05/09/2021 Hospital Patient Care Unit H C8: - [facility]counter [facility] 05/10/[address] [place] [address] Social History Date Tobacco Use Types Packs/Day [...] Signs Reading Time Taken Comments Vital Sign 125/44 05/10/2021 11:00 AM CDT Blood Pressure 84 05/10/2021 11:00 AM CDT Pulse 36.8 C (98.3 F) 05/10/2021 11:00 AM CDT Temperature - - Respiratory Rate 93% 05/10/2021 11:00 AM CDT Oxygen Saturation - - Inhaled [...] light pink colored urine. Date 05/09/21700 - 05/10/21 0700 05/10/21 07 - 05/11/21 07 Shift 9739-2054 7350-9771 24 Hour Total 6932-9503 5550-7811 24 Hour Total INTAKE I.V.(mL/kg/hr) 1200(1.3) 1200 Other 600 600 Shift Total(mL/kg) 1800(24) 1800(24) OUTPUT Urine(mL/kg/hr) 100(0.1) 6200 6300 Urine 0 0 Urine Output (ml) (Indwelling Urinary Catheter 05/09/21 1445 22 FR) 100 6200 6 300 Other 705 705 Estimated Blood Loss 5 5 Irrigant/Flush Out (ml) (Indwelling Urinary Catheter 05/09/21 1445 22 FR) 700 700 Shift Total(mL/kg) 805(10.7) 6200(82.6) 7005(93.3) NET 995 -8710 -5205 Weight (kg) 75.1 75.1 75.1 75.1 75.1 75.1 Labs: Hematology Chemistry Recent Labs 05/10/21 0326 WBC 14.5* HGB 8.5* PLTCT 315 Recent Labs 05/10/21 0326 NA 140 K 5.4* CL 115* CO2 14* BUN 42* CR 2.69* GFR 23* GLU 108* CA 7.7* ACTIVE PROBLEMS: Principal Problem: BPH with obstruction/lower urinary tract symptoms Active Problems: Stage 4 chronic kidney disease (HCC) * Dickson Chris, RT - 05/09/2021 9:05 PM CDT RT [...] History and Physical Examination 05/09/2021 Patient: Raimundo Ayaal Admission Date: (Not on file), LOS: 0 [...] Dr. Lorrie Astorga MD Urology Resident Pager: [phone] __ HPI: Raimundo Ayala is a 81 [...] Social Gatherings with Friends and Family: Attends [employer] Services: Active Member of Clubs or Organizations: [...] output data in the 24 hours ending 05/09/21 05 Physical Exam: Constitutional: No acute distress. HEENT: [...] the patient. Sonia Barnett RNCM Integrated Nurse Glycerin Operator On Voalte *[phone] * Operative Report (Direct Entry) - Reece [...] Versacut Morcellator ANESTHESIA: General DRAINS: 1. 22 Maori 3-way catheter with 60cc in balloon IRRIGATION [...] identifying the patient and procedure. Next, a 26-Maori continuous flow resectoscope with a visual obturator [...] with a long nephro scope. Using the Gogetitis Versacut morcellator, prostate adenoma was morcellated . There were four prostatic nodules that were unable to be morcellated and were removed via basket. All tissues was sent to Pathology. No bladder injury was albert tained during morcellation. The morcellator was removed. Use of the Lumenis Versacut significantly increased morcellation time. A 22-Maori, 3-way catheter was advanced into the bladder [...] (L) >60 mL/min [facility] Comment: [place] The eGFR is not validated f or use in drug dosing adjustments. Continue to use estimated creatinine clearance per dosing reference text. Please contact the Clinical Pharmacist for questions. eGFR 30 (L) >60 mL/min [facility] [place] Comment: The eGFR is not validated for use in drug dosing adjustments. Continue to use estimated creatinine clearance per dosing reference text. Please contact the Clinical Pharmacist for questions. Specimen Blood Performing Organization Address City/State/ZIP Code P faiza Number [facility] [address] [place] [address] * BASIC METABOLIC PANEL (05/10/2021 3:26 AM [...] (L) >60 mL/min [facility] Comment: [place] The eGFR is not validated f or use in drug dosing adjustments. Continue to use estimated creatinine clearance per dosing reference text. Please contact the Clinical Pharmacist for questions. eGFR 28 (L) >60 mL/min [facility] [place] Comment: The eGFR is not validated for use in drug dosing adjustments. Continue to use estimated creatinine clearance per dosing reference text. Please contact the Clinical Pharmacist for questions. Specimen Performing Organization Address City/State/ZIP Code P faiza Number [facility] [address] [place] [address] * CBC AND DIFF (05/10/2021 3:26 AM [...] Absolute 0.90 (H) 0 - 0.80 K/UL [facility] Monocyte Count Absolute 0.00 0 - 0.45 [facility] Eosinophil Count Absolute 0.00 0 - 0.20 K[facility] Basophil Count Specimen Performing Organization Address City/State/ZIP Code P faiza Number [facility] [address] [place] [address] * SURGICAL PATHOLOGY (05/09/2021 1:23 PM CDT) PATHOLOGY [facility] [employer] [facility] [email or web address] Department of Pathology and Laboratory Medicine [address] [place] [address] Surgical Pathology Office: [phone] SURGICAL PATHOLOGY REPORT NAME: RAIMUNDO AYALA SURG PATH #: [id number] MR #: [id number] SPECIMEN CLASS: SR BILLING #: [id number] ALT ID #: LOCATION: [facility] DATE OF PROCEDURE: 05/09/2021 AGE: 81 SEX: M DATE RECEIVED: 05/09/2021 : 1940 TIME RECEIVED: 17:04 PHYSICIAN: REECE CREWS MD DATE OF REPORT: 05/11/2021 COPY TO: DATE OF PRINTIN05/11/2021 ############################## ############################## ############ Final Diagnosis: A. Prostate chips, TURP: Prostatic adenocarcinoma, Chesterfield score 7 (3+4), grade group 2, involving less than 5% of submitted tissue. Background prostatic tissue with glandular and stromal hyperplasia. Comment: Immunohistochemical stains for basal cell markers and P504s (PIN-4) performed on block A2 support the above diagnosis. Pursuant to the Supervisor Fine Grading [facility] Pathology Department, selected slides from this case have been concurrently reviewed by Dr. Love Silva who agrees with the final diagnosis. Attestation: By this signature, I attest that I have personally formulated the final interpretation expressed in this report and that the above diagnosis is based upon my examination of the slides and/or other material indicated in this report. +++ +++ Shoaib Daniels DO, Resident /05/10/2021 ############################## ############################## ############ Material Received: A: prostate chips History: 81-year-old male with a history of urinary retention. Gross Description: A. Fixative: Formalin Labeled: "Prostate chips for routine" Weight: 88 g Dimensions: 8.5 x 8.5 x 2.5 cm Cassettes A1-A25- entire specimen. (mpt) mt/05/09/2021 Specimen Tissue - Prostate Performing Organization Address City/[facility]/ZIP Code P faiza Number [facility] [address] [place] [address] * PROSTATIC SPECIFIC ANTIGEN-PSA (05/09/2021 11:44 AM CDT) Prostatic 18.53 (H) <6.01 NG/ML MAIN LAB Specific Comment: Antigen REFERENCE RANGES AGE PSA VALUE <50 <=1.5 50-54 <=2.0 55-59 <=3.0 60-69 <=4.0 70+ <=6.0 Specimen Blood Performing Organization Address City/[facility] Code P faiza Number MAIN LAB [address] [place] [address] * HEMATOCRIT (05/09/2021 11:44 AM CDT) Hematocrit 33.1 (L) 40 - 50 % MAIN LAB Specimen Blood Performing Organization Address City/[facility]/ZIP Code P faiza Number MAIN LAB [address] [place] [address] * HEMOGLOBIN (05/09/2021 11:44 AM CDT) Hemoglobin 10.2 (L) 13.5 - 16.5 GM/DL MAIN LAB Specimen Blood Performing Organization Address City/[facility] Code P faiza Number [facility] LAB [address] [facility] [place] [address] * TELEMETRY STRIPS-SCAN (05/09/2021 12:00 AM CDT) Narrative Performed At This result has an attachment that is n ot available. Ordered by an unspecified provider. 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 and other lower urinary tract symptoms (LUTS) Urinary retention Retention of urine, unspecified Stage 4 chronic kidney disease (HCC) documented in this encounter Admitting Diagnoses Diagnosis [...] 650 mg Given 05/09/2021 9:42 PM CDT 05/10/2021 8:31 AM CDT 1 g ceFAZolin [...] Sun05/09/21 at 1715, Until Sun05/10/21 at 1555 05/10/2021 12:19 AM CDT 10 mL WATER [...] 1130, Until Sun05/10/21 at 1555, Pre-Op 1715 (Due)2144 (Given - New Bag - Provid er: Ashlyn Cr RN) sodium chloride 0.9 % infusion 1,000 mL, Intravenous, at 75 mL/hr, CONTINUOUS, Starting on Sun05/09/21 at 1715, Until Sun05/10/21 at 1555 05/09/2021 05/10/2021 Medication Order 05/08/2021 2142 (Given - Provider: Bigg aBtista) 0540 (Given - Provider: Bigg Batista) acetaminophen [...] Hold for heart rate < 50 bpm 2141 (Given - Provider: Bigg Batista) melatonin (MELATIN) [...] stools 1633 (Given - Provider: Andi Bhatia D - Comment: bladder/prostate) sodium chloride 0.9 % [...] 1,000 mg bacitracin topical ointment 1 05/09/2021 belladonna/opium (B&O) 16.2/60 mg rectal 1 05/09/2021 suppository fentaNYL citrate PF (SUBLIMAZE) 1 2020 injection [...] chloride 0.9 % irrigation bag 1 1 sodium chloride 0.9 % irrigation bag 1 1 3,000 mL First Ordered Date Diet Count Last Ordered Date DISCHARGE DIET REGULAR 1 05/10/2021 First Ordered Date Nursing Count Last Ordered Date DISCHARGE ACTIVITY DRIVING 1 05/10/2021 DISCHARGE ACTIVITY STRENUOUS 1 1 DISCHARGE COMMENTS 1 05/10/2021 DISCHARGE CONTACT 1 05/10/2021 DISCHARGE ORDERS COMPLETE NOTIFICATION 1 05/10/2021 DISCHARGE RETURN APPOINTMENT 1 1 DISCHARGE SIGNS/SYMPTOMS 1 05/10/2021 DISCHARGE URINARY [...]
--- OUTSIDE RECORDS SUMMARY | 2021-05-30 13:29 | XMS REPORT | Encounter Summary ---
Author Author [facility] Organization [facility] Address Unknown Phone Unavailable Care Team Providers Care Professional Fee Coder Name Role Phone Rupal Alexander MD PCP Encounter Details Care Team Description Date Type Department Sarkis Andrew MD [address] Ortho/Med Pavilion [address] [place], [place] [id number] 05/09/2021 Documentation Urology: Abel [facility]endosa, Medical Pavilion [address] [place] [id number] Social History Date Tobacco Use Types Packs/Day [...] impairment: No documented as of this encounter Progress Notes * Diana Villasenor - 05/09/2021 11:59 PM CDT Research Informed Consent Note Study Title: SOLTIVE Laser Enucleation for Treatment of Benign Prostatic Hype rplasia: A Wound Care Specialist Study in the [facility]: [id number] Consent Version Date: 01/25/2021-12/01/2021 NAME: Abdulaziz Vasquez :1940 AGE: 81 y.o. Clinical research participation and research nature of the trial were discussed with subject during todays visit. The subject was alert and oriented during cons ent discussion. Subject was informed that study is voluntary and he may withdra w consent at any time for any reason by notifying study team. Study purpose, pro cedures, tests, samples to be obtained, potential side effects, benefits, forese eable risks and duration of study were discussed. HIPAA information, compensatio n and insurance pre-certification were discussed per consent form. Alternatives to participation were discussed per consent form. Subject verbalized understand ing. Subject was provided time to review the consent form and discuss participation i n this study. All questions asked were answered to his satisfaction. Subject v oiced desire to participate in the study and signed the informed consent form wi thout coercion and undue influence. A copy of the signed consent was given to andriy lund subject and scanned to subjects' medical records. Contact information for the study team was given to the subject. A copy of the consent form was e-mailed to [facility] [employer] ([facility]) for scanning into the subject's [facility] record. No research procedures took place prior to consenting. After obtaining consent the patient filled out pre-op survey's including AUA sym ptom score, bother score, BPH impact index, ICIQ-UI short form, ICIQ-OAB, and [facility] Health Inventory for Men. After completion of the surveys, a Uroflow and PV R were performed to establish baseline pre-op urinary function. documented in this encounter Plan of Treatment Not on filedocumented as of this encounter Goals Goal Patient Associated Recent Progress Patient-Stat Aut hor Goal Type Problems ed? Recover from illness Hospital On track (05/10/2021 Yes Eli, 9:35 AM CDT) ANNE Hamm documented as of this encounter Visit Diagnoses Not on filedocumented in this encounter Additional Health Concerns Assessment Noted Time A fall risk assessment has been completed for the pat ient 05/09/2021 9:42 PM CDT documented as of this encounter
--- OUTSIDE RECORDS SUMMARY | 2021-05-30 13:29 | XMS REPORT | Encounter Summary ---
Author Author [facility] Organization [facility] Address Unknown Phone Unavailable Care Team Providers Care Nutrition Teacher Name Role Phone Rupal Alexander MD PCP Reason for Visit * Reason Onset Date Comments Medical Question 04/18/2021 Encounter Details Care Team Description Date Type Department Sarkis Andrew MD [address] Ortho/Med Pavilion [address] [place] [address] Medical Question 04/18/2021 Telephone Urology: Abel [facility] [address] [place] [address] Social History Date Tobacco Use Types Packs/Day [...] Date Recorded Male 04/14/2021 10:33 AM CDT documented as of this encounter Functional Status [...] impairment: No documented as of this encounter Miscellaneous Notes * Telephone Encounter - Yvtete Harrell LPN - 04/19/2021 11:25 AM CDT I called and spoke with Meghan. I let her know that Dr Andrew would like two weeks of ABx of their choice. He does not want an indwelling catheter for the pt but t hat he will most likely have one after the surgery. She voices understanding and will carry that on to Dr Alexander and the pt, * Telephone Encounter - Charley Meza RN - 04/18/2021 1:57 PM CDT Meghan with Dr Alexander's office left message with Urology nurse line. They sent pat ient's urine off because concerned about possible kidney infection. Patient is [facility] Prostate surgery 05/09. She said patient CIC TID. Patient wondering if he c an get an indwelling catheter up till his surgery with Dr Andrew on 05/09/21. Call back at Dr Alexander's office to reach Meghan is [phone]. documented in this encounter Plan of Treatment [...] has been completed for the pat ient 04/18/2021 3:06 PM CDT documented as of this encounter
--- OUTSIDE RECORDS SUMMARY | 2021-05-30 13:29 | XMS REPORT | Encounter Summary ---
Author Author [facility] Organization [facility] Address Unknown Phone Unavailable Care Team Providers Care Living Specialist Name Role Phone Rupal Alexander MD PCP Encounter Details Care Team Description Date Type Department 05/09/2021 Travel Social History Date Tobacco Use Types Packs/Day [...] impairment: No documented as of this encounter Plan of Treatment Not on [...]
--- OUTSIDE RECORDS SUMMARY | 2021-05-30 13:29 | XMS REPORT | Clinical Summary ---
Author Author [facility] Organization [facility] Address Unknown Phone Unavailable Care Team Providers Care Quality Control Tester Name Role Phone Rupal Alexander MD PCP Source Comments Some departments are not documenting in the electronic medical record. If you d o not see the information that you expected, contact Release of Information in [facility] Information Management department at [phone] for further assistan ce in locating additional records.[facility] Allergies Comments Active Allergy Reactions Severity Noted Date Venom-Honey Bee SYNCOPE High 04/18/2021 Medications End Date Status Medication Sig Dispensed Refills Start Date Active acetaminophen (TYLENOL) Take two 0 325 mg tablet tablets by 1 mouth every 6 hours as needed. Active bacitracin 500 unit/g Apply 0 05/10/20 2 topical ointment topically to 1 affected area as Needed (Catheter irritation/vincetn brication). Active senna/docusate Take one 90 tablet 0 (SENOKOT-S) 8.6/50 mg tablet by 1 tablet mouth daily. 05/10/2021 Discontinued (Reorder) senna/docusate Take 1 tablet 0 (SENOKOT-S) 8.6/50 mg by mouth tablet daily. 05/10/2021 Discontinued cephalexin (KEFLEX) 500 Take one 10 capsule 0 mg capsule capsule by 1 mouth every 12 hours for 5 days. Active Problems Problem Noted Date Stage 4 chronic kidney disease 05/10/2021 BPH with obstruction/lower urinary tract symptoms Urinary retention 11/15/2020 Last Assessment & Plan: Formatting of this note might be differ ent from the original. 80-year-old presents to clinic for penny tional evaluation of chronic urinary retention and consideration for additio nal interventions. Patient reports he had previously been seen by 2 [facility] physicians for evaluation and was instructed to follow-up with urology for consideration of surgical interventions. Patient has been perfor yfn intermittent catheterization of varying frequency over the last 2 years . Patient reports recently increase in frequency of urinary tract infection s as well as episodes of gross hematuria secondary to catheterization. Discussed possible etiologies for urina ry retention including obstructive causes, infection, neurologic causes, m edications, trauma and muscle dysfunction. Discussed medications classes including Alpha1-Blockers and 5-Alpha Reductase Inhibitors to help reduce sym ptoms. Provided information about the mechanism of action, risks, benefit s and adverse effects of both classes. Disucssed HoLEP/HoLAP, ReZum, TURP, wit h the benefits, risks and adverse effects. Discussed the risks and benefits of add itional testing including cystoscopy, transrectal ultrasound of t he prostate and urodynamics. Provided information about each procedu re and how they could provide added benefit to future treatment plans. Discussed CIC with the benefits, risks and adverse effects. Plan to schedule cystoscopy, transrecta l ultrasound the prostate and urodynamics with Dr. Crews for considera tion of bladder outlet procedure. Ordered PSA to establish baseline, he w ill have this drawn at his future appointment. Instructed patient to call our clinic i f he had any questions or concerns prior to his testing. Requested physic al records to be sent from [facility] in [place] to our office. Some records are available on care everywhere at this time but were unable to be accessed. Encounters Care Team Description Date Type Specialty Reece Crews MD LASER ENUCLEATION PROSTATE WITH MORCELLA TION - COMPLETE 05/09/2021 Surgery Rustam Rangel, Richelle Gaona SRNA 05/09/2021 Anesthesia Event Reece Crews MD BPH with obstruction/lower urinary tract symptoms 05/09/2021 Hospital - Encounter 05/10/2021 Reece Crews MD 05/09/2021 Documentation Urology 05/09/2021 Travel Reece Crews MD Medical Question 04/18/2021 Telephone Urology from Last 3 Months Surgical History Surgery Date Site/Laterality Comments HX TONSILLECTOMY PROSTATECTOMY 05/09/2021 Penis/N/A LASER ENUCLEATI ON PROSTATE WITH MORCELLATION - COMPLETE performed by Reece Crews M D at [facility] OR Medical History Medical History Date Comments Enlarged prostate Dyslipidemia Urinary tract infection Social History Date Tobacco Use Types Packs/Day [...] or suspected to have Coronavirus / COVID-19? Last Filed Vital Signs Reading Time Taken [...] 05/09/2021 11:21 AM CDT Body Mass Index Plan of Treatment Health Maintenance Due Date Last Done Comments MEDICARE ANNUAL WELLNESS 1940 VISIT DTAP/TDAP VACCINES (1 - 1957 Tdap) PHYSICAL (COMPREHENSIVE) 1957 EXAM SHINGLES RECOMBINANT 1989 VACCINE (1 of 2) PNEUMONIA (PPSV23) 2004 VACCINE (1 of 1 - PPSV23) INFLUENZA VACCINE 03/06/2021 05/13/2011 Goals Goal Patient Associated Recent Progress Patient-Stat Aut hor Goal Type Problems ed? 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 Comments Procedure Name Priority Date/Time Associated Diag nosis BASIC METABOLIC PANEL Routine 05/10/2021 10:05 AM CDT HC BASIC METABOLIC PANEL Routine 05/10/2021 3:26 AM CDT HC CBC W/ AUTOMATED DIFF Routine 05/10/2021 3:26 AM CDT HC LVL IV SRG PTH, GROSS Routine 05/09/2021 Urina ry retention & MICRO 1:23 PM CDT LASER ENUCLEATION 05/09/2021 Urinary retention PROSTATE WITH 12:38 PM CDT MORCELLATION - COMPLETE Special Needs 04/28 PER IM FROM [facility] PT CLASS CHANGED TO PLANNED EXTENDED RECOVERY - CC 1119 HC PROSTATIC SPECIF STAT 05/09/2021 AG(PSA);TOT 11:44 AM CDT HC HEMATOCRIT STAT 05/09/2021 11:44 AM CDT HC HEMOGLOBIN STAT 05/09/2021 11:44 AM CDT TELEMETRY STRIPS-SCAN 05/09/2021 12:00 AM CDT from Last 3 Months Results * BASIC METABOLIC PANEL (05/10/2021 10:05 AM CDT) Only the most recent of 2 results within the time period is included. Sodium 139 137 - 147 MMOL/L [facility] [...] (L) >60 mL/min [facility] Comment: [place] The eGFR is not validated f or use in drug dosing adjustments. Continue to use estimated creatinine clearance per dosing reference text. Please contact the Clinical Pharmacist for questions. eGFR 30 (L) >60 mL/min [facility] [place] Comment: The eGFR is not validated for use in drug dosing adjustments. Continue to use estimated creatinine clearance per dosing reference text. Please contact the Clinical Pharmacist for questions. Specimen Blood Performing Organization Address City/[facility]/ZIP Code P faiza Number [facility] [address] [place] [address] * CBC AND DIFF (05/10/2021 3:26 AM [...] LAB Basophil Count Specimen Performing Organization Address City/[facility]/ZIP Code P faiza Number [facility] [address] [place] [address] * SURGICAL PATHOLOGY (05/09/2021 1:23 PM CDT) PATHOLOGY [facility] [email or web address] Department of Pathology and Laboratory Medicine [address] [place] [id number] Surgical Pathology Office: [phone] SURGICAL PATHOLOGY REPORT NAME: RAIMUNDO AYALA SURG PATH #: [id number] MR #: [id number] SPECIMEN CLASS: SR BILLING #: [id number] ALT ID #: LOCATION: 8 DATE OF [...] support the above diagnosis. Pursuant to the Technician Support [employer] Program at the [facility] Pathology Department, selected slides from this [...] Specimen Tissue - Prostate Performing Organization Address [facility] P faiza Number MAIN LAB [address] [place] [address] * HEMOGLOBIN (05/09/2021 11:44 AM CDT) Hemoglobin 10.2 (L) 13.5 - 16.5 GM/DL [facility] Specimen Blood Performing Organization Address [facility] P faiza Number MAIN LAB [address] [place] [address] * HEMATOCRIT (05/09/2021 11:44 AM CDT) Hematocrit 33.1 (L) 40 - 50 % MAIN LAB Specimen Blood Performing Organization Address [facility] P faiza Number MAIN LAB [address] [place] [address] * PROSTATIC SPECIFIC ANTIGEN-PSA (05/09/2021 11:44 AM CDT) Prostatic 18.53 (H) <6.01 NG/ML MAIN LAB Specific Comment: Antigen REFERENCE RANGES AGE PSA VALUE <50 <=1.5 50-54 <=2.0 55-59 <=3.0 60-69 <=4.0 70+ <=6.0 Specimen Blood Performing Organization Address [facility] P faiza Number [facility] [address] [place] [address] * TELEMETRY STRIPS-SCAN (05/09/2021 12:00 AM CDT) Narrative Performed At This result has an attachment that is n ot available. Ordered by an unspecified provider. from Last 3 Months Insurance Type Payer Benefit Subscriber ID Effective Phone Address Plan / Dates Group Medicare AETNA MEDICARE AETNA [id number] 2019-P MEDICARE resent PPO [id number] Advance Directives Patient Social Science Analyst Explanation Type Date Recorded Advance Directive/DPOA Date Inactivated Comments Code Status Date Activated 05/10/2021 4:00 PM Full Code 05/09/2021 6:29 PM Provider has discussed Code Status No, discussion no t w/Patient or Family? necessary based on Dx
[2021-05-30 13:53] LABS: BASOPHILS # (AUTO) 0.1 10^3/uL (0.0-0.1); BASOPHILS % (AUTO) 0 % (0-10); EOSINOPHILS # (AUTO) 0.1 10^3/uL (0.0-0.3); EOSINOPHILS % (AUTO) 0 % (0-10); HEMATOCRIT 36 % (40-54); HEMOGLOBIN 10.5 g/dL (13.3-17.7); LYMPHOCYTES # (AUTO) 1.8 10^3/uL (1.0-4.0); LYMPHOCYTES % (AUTO) 11 % (12-44); MEAN CORPUSCULAR HEMOGLOBIN 22 pg (25-34); MEAN CORPUSCULAR HGB CONC 29 g/dL (32-36); MEAN CORPUSCULAR VOLUME 76 fL (80-99); MEAN PLATELET VOLUME 8.7 fL (9.0-12.2); MONOCYTES # (AUTO) 1.1 10^3/uL (0.0-1.0); MONOCYTES % (AUTO) 7 % (0-12); NEUTROPHILS # (AUTO) 12.6 10^3/uL (1.8-7.8); NEUTROPHILS % (AUTO) 80 % (42-75); PLATELET COUNT 554 10^3/uL (130-400); WHITE BLOOD COUNT 15.7 10^3/uL (4.3-11.0)
[2021-05-30 13:55] LABS: ALBUMIN 3.9 GM/DL (3.2-4.5)
[2021-05-30 13:56] LABS: POTASSIUM 4.2 MMOL/L (3.6-5.0)
[2021-05-30 13:57] LABS: CALCIUM 9.6 MG/DL (8.5-10.1)
[2021-05-30 14:00] LABS: BILIRUBIN,TOTAL 0.4 MG/DL (0.1-1.0)
[2021-05-30] MEDS ORDERED: NS IV 1000 ML 1,000 ML IV ONE (14:00)
[2021-05-30 14:02] LABS: CREATININE SERUM 2.5 MG/DL (0.60-1.30)
[2021-05-30 14:19] LABS: BAND NEUTROPHILS 0 %; BASOPHILS % (MANUAL) 0 %; EOSINOPHILS % (MANUAL) 1 %; LYMPHOCYTES % (MANUAL) 12 %; MONOCYTES % (MANUAL) 6 %; NEUTROPHILS % (MANUAL) 81 %; RBC MORPH NORMAL
--- NOTE | 2021-05-30 14:24 | ED General ---
General Chief Complaint: General Problems/Pain Stated Complaint: WEAKNESS/POSS DEHYDRATION/DIZZY/NAUSEATED Nursing Triage Note: PT SENT BY DR DOAN OFFICE FOR FURTHER EVALUATION. PT HAD A TURP IN ON May AND FEELS HE IS GETTING WEAKER. AT DR DOAN OFFICE, PT WAS NOTED TO HAVE ORTHOSTATIC HYPOTENSION. PT IS ALERT AND ORIENTED ON ARRIVAL. Source of Information: Patient Exam Limitations: No Limitations History of Present Illness Date Seen by Provider: May 30, 2021 Time Seen by Provider: 13:25 Initial Comments This is a well-appearing 81-year-old male who presents to the ER from Dr. Sepulveda's office for further evaluation. He recently had a TURP in [place] on May 09 and feels like he is getting weaker at that time he was diagnosed with anemia and almost required blood transfusion prior to discharge, however states that he did not have blood transfusion. He does have significant history of chronic urinary tract infections and is concerned he may also have another urinary tract infection. States that he is not eating or drinking well, feels nauseated, and weak. No fever, chills, cough, shortness of breath, chest pain. Allergies and Home Medications Allergies Coded Allergies: No Known Drug Allergies (Unverified , 08/05/20) Patient Home Medication List Home Medication List Reviewed: Yes Cefuroxime Axetil (Cefuroxime) 250 Mg Tablet, 250 MG PO BID Prescribed by: YOAV DON on 05/30/211704 Cephalexin (Keflex) 500 Mg Capsule, 500 MG PO TID Prescribed by: CORI BARCENAS on 08/05/20 1604 Ondansetron (Ondansetron Odt) 4 Mg Tab.rapdis, 4 MG PO Q6H PRN for NAUSEA/VOMITING Prescribed by: YOAV DON on 05/30/21 1707 Review of Systems Review of Systems Constitutional: dizziness, weight loss EENTM: no symptoms reported Respiratory: no symptoms reported Cardiovascular: no symptoms reported Gastrointestinal: see HPI Genitourinary: see HPI Musculoskeletal: no symptoms reported Skin: dryness Psychiatric/Neurological: Weakness Hematologic/Lymphatic: No Symptoms Reported Immunological/Allergic: no symptoms reported All Other Systems Reviewed Negative Unless Noted: Yes Past Uvqezjn-Kxmqpx-Kabfwk Hx Patient Social History Tobacco Use?: Yes Smoking Status: Never a Smoker Substance use?: No Alcohol Use?: No Pt feels they are or have been: No Immunizations Up To Date First/Initial COVID19 Vaccinat: MAR 2021 Second COVID19 Vaccination Charles: APR 2021 Seasonal Allergies Seasonal Allergies: No Past Medical History Surgeries: Yes Tonsillectomy Respiratory: No Cardiac: No Neurological: No Genitourinary: Yes Prostate Problems Gastrointestinal: No Musculoskeletal: No Endocrine: No HEENT: No Cancer: No Psychosocial: No Integumentary: No Blood Disorders: No Adverse Reaction/Blood Tranf: No Physical Exam Vital Signs Vital Signs - First Documented 05/30/21 13:22 Temp 36.3 Pulse 99 Resp 19 B/P (MAP) 137/84 (101) Pulse Ox 98 O2 Delivery Room Air Capillary Refill : Less Than 3 Seconds Height, Weight, BMI Height: '" Weight: lbs. oz. kg; 19.00 BMI Method: General Appearance: No Apparent Distress, WD/WN Eyes: Bilateral Eye Normal Inspection, Bilateral Eye PERRL, Bilateral Eye EOMI Progress/Results/Core Measures Suspected Sepsis SIRS Temperature: Pulse: 99 Respiratory Rate: 19 Laboratory Tests 05/30/21 13:35: White Blood Count 15.7H Blood Pressure 137 /84 Mean: 101 Laboratory Tests 05/30/21 13:35: Creatinine 2.50H, Platelet Count 554H, Total Bilirubin 0.4 Results/Orders Lab Results Laboratory Tests Test 05/30/21 13:35 05/30/21 16:40 Range/Units White Blood Count 15.7 H 4.3-11.0 10^3/uL Red Blood Count 4.70 4.30-5.52 10^6/uL Hemoglobin 10.5 L 13.3-17.7 g/dL Hematocrit 36 L 40-54 % Mean Corpuscular Volume 76 L 80-99 fL Mean Corpuscular Hemoglobin 22 L 25-34 pg Mean Corpuscular Hemoglobin Concent 29 L 32-36 g/dL Red Cell Distribution Width 16.1 H 10.0-14.5 % Platelet Count 554 H 130-400 10^3/uL Mean Platelet Volume 8.7 L 9.0-12.2 fL Immature Granulocyte % (Auto) 1 % Neutrophils (%) (Auto) 80 H 42-75 % Lymphocytes (%) (Auto) 11 L 12-44 % Monocytes (%) (Auto) 7 0-12 % Eosinophils (%) (Auto) 0 0-10 % Basophils (%) (Auto) 0 0-10 % Neutrophils # (Auto) 12.6 H 1.8-7.8 10^3/uL Lymphocytes # (Auto) 1.8 1.0-4.0 10^3/uL Monocytes # (Auto) 1.1 H 0.0-1.0 10^3/uL Eosinophils # (Auto) 0.1 0.0-0.3 10^3/uL Basophils # (Auto) 0.1 0.0-0.1 10^3/uL Immature Granulocyte # (Auto) 0.2 H 0.0-0.1 10^3/uL Neutrophils % (Manual) 81 % Lymphocytes % (Manual) 12 % Monocytes % (Manual) 6 % Eosinophils % (Manual) 1 % Basophils % (Manual) 0 % Band Neutrophils 0 % Blood Morphology Comment NORMAL Sodium Level 136 135-145 MMOL/L Potassium Level 4.2 3.6-5.0 MMOL/L Chloride Level 107 98-107 MMOL/L Carbon Dioxide Level 16 L 21-32 MMOL/L Anion Gap 13 5-14 MMOL/L Blood Urea Nitrogen 43 H 7-18 MG/DL Creatinine 2.50 H 0.60-1.30 MG/DL Estimat Glomerular Filtration Rate 25 BUN/Creatinine Ratio 17 Glucose Level 127 H 70-105 MG/DL Calcium Level 9.6 8.5-10.1 MG/DL Corrected Calcium 9.7 8.5-10.1 MG/DL Total Bilirubin 0.4 0.1-1.0 MG/DL Aspartate Amino Transf (AST/SGOT) 8 5-34 U/L Alanine Aminotransferase (ALT/SGPT) 9 0-55 U/L Alkaline Phosphatase 120 40-136 U/L Total Protein 8.0 6.4-8.2 GM/DL Albumin 3.9 3.2-4.5 GM/DL Urine Color YELLOW Urine Clarity CLOUDY Urine pH 6.0 5-9 Urine Specific [place] 1.020 1.016-1.022 Urine Protein 1+ H NEGATIVE Urine Glucose (UA) NEGATIVE NEGATIVE Urine Ketones NEGATIVE NEGATIVE Urine Nitrite POSITIVE H NEGATIVE Urine Bilirubin NEGATIVE NEGATIVE Urine Urobilinogen 0.2 < = 1.0 MG/DL Urine Leukocyte Esterase 3+ H NEGATIVE Urine RBC (Auto) 3+ H NEGATIVE Urine RBC 10-25 H /HPF Urine WBC TNTC H /HPF Urine Squamous Epithelial Cells NONE /HPF Urine Crystals NONE /LPF Urine Bacteria NEGATIVE /HPF Urine Casts NONE /LPF Urine Mucus NEGATIVE /LPF Urine Culture Indicated YES My Orders Orders - YOAV DON APRN Ua Culture If Indicated (05/30/21 13:24) Cbc With Automated Diff (05/30/21 13:46) Comprehensive Metabolic Panel (05/30/21 13:46) Ekg Tracing (05/30/21 13:46) Acute Abd Series (05/30/21 13:46) Ns Iv 1000 Ml (Sodium Chloride 0.9%) (05/30/21 14:00) Manual Differential (05/30/21 13:35) Acetaminophen Tablet/Caplet (Tylenol T (05/30/21 16:45) Urine Culture (05/30/21 16:40) Ceftriaxone (Rocephin) (05/30/21 17:00) Ondansetron Injection (Zofran Injectio (05/30/21 17:15) Medications Given in ED Current Medications Medications Dose Ordered Sig/Bindu Route Start Time Stop Time Status Last Admin Dose Admin Acetaminophen 650 mg ONCE ONCE PO 05/30/21 16:45 05/30/21 16:46 DC 05/30/21 17:05 650 MG Ceftriaxone Sodium 1000 mg/ Sterile Water 10 ml @ 200 mls/hr ONCE ONCE IV 05/30/21 17:00 05/30/21 17:02 DC 05/30/21 17:06 200 MLS/HR Ondansetron HCl 4 mg ONCE ONCE IVP 05/30/21 17:15 05/30/21 17:16 DC 05/30/21 17:15 4 MG Sodium Chloride 1,000 ml @ 999 mls/hr ONCE ONCE IV 05/30/21 14:00 05/30/21 15:00 DC 05/30/21 14:24 999 MLS/HR Vital Signs/I&O 05/30/21 05/30/21 13:22 17:17 Temp 36.3 37.3 Pulse 99 72 Resp 19 14 B/P (MAP) 137/84 (101) 140/87 Pulse Ox 98 100 O2 Delivery Room Air Room Air Capillary Refill : Less Than 3 Seconds Blood Pressure Mean: 101 Departure Impression Primary Impression: Urinary tract infection Disposition: 01 HOME, SELF-CARE Condition: Improved Departure-Patient Inst. Decision time for Depature: 16:57 Referrals: GLORY SEPULVEDA MD (PCP/Family) Primary Care Physician Patient Instructions: Urinary Tract Infection, Adult (DC) Add. Discharge Instructions: Plan: 1. Take antibiotics as directed and complete full course. 2. Drink plenty of fluids to stay hydrated. 3. You can buy over the counter probiotics to replenish your gut clari. 4. Follow up with your doctor if your symptoms persist. 5. Return for any new, concerning, or worsening symptoms. All discharge instructions reviewed with patient and/or family. Voiced understanding. Scripts Ondansetron (Ondansetron Odt) 4 Mg Tab.rapdis 4 MG PO Q6H PRN for NAUSEA/VOMITING, #20 TAB 0 Refills Prov: YOAV DON HYDRAULIC PRESS OPERATOR 05/30/21 Cefuroxime Axetil (Cefuroxime) 250 Mg Tablet 250 MG PO BID for 10 Days, #20 TAB 0 Refills Prov: YOAV DON HYDRAULIC PRESS OPERATOR 05/30/21 YOAV DON HYDRAULIC PRESS OPERATOR May 30, 2021 14:23
--- NOTE | 2021-05-30 15:38 | Diagnostic Imaging Report ---
INDICATION: Hypotension. TIME OF EXAM: 3:27 PM FINDINGS The heart size is normal. The lungs are clear. No infiltrates are seen. There is no free air. Bowel gas pattern is nonobstructed. There are multiple gallstones in the right upper quadrant. IMPRESSION: Cholelithiasis. No other significant abnormality is seen. Dictated by: Dictated on workstation # [id number]
[2021-05-30 16:45] LABS: BILIRUBIN,URINE NEGATIVE (NEGATIVE); CLARITY,URINE CLOUDY; COLOR,URINE YELLOW; GLUCOSE, URINE (UA) NEGATIVE (NEGATIVE); KETONES,URINE NEGATIVE (NEGATIVE); LEUKOCYTE ESTERASE ,URINE 3+ (NEGATIVE); NITRITE,URINE POSITIVE (NEGATIVE); PROTEIN,URINE 1+ (NEGATIVE)
[2021-05-30] MEDS ORDERED: ACETAMINOPHEN 325 MG TABLET PO ONE (16:45)
[2021-05-30 16:51] LABS: BACTERIA,URINE NEGATIVE /HPF; WBC,URINE TNTC /HPF
[2021-05-30] MEDS ORDERED: cefTRIAXone 1,000 MG in WATER (STERILE) FOR INJECTION 10 ML IV ONE (17:00)
[2021-05-30] MEDS ORDERED: CEFU250T80 PO (17:05)
[2021-05-30] MEDS ORDERED: ONDA4TAB11 PO (17:07)
[2021-05-30] MEDS ORDERED: ONDANSETRON 4 MG/2 ML (SDV) Z0FRAN IVP ONE (17:15)
[2021-05-30 17:17] VITALS: BP 140/87
== END 2021-05-30 17:26 | disposition home or self-care (01) ==
LOC: EDUNIT# 13:20 → ER 13:25
DX: N39.0 Urinary tract infection, site not specified (principal); Z72.0 Tobacco use
CPT/HCPCS: 36415; 74022; 80053; 81000; 85007; 85027; 87077; 87088; 87186; 93005

== ENCOUNTER 2021-06-25 17:43 | Emergency (ER) | payer MEDICARE ==
[~2021-06-25] VITALS: Ht 187.9 cm; Wt 64.4 kg
[~2021-06-25 17:43] MED LIST changes: +CEFD300C3 PO; +CEFU250T80 PO; +ONDA4TAB11 PO
--- NOTE | 2021-06-25 19:22 | ED Abdominal Pain ---
General Chief Complaint: Abdominal/GI Problems Stated Complaint: CONSTIPATION Source of Information: Patient Exam Limitations: No Limitations History of Present Illness Date Seen by Provider: Jun 25, 2021 Time Seen by Provider: 18:45 Initial Comments Patient is an 81-year-old male who presents with complaints of constipation. Last bowel movement was approximately 6 days ago. Patient states he has had a liquid bowel movement since the time and decreased appetite. Denies nausea vomiting abdominal pain. History of frequent constipation. Patient did take MiraLAX last night and 4 Dulcolax pills this morning without relief of symptoms. No fever chills sweats. No flank pain, urinary frequency urgency dysuria he maturia. No other acute symptoms or complaints. Additional history by family members. Timing/Duration: 6-7 Days Severity/Quality: Other Location: Unknown Radiation: Other Activities at Onset: Other Modifying Factors: Improves With Other Associated Symptoms: Other Allergies and Home Medications Allergies Coded Allergies: No Known Drug Allergies (Unverified , 08/05/20) Patient Home Medication List Home Medication List Reviewed: Yes Cefdinir (Cefdinir) 300 Mg Capsule, 300 MG PO BID, (Reported) Entered as Reported by: PEPE DOSS on 06/14/21 1208 Cefuroxime Axetil (Cefuroxime) 250 Mg Tablet, 250 MG PO BID Prescribed by: YOAV DON on 05/30/21 1705 Cephalexin (Keflex) 500 Mg Capsule, 500 MG PO TID Prescribed by: CORI BARCENAS on 08/05/20 1604 Ondansetron (Ondansetron Odt) 4 Mg Tab.rapdis, 4 MG PO Q6H PRN for NAUSEA/VOMITING Prescribed by: YOAV DON on 05/30/21 1707 Review of Systems Review of Systems Constitutional: see HPI EENTM: See HPI Respiratory: See HPI Cardiovascular: See HPI Gastrointestinal: See HPI Genitourinary: See HPI Musculoskeletal: see HPI Past Cpkndft-Zftcik-Ttwswe Hx Immunizations Up To Date First/Initial COVID19 Vaccinat: MAR 2021 Second COVID19 Vaccination Charles: APR 2021 Seasonal Allergies Seasonal Allergies: No Past Medical History Surgeries: Yes Tonsillectomy Respiratory: No Cardiac: No Neurological: No Genitourinary: Yes Prostate Problems Gastrointestinal: No Musculoskeletal: No Endocrine: No HEENT: No Cancer: No Psychosocial: No Integumentary: No Blood Disorders: No Adverse Reaction/Blood Tranf: No Physical Exam Vital Signs Vital Signs - First Documented 06/25/21 18:24 Temp 36.5 Pulse 99 Resp 19 B/P (MAP) 153/64 (93) Pulse Ox 97 O2 Delivery Room Air Capillary Refill : Height/Weight/BMI Height: '" Weight: lbs. oz. kg; 19.00 BMI Method: General Appearance: WD/WN, no apparent distress HEENT: PERRL/EOMI, normal ENT inspection Neck: supple, normal inspection Respiratory: chest non-tender, lungs clear Cardiovascular: normal peripheral pulses, regular rate, rhythm Gastrointestinal: non tender, soft, abnormal bowel sounds Extremities: normal range of motion, non-tender Neurologic/Psychiatric: alert, normal mood/affect, oriented x 3 Skin: normal color, warm/dry Focused Exam Sepsis Stage: Ruled Out Progress/Results/Core Measures Results/Orders My Orders Orders - TREE BELTRAN DO Acute Abd Series (06/25/21 19:22) Na Phos/Na Biphos Enema (Fleet Enema Armani (06/25/21 20:15) Medications Given in ED Current Medications Medications Dose Ordered Sig/Bindu Route Start Time Stop Time Status Last Admin Dose Admin Sodium Biphosphate/ Sodium Phosphate 1 ea ONCE ONCE OR 06/25/21 20:15 06/25/21 20:16 DC 06/25/21 20:15 1 EA Vital Signs/I&O 06/25/21 18:24 Temp 36.5 Pulse 99 Resp 19 B/P (MAP) 153/64 (93) Pulse Ox 97 O2 Delivery Room Air Departure Communication (Admissions) Acute abdominal series: Moderate stool burden without evidence of P SBO per radiology report Patient with constipation with inadequate response to home intervention. Will give enema in the emergency department with instructions to continue home care with mag citrate and PCP follow-up. Typical discharge abdominal discomfort/constipation signs will be given. Impression Primary Impression: Constipation Disposition: 01 HOME, SELF-CARE Condition: Stable Departure-Patient Inst. Decision time for Depature: 20:23 Referrals: GLORY SEPULVEDA MD (PCP/Family) Primary Care Physician Patient Instructions: Constipation in Adults Add. Discharge Instructions: You were evaluated in the emergency department for constipation. Please increase fluids and drink 1/4-1/2 bottle of magnesium citrate twice daily for the next 2 days and then follow-up with your PCP next week for reevaluation. If you develop new or worsening symptoms, return to the emergency department. All discharge instructions reviewed with patient and/or family. Voiced understanding. TREE BELTRAN DO Jun 25, 2021 19:22
[2021-06-25] MEDS ORDERED: NA PHOS/NA BIPHOS PED. ENEMA 1 EA BTL PR ONE (20:00)
--- NOTE | 2021-06-25 20:00 | Diagnostic Imaging Report ---
INDICATION: Constipation or small bowel obstruction. TECHNIQUE: Frontal view of the chest. Supine and upright frontal views of the abdomen. COMPARISON: 05/30/2021. FINDINGS: Lung volumes are normal. No consolidation is seen. There is no pleural effusion or pneumothorax although the costophrenic angles are incompletely included. The cardiac silhouette is normal in size. There is aortic atherosclerosis. No large collection of free air is seen. No distended loops of small bowel are identified. There is a low to moderate amount of stool in the colon. Numerous stones are seen in the gallbladder. IMPRESSION: 1. No high-grade small bowel distention. No free air. Low to moderate stool burden. 2. Cholelithiasis. Dictated by: Dictated on workstation # [id number]
[2021-06-25] MEDS ORDERED: FLEET ENEMA ADULT 1 EA BTL PR ONE (20:15)
[2021-06-25 20:35] VITALS: BP 142/68
--- OUTSIDE RECORDS SUMMARY | 2021-06-27 11:39 | XMS REPORT | Encounter Summary ---
Author Author [facility] Organization [facility] Address Unknown Phone Unavailable Care Team Providers Care Child And Adolescent Psychiatrist Name Role Phone Rupal Alexander MD PCP Encounter Details Care Team Description Date Type Department 06/22/2021 Travel Social History Date Tobacco Use Types [...] AM CDT Date Recorded COVID-19 Exposure Response 06/22/2021 10:48 AM PRESCHOOL TEACHER AIDE In the last month, have you been [...] filedocumented in this encounter Additional Health Concerns Noted Time Assessment 06/22/2021 11:58 AM PRESCHOOL TEACHER AIDE A fall risk assessment has been complet ed for the patient documented as of this encounter Care Teams Start Date End Date Child And Adolescent Psychiatrist Relationship Specialty 11/15/20 Rupal Alexander MD PCP - General [address] [address] documented as of this encounter
--- OUTSIDE RECORDS SUMMARY | 2021-06-27 11:39 | XMS REPORT | Encounter Summary ---
Author Author [facility] Organization [facility] Address Unknown Phone Unavailable Care Team Providers Care Technology Strategist Name Role Phone Rupal Alexander MD PCP Reason for Visit * Reason Comments Other Encounter Details Care Team Description Date Type Department Sarkis Andrew MD [address] [facility] [address] [place] [address] Benign prostatic hyperplasia, unspecifie d whether lower urinary tract symptoms present (Primary Dx); Urinary retention 06/22/2021 Office Visit Urology: [facility] [address] [place] [address] Social History Date Tobacco Use [...] Recorded COVID-19 Exposure Response 06/22/2021 10:48 AM FIRST DYER In the last month, have you been in contact with No / Unsure someone who was confirmed or suspected to have Coronavirus / COVID-19? documented as of this encounter Last Filed Vital Signs Reading Time Taken Comments Vital Sign 125/66 06/22/2021 11:59 AM FIRST DYER Blood Pressure 101 06/22/2021 11:59 AM FIRST DYER Pulse 36.7 C (98 F) 06/22/2021 11:59 AM FIRST DYER Temperature - - Respiratory Rate - - Oxygen Saturation - - Inhaled Oxygen Concentration 67.1 kg (148 lb) 06/22/2021 11:59 AM FIRST DYER Weight 185.4 cm (6' 1") 06/22/2021 11:59 AM FIRST DYER Height 19.53 06/22/2021 11:59 AM FIRST DYER Body Mass Index documented in this encounter [...] impairment: No documented as of this encounter Ordered Prescriptions Start Date End Date Prescription Sig Dispensed Refills 06/22/2021 cefdinir (OMNICEF) 300 mg Take one 20 capsule 0 capsule capsule by mouth every 12 hours. documented in this encounter Progress Notes * Sarkis Andrew MD - 06/22/2021 11:45 AM FIRST DYER Date of Service: 06/22/2021 Subjective: Abdulaziz Vasquez is a 81 y.o. male. History of Present Illness 81 y.o. male s/p HOLEP 05/09/21. Has been struggling. Sleeping through day, the n can't sleep at night. Poor appetite, issues with nausea. Is able to take PO, drinking gatorade, 2 bottles per day. Drinks glass of water. Can only eat sma ller portions than normal, nothing tastes good. Having some heartburn. Last BM yesterday, loose. Seen in [place] ED 05/30. Given hydration. Urine culture positive, treated a ppropriately with Bactrim. Also given zofran, which he has not needed to take. Today reports nausea has resolved and he is feeling a bit better. Has 2 doses o f Bactrim left. Notes urinary urgency with leakage, also with stress leakage. Wearing 6 depends and pads per day. Not doing kegels. PVR 10cc Objective: acetaminophen (TYLENOL) 325 mg tablet Take two tablets by mouth every 6 hour s as needed. Vitals: 06/22/21 1159 BP: 125/66 Pulse: 101 Temp: 36.7 C (98 F) Weight: 67.1 kg (148 lb) Height: 185.4 cm (73") PainSc: Zero Body mass index is 19.53 kg/m. Physical Exam Vitals reviewed. Constitutional: Appearance: Normal appearance. He is well-developed. He is not toxic-appearin g or diaphoretic. HENT: Head: Normocephalic and atraumatic. Nose: Nose normal. Eyes: Pupils: Pupils are equal, round, and reactive to light. Cardiovascular: Rate and Rhythm: Normal rate and regular rhythm. Pulmonary: Effort: Pulmonary effort is normal. Abdominal: General: Abdomen is flat. Palpations: Abdomen is soft. Musculoskeletal: General: No tenderness. Normal range of motion. Cervical back: Normal range of motion. Skin: General: Skin is warm and dry. Findings: No erythema. Neurological: General: No focal deficit present. Mental Status: He is alert and oriented to person, place, and time. Psychiatric: Mood and Affect: Mood normal. Behavior: Behavior normal. Thought Content: Thought content normal. Judgment: Judgment normal. Assessment and Plan: 81 y.o. male s/p HoLEP. Has been dealing with overall mal aise and not feeling well. Will check CBC, BMP today. Repeat urine culture. W ill change to Omnicef based on sensitivities from ED visit. Encouraged fiber, p robiotics. Zofran as needed for nausea. Reviewed sleep hygeine. Reviewed kege ls. Based on how things are going, not ready for PT at this time. RTC 6 weeks T DYER * Jessica Fu RN - 06/22/2021 11:45 AM FIRST DYER PVR=10mL. T DYER documented in this encounter Plan of Treatment Not on filedocumented as of this encounter Goals Goal Patient Associated Recent Progress Patient-Stat Aut hor Goal Type Problems ed? Recover from illness Hospital On track (05/10/2021 Yes Eli, 9:35 AM CDT) ANNE Hamm documented as of this encounter Procedures Comments Procedure Name Priority Date/Time Associated Diag nosis CULTURE-URINE Routine 06/22/2021 Urinary retenti on W/SENSITIVITY 12:20 PM FIRST DYER Benign prostatic hyperplasia, unspecified whether lower urinary tract symptoms present HC CBC,AUTOMATED Routine 06/22/2021 Urinary reten tion 11:47 AM FIRST DYER Benign prostatic hyperplasia, unspecified whether lower urinary tract symptoms present HC BASIC METABOLIC PANEL Routine 06/22/2021 Urina ry retention 11:47 AM FIRST DYER Benign prostatic hyperplasia, unspecified whether lower urinary tract symptoms present URINALYSIS, MICROSCOPIC 06/22/2021 Benign prosta tic 11:20 AM FIRST DYER hyperplasia, unspecified whether lower urinary tract symptoms present Urinary retention HC URINALYSIS, AUTO W 06/22/2021 Benign prostati c MICRO 11:20 AM FIRST DYER hyperplasia, unspec ified whether lower urinary tract symptoms present Urinary retention documented in this encounter Results * CULTURE-URINE W/SENSITIVITY (06/22/2021 12:20 PM FIRST DYER) Battery Name URINE CULTURE [facility] Report Status FINAL 06/23/2021 [facility] Specimen URINE MIDSTREAM [facility] Description Special No special requests [facility] Requests Culture <100,000 CFU/ml [facility] Urogenital and/or skin microbiota Specimen Urine Performing Organization Address City/State/ZIP Code P faiza Number [facility] [address] [place] [address] * CBC (06/22/2021 11:47 AM FIRST DYER) White Blood 11.2 (H) 4.5 - 11.0 K/UL [facility] Cells RBC 4.65 4.4 - 5.5 M/UL [facility] Hemoglobin 10.1 (L) 13.5 - 16.5 GM/DL [facility] Hematocrit 33.6 (L) 40 - 50 % [facility] MCV 72.2 (L) 80 - 100 FL [facility] MCH 21.8 (L) 26 - 34 PG [facility] MCHC 30.2 (L) 32.0 - 36.0 G/DL [facility] RDW 17.9 (H) 11 - 15 % [facility] Platelet Count 490 (H) 150 - 400 K/UL [facility] MPV 7.1 7 - 11 FL [facility] Specimen Blood (substance) Performing Organization Address City/[facility]/ZIP Code P faiza Number [facility] [address] [place] [address] * BASIC METABOLIC PANEL (06/22/2021 11:47 AM FIRST DYER) Sodium 137 137 - 147 MMOL/L [facility] Potassium 4.5 3.5 - 5.1 MMOL/L [facility] Chloride 106 98 - 110 MMOL/L [facility] CO2 19 (L) 21 - 30 MMOL/L [facility] Anion Gap 12 3 - 12 [facility] Glucose 115 (H) 70 - 100 MG/DL [facility] Blood Urea 26 (H) 7 - 25 MG/DL [facility] Nitrogen Creatinine 2.15 (H) 0.4 - 1.24 MG/DL [facility] Calcium 8.8 8.5 - 10.6 MG/DL [facility] eGFR Non 30 (L) >60 mL/min [facility] Comment: [place] The eGFR is not validated f or use in drug dosing adjustments. Continue to use estimated creatinine clearance per dosing reference text. Please contact the Clinical Pharmacist for questions. eGFR 36 (L) >60 mL/min [facility] [place] Comment: The eGFR is not validated for use in drug dosing adjustments. Continue to use estimated creatinine clearance per dosing reference text. Please contact the Clinical Pharmacist for questions. Specimen Blood (substance) Performing Organization Address [facility]/ZIP Code P faiza Number [facility] [address] [place] [address] * URINALYSIS, MICROSCOPIC (06/22/2021 11:20 AM FIRST DYER) WBCs,UA PACKED 0 - 2 /HPF [facility] RBCs,UA 20-50 0 - 3 /HPF [facility] WBC Clumps PRESENT [facility] Squamous 0-2 0 - 5 [facility] Epithelial Cells Specimen Performing Organization Address City/[facility]/ZIP Code P faiza Number [facility] [address] [place] [id number] * URINALYSIS DIPSTICK (06/22/2021 11:20 AM FIRST DYER) Color,UA YELLOW [facility] Turbidity,UA 1+ (A) CLEAR-CLEAR [facility] Specific 1.020Comment: NOTE NEW 1.005 - 1.030 [facility] [place]-Urine REFERENCE RANGES pH,UA 5.0 5.0 - 8.0 [facility] Protein,UA 2+ (A) NEG-NEG [facility] Glucose,UA NEG NEG-NEG [facility] Ketones,UA NEG NEG-NEG [facility] Bilirubin,UA NEG NEG-NEG [facility] Blood,UA 2+ (A) NEG-NEG [facility] Urobilinogen,UA NORMAL NORM-NORMAL [facility] Nitrite,UA NEG NEG-NEG [facility] Leukocytes,UA 3+ (A) NEG-NEG [facility] Urine Ascorbic NEG NEG-NEG [facility] Acid, UA Specimen Performing Organization Address City/State/ZIP Code P faiza Number [facility] [address] [place] [address] documented in this encounter Visit Diagnoses Diagnosis Benign prostatic hyperplasia, unspecifi ed whether lower urinary tract symptoms present - Primary Urinary retention Retention of urine, unspecified documented in this encounter Discontinued Medications Start Date End Date Medication Sig Discontinue Reason 05/10/2021 06/22/2021 bacitracin 500 unit/g Apply topical ointment topically to affected area as Needed (Catheter irritation/l ubrication). 05/10/2021 06/22/2021 senna/docusate Take one (SENOKOT-S) 8.6/50 mg tablet by tablet mouth daily. documented as of this encounter Additional Health Concerns Noted Time Assessment 06/22/2021 11:58 AM FIRST DYER A fall risk assessment has been complet ed for the patient documented as of this encounter Care Teams Start Date End Date Technology Strategist Relationship Specialty 11/15/20 Rupal Alexander MD PCP - [address] [id number] documented as of this encounter
--- OUTSIDE RECORDS SUMMARY | 2021-06-27 11:39 | XMS REPORT | Encounter Summary ---
Author Author [facility] Organization [facility] Address Unknown Phone Unavailable Care Team Providers Care Data Processing Manager Name Role Phone Rupal Alexander MD PCP Reason for Visit * Reason Onset Date Comments Research 06/21/2021 Encounter Details Care Team Description Date Type Department Sarkis Andrew MD [address] [facility] [address] [place] [address] Research 06/21/2021 Telephone Urology: [facility] [address] [place] [address] Social History Date Tobacco Use [...] encounter Miscellaneous Notes * Telephone Encounter - Jessica Fu, ANNE - 06/21/2021 4:42 PM FARMHAND Phoned patient to discuss symptoms. Patient reports when he went to [facility] he was given and IV with IVF and Vitamin infusion. He states he is in critical condition but that the ER would not admit him. After advising patient if he felt he was in critical condition he needed to go to ER. Daughter also became present for call and reported patient having not much appetite post surgery reports she believes he was 157lb prior to surgery and now down to 148lb. States he eats m aybe a pudding cup worth of food and x2 20oz bottles of gatorade daily plus wate r. Reports stomach issues and felt he was constipated so took a ducolax which ca used diarrhea for a couple of days but is still having diarrhea due to only push ing fluids. Patient is having BM's and reports passing gas however since surgery . Patient denied having a thermometer to be able to accurately and verifiably ch feliz temperature, daughter reports she will check on this. Confirming information from both patient and daughter that patient was sent with antibiotic and when yessenia olvera came back was then given a second antibiotic to cover for bacteria presen t in urine. Daughter states patient became ill with stomach upset after first an tibiotic and she requested from Dr. Tejeda different antibiotic which then patien t placed on Bactrim for x14 day course. Patient states he has 4 left that he sto pped taking. Daughter declined to ability to set up telehealth and will get sherry ent here in person tomorrow for visit authorized by Dr. Andrew for 1145am. Advised daughter if they can get here a bit early that would be great. To which she sta bentley, "no that's just not possible, we can't get there early". Informed her by th is I meant 15-20min prior to jean marie time. Daughter Indu then verified to make it b y 1130am tomorrow 06/22/[address] Dr[address] Andrew for jean marie. Indu did inqui re if Dr. Lorrie would admit patient or told me that he was willing to go to [facility] for rehab. Informed daughter it was above my scope to determine these an swers and would be questions that would have to be evaluated and discussed in rson tomorrow at appointment. Patient and daughter v/u. Requested if they had an y records from hospital visit to bring with them, she initially stated they were given nothing but reports she will look. Informed her records had been requeste d. HAND * Telephone Encounter - Aleksander Maki - 06/21/2021 3:04 PM FARMHAND Procedure Note Study Title: SOLTIVE Laser Enucleation for Treatment of Benign Prostatic Hype rplasia: A Chief Vendor Quality Study in the [facility]: [id number] Consent Version Date: 12-02-2020 to 12-01-2021 NAME: Abdulaziz Vasquez :1940 AGE: 81 y.o. Phone Call: Today I had the pleasure of speaking to Mr. Vasquez on the phone. He is s/p SOLEP on 05/11/21. Unfortunately, the patient has not been doing well since his last v isit. He has been experiencing some severe incontinence, intermittent nausea, vo miting, and hot flashes. He was seen in the ER in [place], [place] and they gave h im oral anti-emetics and IV fluids. The patient reported they did a UA culture t hat came back positive for a "kidney infection". He was prescribed an unknown an tibiotic and did not finish the course d/t the medication causing stomach discom fort. The patient also reported severe incontinence to the point where he "canno t hold fluids". I notified the nurse for Dr. Andrew that he has been experiencing these symptoms and they will reach out with a plan. The subject was advised to s [place] medical attention if his symptoms progress or if he notices any signs of inf ection. The subject was also instructed to reach out if he has any more concerns . We will r/s his 6wk post-op appt at a later date. HAND documented in this encounter Plan of Treatment Not on filedocumented as of this encounter Goals Goal Patient Associated Recent Progress Patient-Stat Aut hor Goal Type Problems ed? Recover from illness Hospital On track (05/10/2021 Yes Eli, 9:35 AM CDT) ANNE Hamm documented as of this encounter Visit Diagnoses Not on filedocumented in this encounter Additional Health Concerns Noted Time Assessment 05/10/2021 8:32 AM CDT A fall risk assessment has been complet ed for the patient documented as of this encounter Care Teams Start Date End Date Data Processing Manager Relationship Specialty 11/15/20 Rupal Alexander MD PCP - [address] [phone] documented as of this encounter
--- OUTSIDE RECORDS SUMMARY | 2021-06-27 11:39 | XMS REPORT | Encounter Summary ---
Author Author [facility] Organization [facility] Address Unknown Phone Unavailable Care Team Providers Care Lineman Service Or Work Dispatcher Name Role Phone Rupal Alexander MD PCP Reason for Visit * Auth/Cert Diagnoses / Procedures [facility]erred By [facility] Diagnoses Urinary retention Urinary retention [R33.9] Procedures [place] LASER ENUCLEATION PROSTATE W/MORCELLATION LASER ENUCLEATION PROSTATE WITH MORCELLATION - COMPLETE Referral ID Status Reason Start Date Expiration Visits Vi sits Date Requested Authorized [id number] 1 1 Encounter Details Care Team Description Date Type Department Reece Crews MD [address] Orth[facility] [address] [place] [address] LASER ENUCLEATION PROSTATE WITH MORCELLA TION - COMPLETE 05/09/2021 Surgery Operating Room: [address] 2 [place] [address] Surgery Details Trauma Case? Date/Time Status Location OR Service Patient Class Case Class Case Type 05/09/21 Posted 2 OR OR 01 Urology Planned Elective - 1:45 PM Extended Treating Recovery conditions that are not life or limb threatenin g Panel 1 Procedure LRB Anes Op Region Wound Class Com ments LASER ENUCLEATION N/A Defer to Penis Clean 1.5 H RS, 120 W laser, PROSTATE WITH Anesthesia Contaminated morcellator [id number] MORCELLATION - COMPLETE M ORCELLATION START: 1450 MORCELLATION STOP: Panel Surgeon Surgeon Role Service 1 Reece Crews MD Primary Urology 1 Aki Astorga MD Resident - Assisting Urology Special Needs 04/28 PER IM FROM [facility]ESSIE PT CLASS CHANGED TO PLANNED EXTENDED RECOVERY - 1119 Social History Date Tobacco Use Types [...] impairment: No documented as of this encounter Discharge Summaries * Sonia Barnett RN - 05/10/2021 9:56 AM [...] services have been selected for the patient. LOIS [employer] Integrated Nurse Supervisor [employer] *[phone] documented in this encounter Medications at Time of Discharge Start Date End Date Medication Sig Dispensed Refills 05/10/2021 acetaminophen (TYLENOL) Take two 0 325 mg tablet tablets by mouth every 6 hours as needed. 05/10/2021 06/22/2021 bacitracin 500 unit/g Apply 0 topical ointment topically to affected area as Needed (Catheter irritation/vincent brication). 05/10/2021 06/22/2021 senna/docusate Take one 90 tablet 0 (SENOKOT-S) 8.6/50 mg tablet by tablet mouth daily. documented as of this encounter Ordered Prescriptions Start Date End Date Prescription Sig Dispensed Refills 05/10/2021 acetaminophen (TYLENOL) Take two 0 325 mg tablet tablets by mouth every 6 hours as needed. 05/10/2021 05/10/2021 cephalexin (KEFLEX) 500 Take one 10 capsule 0 mg capsule capsule by mouth every 12 hours for 5 days. 05/10/2021 06/22/2021 senna/docusate Take one 90 tablet 0 (SENOKOT-S) 8.6/50 mg tablet by tablet mouth daily. 05/10/2021 06/22/2021 bacitracin 500 unit/g Apply 0 topical ointment topically to affected area as Needed (Catheter irritation/vincent brication). documented in this encounter Discharge Disposition Code [...] 05/09/21700 - 05/10/2169905/10/21700 - 05/11/21 07 Shift 8268-2290 4185-5911 24 Hour Total 6669-7293 4078-9314 24 Hour Total INTAKE I.V.(mL/kg/hr) 1200(1.3) 1200 Other 600 600 Shift Total(mL/kg) 1800(24) 1800(24) OUTPUT Urine(mL/kg/hr) 100(0.1) 6200 6300 Urine 0 0 Urine Output (ml) (Indwelling Urinary Catheter 05/09/21 1445 22 FR) 100 6200 6 300 Other 705 705 Estimated Blood Loss 5 5 Irrigant/Flush Out (ml) (Indwelling Urinary Catheter 05/09/21 1445 22 FR) 700 700 Shift Total(mL/kg) 805(10.7) 6200(82.6) 7005(93.3) NET 995 -6365 -9383 Weight (kg) 75.1 75.1 75.1 75.1 75.1 75.1 Labs: Hematology Chemistry Recent Labs 05/10/21325 WBC 14.5* HGB 8.5* PLTCT 315 Recent Labs 05/10/21325 NA 140 K 5.4* CL 115* CO2 [...] Dr. Lorrie Astorga MD Urology Resident Pager: [phone] __ HPI: Raimundo Ayala is a 81 [...] Social Gatherings with Friends and Family: Attends [employer] Services: Active Member of Clubs or Organizations: [...] data in the 24 hours ending 05/09/21 0552 Physical Exam: Constitutional: No acute distress. HEENT: [...] orders to display documented in this encounter OR Notes * Operative Report (Direct Entry) - Reece [...] Versacut Morcellator ANESTHESIA: General DRAINS: 1. 22 Japanese 3-way catheter with 60cc in balloon IRRIGATION [...] identifying the patient and procedure. Next, a 26-Japanese continuous flow resectoscope with a visual obturator [...] Lumenis Versacut significantly increased morcellation time. A 22-Japanese, 3-way catheter was advanced into the bladder [...] Prostate SURGICAL PATHOLOGY Reece Crews MD 05/09/2021 6279 Disposition: PACU - stable IMMEDIATE POST-OPERATIVE PLAN: - Admit overnight on continuous bladder irrigation - Trial of void on post-operative day 1. Patient performed straight catheterizat ion pre-operatively and may not pass TO Aki Astorga MD documented in this encounter Miscellaneous Notes * Care Plan - Minnie Reyes RN - 05/10/2021 12:49 PM CDT Problem: Infection, Risk of, Urinary Catheter-Associated Urinary Tract Infection Goal: Absence of urinary catheter-associated infection Outcome: Goal Achieved Problem: Discharge Planning Goal: Knowledge regarding plan of care Outcome: Goal Achieved documented in this encounter Plan of Treatment Order Schedule Name Type Priority Associated Diag noses Ordered: 05/10/2021 AMB REFERRAL TO [facility] Outpatient Routine Urinary retention FLOOR REHAB Referral Stage 4 chronic kid morena disease (HCC) BPH with obstruction/lower urinary tract symptoms documented as of this encounter Procedures Comments [...] (L) >60 mL/min [facility] Comment: [place] The eGFR is not validated f or use in drug dosing adjustments. Continue to use estimated creatinine clearance per dosing reference text. Please contact the Clinical Pharmacist for questions. eGFR 30 (L) >60 mL/min [facility] [place] Comment: The eGFR is not validated for use in drug dosing adjustments. Continue to use estimated creatinine clearance per dosing reference text. Please contact the Clinical Pharmacist for questions. Specimen Blood Performing Organization Address City/State/ZIP Code P faiza Number MAIN LAB [address] [place] [address] * BASIC METABOLIC PANEL (05/10/2021 3:26 AM [...] (L) >60 mL/min [facility] Comment: [place] The eGFR is not validated f or use in drug dosing adjustments. Continue to use estimated creatinine clearance per dosing reference text. Please contact the Clinical Pharmacist for questions. eGFR 28 (L) >60 mL/min [facility] [place] Comment: The eGFR is not validated for use in drug dosing adjustments. Continue to use estimated creatinine clearance per dosing reference text. Please contact the Clinical Pharmacist for questions. Specimen Performing Organization Address City/[facility] Code P faiza Number [facility] [address] [place] [address] * CBC AND DIFF (05/10/2021 3:26 AM [...] P faiza Number [facility] [address] [place] [address] * SURGICAL PATHOLOGY (05/09/2021 1:23 PM CDT) PATHOLOGY [facility] [email or web address] Department of Pathology and Laboratory Medicine [address] [place] [address] Surgical Pathology Office: [phone] SURGICAL PATHOLOGY REPORT NAME: RAIMUNDO AYALA SURG PATH #: [id number] MR #: [id number] SPECIMEN CLASS: SR BILLING #: [id number] ALT ID #: LOCATION: [facility] DATE OF PROCEDURE: 05/09/2021 AGE: 81 SEX: [...] support the above diagnosis. Pursuant to the Teacher Of The Visually Impaired Program at the [facility] Pathology Department, selected slides from this case have been concurrently reviewed by Dr. Love Sliva who agrees with the final diagnosis. Attestation: [...] A1-A25- entire specimen. (mpt) mt/05/09/2021 Specimen Tissue specimen (specimen) - Prostate Performing Organization Address City/[facility]/ZIP Code P faiza Number MAIN LAB [address] [place] [address] * PROSTATIC SPECIFIC ANTIGEN-PSA (05/09/2021 11:44 AM CDT) Prostatic 18.53 (H) <6.01 NG/ML MAIN LAB Specific Comment: Antigen REFERENCE RANGES AGE PSA VALUE <50 <=1.5 50-54 <=2.0 55-59 <=3.0 60-69 <=4.0 70+ <=6.0 Specimen Blood Performing Organization Address City/[facility] P faiza Number MAIN LAB [address] [place] [address] * HEMATOCRIT (05/09/2021 11:44 AM CDT) Hematocrit 33.1 (L) 40 - 50 % MAIN LAB Specimen Blood Performing Organization Address City/[facility] P faiza Number MAIN LAB [address] [place] [address] * HEMOGLOBIN (05/09/2021 11:44 AM CDT) Hemoglobin 10.2 (L) 13.5 - 16.5 GM/DL MAIN LAB Specimen Blood Performing Organization Address [facility] P faiza Number MAIN LAB [address] [place] [address] * TELEMETRY STRIPS-SCAN (05/09/2021 12:00 AM CDT) Narrative 05/09/2021 12:00 AM CDT Ordered by an unspecified provider. 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 and other lower urinary tract symptoms (LUTS) Urinary retention Retention of urine, unspecified Stage 4 chronic kidney disease (HCC) Urinary retention Retention of urine, unspecified documented [...] 1130, Until Sun05/10/21 at 1555, Pre-Op 1715 (Due)214 (Given - New Bag - Provid er: [...] documented in this encounter Additional Health Concerns Noted Time Assessment 05/10/2021 8:32 AM CDT A fall risk assessment has been complet ed for the patient documented as of this encounter Care Teams Start Date End Date Lineman Service Or Work Dispatcher Relationship Specialty 11/15/20 Rupal Alexander MD PCP - General [address] [id number] documented as of this encounter
--- OUTSIDE RECORDS SUMMARY | 2021-06-27 11:39 | XMS REPORT | Clinical Summary ---
Author Author [facility] Organization [facility] Address Unknown Phone Unavailable Care Team Providers Care Car Supervisor Name Role Phone Rupal Alexander MD PCP Source Comments Some departments are not documenting in the electronic medical record. If you d o not see the information that you expected, contact Release of Information in [facility] Information Management department at [phone] for further assistan ce in locating additional records.[facility] Allergies Comments Active Allergy Reactions Severity Noted Date Venom-Honey Bee SYNCOPE High 04/18/2021 Medications End Date Status Medication Sig Dispensed Refills Start Date Active acetaminophen (TYLENOL) Take two 0 325 mg tablet tablets by 1 mouth every 6 hours as needed. Active cefdinir (OMNICEF) 300 mg Take one 20 capsule 0 capsule capsule by 1 mouth every 12 hours. 06/22/2021 Discontinued bacitracin 500 unit/g Apply 0 05/10/20 2 topical ointment topically to 1 affected area as Needed (Catheter irritation/vincent brication). 06/22/2021 Discontinued senna/docusate Take one 90 tablet 0 (SENOKOT-S) 8.6/50 mg tablet by 1 tablet mouth daily. Active Problems Problem Noted Date Stage 4 chronic kidney disease 05/10/2021 BPH with obstruction/lower urinary tract symptoms Urinary retention 11/15/2020 Last Assessment & Plan: Formatting of this note might be differ ent from the original. 80-year-old presents to clinic for penny tional evaluation of chronic urinary retention and consideration for additio nal interventions. Patient reports he had previously been seen by 2 [facility] e physicians for evaluation and was instructed [...] physic al records to be sent from [facility] in [place] to our office. Some records are available on care everywhere at this time but were unable to be accessed. Encounters Care Team Description Date Type Specialty Reece Crews MD Benign prostatic hyperplasia, unspecifie d whether lower urinary tract symptoms present (Primary Dx); Urinary retention 06/22/2021 Office Visit Urology 06/22/2021 Travel Reece Crews MD Research 06/21/2021 Telephone Urology Reece Crews MD LASER ENUCLEATION PROSTATE WITH MORCELLA TION - COMPLETE 05/09/2021 Surgery Rustam Rangel DO Vance, Amy, SRNA 05/09/2021 Anesthesia Event Reece Crews MD [...] performed by Reece Crews M D at [facility] OR Medical History Medical History Date Comments [...] Recorded COVID-19 Exposure Response 06/22/2021 10:48 AM ED TEACHER In the last month, have you been in contact with No / Unsure someone who was confirmed or suspected to have Coronavirus / COVID-19? 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 Procedure Name Priority Date/Time Associated Diag nosis CULTURE-URINE Routine 06/22/2021 Urinary retenti on W/SENSITIVITY 12:20 PM ED TEACHER Benign prostatic hyperplasia, unspecified whether lower urinary tract symptoms present HC BASIC METABOLIC PANEL Routine 06/22/2021 Urina ry retention 11:47 AM ED TEACHER Benign prostatic hyperplasia, unspecified whether lower urinary tract symptoms present HC CBC,AUTOMATED Routine 06/22/2021 Urinary reten tion 11:47 AM ED TEACHER Benign prostatic hyperplasia, unspecified whether lower urinary tract symptoms present URINALYSIS, MICROSCOPIC 06/22/2021 Benign prosta tic 11:20 AM ED TEACHER hyperplasia, unspecified whether lower urinary tract symptoms present Urinary retention HC URINALYSIS, AUTO W 06/22/2021 Benign prostati c MICRO 11:20 AM ED TEACHER hyperplasia, unspec ified whether lower urinary tract symptoms present Urinary retention BASIC METABOLIC PANEL Routine 05/10/2021 10:05 AM [...] CDT from Last 3 Months Results * CULTURE-URINE W/SENSITIVITY (06/22/2021 12:20 PM ED TEACHER) Battery Name URINE CULTURE [facility] Report Status FINAL 06/23/2021 [facility] Specimen URINE MIDSTREAM [facility] Description Special No special requests [facility] Requests Culture <100,000 CFU/ml [facility] Urogenital and/or skin microbiota Specimen Urine Performing Organization Address City/[facility] P faiza Number [facility] [address] [place] [address] * CBC (06/22/2021 11:47 AM ED TEACHER) Pathologist [facility] White Blood 11.2 (H) 4.5 - 11.0 [...] LAB Specimen Blood (substance) Performing Organization Address [facility] P faiza Number [facility] [address] [place] [address] * BASIC METABOLIC PANEL (06/22/2021 11:47 AM ED TEACHER) Only the most recent of 3 results within the time period is included. Pathologist [facility] Sodium 137 137 - 147 MMOL/L [facility] [...] (L) >60 mL/min [facility] Comment: [place] The eGFR is not validated f or use in drug dosing adjustments. Continue to use estimated creatinine clearance per dosing reference text. Please contact the Clinical Pharmacist for questions. eGFR 36 (L) >60 mL/min [facility] [place] Comment: The eGFR is not validated for use in drug dosing adjustments. Continue to use estimated creatinine clearance per dosing reference text. Please contact the Clinical Pharmacist for questions. Specimen Blood (substance) Performing Organization Address [facility] P faiza Number MAIN LAB [address] [place] [address] * URINALYSIS, MICROSCOPIC (06/22/2021 11:20 AM ED TEACHER) WBCs,UA PACKED 0 - 2 /HPF [facility] RBCs,UA 20-50 0 - 3 /HPF [facility] WBC Clumps PRESENT [facility] Squamous 0-2 0 - 5 [facility] Epithelial Cells Specimen Performing Organization Address [facility] P faiza Number [facility] [address] [place] [address] * URINALYSIS DIPSTICK (06/22/2021 11:20 AM ED TEACHER) Color,UA YELLOW [facility] Turbidity,UA 1+ (A) CLEAR-CLEAR [facility] Specific 1.020Comment: NOTE NEW 1.005 - 1.030 [facility] [place]-Urine REFERENCE RANGES pH,UA 5.0 5.0 - 8.0 [...] LAB Acid, UA Specimen Performing Organization Address [facility] P faiza Number [facility] [address] [place] [address] * CBC AND DIFF (05/10/2021 3:26 AM [...] P faiza Number [facility] [address] [place] [address] * SURGICAL PATHOLOGY (05/09/2021 1:23 PM CDT) PATHOLOGY [facility] [email or web address] Department of Pathology and Laboratory Medicine [address] [place] [address] Surgical Pathology Office: [phone] SURGICAL PATHOLOGY REPORT NAME: RAIMUNDO AYALA Elfego SURG PATH #: [id number] MR #: [id number] SPECIMEN CLASS: SR BILLING #: [id number] ALT ID #: LOCATION: 8 DATE OF [...] support the above diagnosis. Pursuant to the Product Safety Associate Program at the [facility] Pathology Department, selected slides from this case [...] specimen (specimen) - Prostate Performing Organization Address City/[facility]/ZIP Code P faiza Number MAIN LAB [address] [place] [address] * HEMOGLOBIN (05/09/2021 11:44 AM CDT) Hemoglobin 10.2 (L) 13.5 - 16.5 GM/DL MAIN LAB Specimen Blood Performing Organization Address City/[facility] P faiza Number MAIN LAB [address] [place] [address] * HEMATOCRIT (05/09/2021 11:44 AM CDT) Hematocrit 33.1 (L) 40 - 50 % MAIN LAB Specimen Blood Performing Organization Address City/[facility] P faiza Number MAIN LAB [address] [place] [address] * PROSTATIC SPECIFIC ANTIGEN-PSA (05/09/2021 11:44 AM CDT) Prostatic 18.53 (H) <6.01 NG/ML MAIN LAB Specific Comment: Antigen REFERENCE RANGES AGE PSA VALUE <50 <=1.5 50-54 <=2.0 55-59 <=3.0 60-69 <=4.0 70+ <=6.0 Specimen Blood Performing Organization Address City/[facility] P faiza Number [facility] [address] [place] [address] * TELEMETRY STRIPS-SCAN (05/09/2021 12:00 AM CDT) Narrative 05/09/2021 12:00 AM CDT Ordered by an unspecified provider. from Last 3 Months Insurance Type Payer Benefit Subscriber ID Effective Phone Address Plan / Dates Group Medicare AETNA MEDICARE AETNA [id number] 2019-P [phone] [address] [place] [id number] PPO [place]OU[place]OU DAVIS [phone] Advance Directives Patient Child Day Care Teacher Explanation Type Date Recorded Advance Directive/DPOA Date Inactivated Comments Code Status Date Activated 05/10/2021 4:00 PM Full Code 05/09/2021 6:29 PM Provider has discussed Code Status No, discussion no t w/Patient or Family? necessary based on Dx Care Teams Start Date End Date Car Supervisor Relationship Specialty 11/15/20 Rupal Alexander MD PCP - [address] [phone]
--- OUTSIDE RECORDS SUMMARY | 2021-06-27 11:39 | XMS REPORT | Encounter Summary ---
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 Reece Crews MD [address] Ortho/Med Pavilion Lvl [address] [place] [address] Referral ID Status Reason Start Date Expiration Visits Vi sits Date Requested Authorized [id number] New Request Specialty Services 05/10/2021 05/10/2022 1 1 Required Comments *Bessie Aguero Preferred Physical Therapy [address] [place] [address] p [facility] THERAPY [address] [place], [place] [id number] *Located off of [facility] F[facility] [address] [facility] [address] [place] [address] [facility] PHYSICAL THERAPY [address] [place], [place] [facility] [address] [facility] [address] [place], [place] [facility] P[facility] [address] [facility] [address] [place], [place] [id number] [facility] [address] [place], [place] [facility] PHYSICAL THERAPY [address] [place], [place] [facility] TH[facility] [address] [place] [address] [facility] [address] [facility] [address] [place] [address] [facility] [address] [place], [place] [facility] [address] [place], [place] [facility] [address] [place], [place] [address] [place] [facility] [address] [place] OUT PATIENT @ [facility] [address] [place], [place] [phone] [facility] [address] [place] [address] PREFERRED PHYSICAL THERAPY LOCATIONS IN [place], [place], [place], [facility], [place], [place] AND [place] [phone] [facility] [address] [place], [place] [facility] [address] [facility] [address] [facility] [address] [place], [place] [facility] [address] [place], [place] [facility] [address] [place] [facility] [address] [place], [place] [facility] [address] [place], [place] [facility] Therapy Services [address], [place] [address] [phone] Reason for Visit * Auth/Cert Diagnoses / Procedures Referred By Contact Referred To Conta ct Specialty Diagnoses Urinary retention Urinary retention [R33.9] Procedures [place] LASER ENUCLEATION PROSTATE W/MORCELLATION LASER ENUCLEATION PROSTATE WITH MORCELLATION - COMPLETE Referral ID Status Reason Start Date Expiration Visits Vi sits Date Requested Authorized [id number] 1 1 Encounter Details Care Team Description Date Type Department Reece Crews MD [address] Ortho/Med Pavilion Lvl [address] [place] [address] BPH with obstruction/lower urinary tract symptoms 05/09/2021 Hospital Patient Care Unit H C8: - Encounter [facility] 05/10/2021 Care [address] [facility] 8 [place] [address] Social History Date Tobacco Use [...] for the patient. LOIS Xiong Integrated Nurse Exchange Clerk On Voalte *[phone] documented in this encounter Medications at Time [...] 05/09/21700 - 05/10/2169905/10/21700 - 05/11/21 07 Shift 8425-5326 8764-7701 24 Hour Total 8336-5220 9118-7618 24 Hour Total INTAKE I.V.(mL/kg/hr) 1200(1.3) 1200 Other 600 600 Shift Total(mL/kg) 1800(24) 1800(24) OUTPUT Urine(mL/kg/hr) 100(0.1) 6200 6300 Urine 0 0 Urine Output (ml) (Indwelling Urinary Catheter 05/09/21 1445 22 FR) 100 6200 6 300 Other 705 705 Estimated Blood Loss 5 5 Irrigant/Flush Out (ml) (Indwelling Urinary Catheter 05/09/21 1445 22 FR) 700 700 Shift Total(mL/kg) 805(10.7) 6200(82.6) 7005(93.3) NET 356 -6918 -5426 Weight (kg) 75.1 75.1 75.1 75.1 75.1 [...] Dr. Lorrie Astorga MD Urology Resident Pager: [phone] __ HPI: Raimundo Ayala is a 81 [...] Social Gatherings with Friends and Family: Attends [employer]-Is[employer] Services: Active Member of Clubs or Organizations: [...] Versacut Morcellator ANESTHESIA: General DRAINS: 1. 22 Tongan 3-way catheter with 60cc in balloon IRRIGATION [...] identifying the patient and procedure. Next, a 26-Tongan continuous flow resectoscope with a visual obturator [...] with a long nephro scope. Using the [employer] Versacut morcellator, prostate adenoma was morcellated . There were four prostatic nodules that were unable to be morcellated and were removed via basket. All tissues was sent to Pathology. No bladder injury was albert tained during morcellation. The morcellator was removed. Use of the Lumen[employer] Versacut significantly increased morcellation time. A 22-Tongan, 3-way catheter was advanced into the bladder [...] (L) >60 mL/min [facility] Comment: Italian The eGFR is not validated f or use in drug dosing adjustments. Continue to use estimated creatinine clearance per dosing reference text. Please contact the Clinical Pharmacist for questions. eGFR 30 (L) >60 mL/min [facility] Italian Comment: The eGFR is not validated for use in drug dosing adjustments. Continue to use estimated creatinine clearance per dosing reference text. Please contact the Clinical Pharmacist for questions. Specimen Blood Performing Organization Address City/State/ZIP Code P faiza Number [facility] [address] [place] [address] * BASIC METABOLIC PANEL (05/10/2021 3:26 AM [...] (L) >60 mL/min [facility] Comment: [place] The eGFR is not validated f or use in drug dosing adjustments. Continue to use estimated creatinine clearance per dosing reference text. Please contact the Clinical Pharmacist for questions. eGFR 28 (L) >60 mL/min [facility] Italian Comment: The eGFR is not validated for use in drug dosing adjustments. Continue to use estimated creatinine clearance per dosing reference text. Please contact the Clinical Pharmacist for questions. Specimen Performing Organization Address City/[facility]/ZIP Code P faiza Number [facility] [address] [place] [address] * CBC AND DIFF (05/10/2021 3:26 AM [...] P faiza Number [facility] [address] [place] [address] * SURGICAL PATHOLOGY (05/09/2021 1:23 PM CDT) PATHOLOGY [facility] [email or web address] Department of Pathology and Laboratory Medicine [address] [place] [address] Surgical Pathology Office: [phone] SURGICAL PATHOLOGY REPORT NAME: RAIMUNDO AYALA Elfego SURG PATH #: [id number] MR #: [id number] SPECIMEN CLASS: SR BILLING #: [id number] ALT ID #: LOCATION: HC8 DATE OF PROCEDURE: 05/09/2021 AGE: 81 SEX: M DATE RECEIVED: 05/09/2021 : 1940 TIME RECEIVED: 17:04 PHYSICIAN: REECE CREWS MD DATE OF REPORT: 05/11/2021 COPY TO: DATE OF PRINTIN05/11/2021 ############################## ############################## ############ Final Diagnosis: A. 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 Background prostatic tissue with glandular and stromal hyperplasia. Comment: Immunohistochemical stains for basal cell markers and P504s (PIN-4) performed on block A2 support the above diagnosis. Pursuant to the Supervisor Drying And Winding Program at the [facility] Pathology Department, selected slides from this [...] specimen (specimen) - Prostate Performing Organization Address City/[facility]/ZIP Code P faiza Number MAIN LAB [address] [place] [address] * PROSTATIC SPECIFIC ANTIGEN-PSA (05/09/2021 11:44 AM CDT) Prostatic 18.53 (H) <6.01 NG/ML MAIN LAB Specific Comment: Antigen REFERENCE RANGES AGE PSA VALUE <50 <=1.5 50-54 <=2.0 55-59 <=3.0 60-69 <=4.0 70+ <=6.0 Specimen Blood Performing Organization Address City/State/ZIP Code P faiza Number MAIN LAB [address] [place] [address] * HEMATOCRIT (05/09/2021 11:44 AM CDT) Hematocrit 33.1 (L) 40 - 50 % [facility] Specimen Blood Performing Organization Address City/State/ZIP Code P faiza Number MAIN LAB [address] [place] [address] * HEMOGLOBIN (05/09/2021 11:44 AM CDT) Hemoglobin 10.2 (L) 13.5 - 16.5 GM/DL MAIN LAB Specimen Blood Performing Organization Address City/[facility]/ZIP Code P faiza Number MAIN LAB [address] [place] [address] * TELEMETRY STRIPS-SCAN (05/09/2021 12:00 AM CDT) [...] sip of water immediately upon arrival to shady side (>30 minutes prior to scheduled surgery time). [...] encounter Care Teams Start Date End Date Warping Machine Operator Relationship Specialty 11/15/20 Rupal Alexander MD PCP - General [address] [address] documented as of this encounter
--- OUTSIDE RECORDS SUMMARY | 2021-06-27 11:39 | XMS REPORT | Encounter Summary ---
Author Author [facility] Organization [facility] Address Unknown Phone Unavailable Care Team Providers Care Liner Machine Operator Name Role Phone Rupal Alexander MD PCP Reason for Visit * Auth/Cert Diagnoses / Procedures Referred By Contact Referred To Conta ct Specialty Diagnoses Urinary retention Urinary retention [R33.9] Procedures MA LASER ENUCLEATION PROSTATE W/MORCELLATION LASER ENUCLEATION PROSTATE WITH MORCELLATION - COMPLETE Referral ID Status Reason Start Date Expiration Visits Vi sits Date Requested Authorized [id number] 1 1 Encounter Details Care Team Description Date Type Department Rustam Rangel DO [address] [place] [address] Richelle Ghosh SRNA 05/09/2021 Anesthesia Operating Room: [address] Level 2 [place] [id number] Anesthesia Record Responsible Anesthesiologist Anesthesia Start Time [...] Details Placement Indwelling 05/09/21; 1445; Unit (Comment) ([facility] OR 05/09/21 1445 by Milan, Urinary 1); Urology; 22 FR; 3-way (ABILIO Zuniga RN Catheter BLADDER IRRIGATION) 05/10/21 1250 by Minnie Reyes RN Peripheral 05/09/21; RN; R; Wrist; 20 G; 1; Therap y 05/09/21 0000 by Te, IV completed; 05/10/21; 1250 ANNE Hernandez 05/10/21 1250 by Minnie Reyes RN Peripheral 05/09/21; 1145; RN; R; Wrist; 20 G; 1; 05/09/21 1145 by Marisol, IV Therapy completed; 05/10/21; 1250 Sandip panda [...] Notes * Anesthesia Postprocedure Evaluation - Radha Crocker DO - 05/09/2021 5:42 PM CDT Post-Anesthesia Evaluation Name: Abdulaziz Vasquez : 1940 Age: 81 y.o. S ex: male Procedure Information Anesthesia Start Date/Time: 05/09/21 1237 Procedure: LASER ENUCLEATION PROSTATE WITH MORCELLATION - COMPLETE (N/A Penis) - 1.5 HRS, 120 W laser, morcellator [id number] MORCELLATION START: 1449 MORCELLATION STOP: Location: MAIN [...] 05/09/2021 * Anesthesia Preprocedure Evaluation - Rustam Rangel, DO - 05/08/2021 12:34 PM CDT Anesthesia Pre-Procedure Evaluation Name: Abdulaziz Vasquez : 1940 Age: 81 y.o. S ex: male Procedure Info: Procedure Information Date/Time: 05/09/21 1345 Procedure: LASER ENUCLEATION PROSTATE WITH MORCELLATION - COMPLETE (N/A ) - 1.5 HRS, 120 W laser, morcellator [id number] Location: MAIN OR 01 / Main OR/Periop Surgeons: Sarkis Andrew MD Physical Assessment [...] METS Beta Kathryn therapy: No No past RI, No angina Hyperlipidemia GI/Hepatic/Renal GERD, well controlled [...] consented Plan discussed with: anesthesiologist, surgeon/proceduralist and HANDLE ASSEMBLER. documented in this encounter Plan of Treatment [...] encounter Additional Health Concerns Noted Time Assessment 05/09/2021 9:42 PM CDT A fall risk assessment has been complet ed for the patient documented as of this encounter Care Teams Start Date End Date Liner Machine Operator Relationship Specialty 11/15/20 Rupal Alexander MD PCP - General [address] [id number] documented as of this encounter
== END 2021-06-25 20:35 | disposition home or self-care (01) ==
LOC: EDUNIT# 17:43 → ER FS 17:45
DX: K59.00 Constipation, unspecified (principal)
CPT/HCPCS: 74022

== ENCOUNTER → 2021-07-04 | Outpatient (CLI) | payer MEDICARE | LOC: LABNPT 15:25 | PROVIDERS: ATTEND Family Medicine | DX: N39.0 Urinary tract infection, site not specified (principal) | CPT/HCPCS: 87077; 87088 ==

== ENCOUNTER 2021-07-08 10:15 | Emergency (ER) | payer MEDICARE ==
[~2021-07-08] VITALS: Ht 160 cm; Wt 63.0 kg
--- OUTSIDE RECORDS SUMMARY | 2021-07-08 10:19 | XMS REPORT | Clinical Summary ---
Author Author [facility] Organization [facility] Address Unknown Phone Unavailable Care Team Providers Care Differential Repairer Name Role Phone Rupal Alexander MD PCP Source Comments Some departments are not documenting in the electronic medical record. If you d o not see the information that you expected, contact Release of Information in [facility] Information Management department at [phone] for further assistan ce in locating additional records.[facility] Allergies Comments Active Allergy Reactions [...] to 1 affected area as Needed (Catheter irritation/vinecnt brication). 06/22/2021 Discontinued senna/docusate Take one 90 [...] he had previously been seen by 2 [facility] e physicians for evaluation and was instructed [...] physic al records to [facility] [place] to our office. Some records are available [...] performed by Reece Crews M D at [facility] OR Medical History Medical History Date [...] Recorded COVID-19 Exposure Response 06/22/2021 10:48 AM COSTUME CUTTER In the last month, have you been in contact with No / Unsure someone who was confirmed or suspected to have Coronavirus / COVID-19? Last Filed Vital Signs Reading Time Taken Comments Vital Sign 125/66 06/22/2021 11:59 AM COSTUME CUTTER Blood Pressure 101 06/22/2021 11:59 AM COSTUME CUTTER Pulse 36.7 C (98 F) 06/22/2021 11:59 AM COSTUME CUTTER Temperature - - Respiratory Rate 93% 05/10/2021 11:00 AM CDT Oxygen Saturation - - Inhaled Oxygen Concentration 67.1 kg (148 lb) 06/22/2021 11:59 AM COSTUME CUTTER Weight 185.4 cm (6' 1") 06/22/2021 11:59 AM COSTUME CUTTER Height 19.53 06/22/2021 11:59 AM COSTUME CUTTER Body Mass Index Plan of Treatment Health [...] (05/10/2021 Yes Eli, 9:35 AM CDT) ANNE Hammretail product demo specialist Comments Procedure Name Priority Date/Time Associated Diag nosis CULTURE-URINE Routine 06/22/2021 Urinary retenti on W/SENSITIVITY 12:20 PM COSTUME CUTTER Benign prostatic hyperplasia, unspecified whether lower urinary tract symptoms present HC BASIC METABOLIC PANEL Routine 06/22/2021 Urina ry retention 11:47 AM COSTUME CUTTER Benign prostatic hyperplasia, unspecified whether lower urinary tract symptoms present HC CBC,AUTOMATED Routine 06/22/2021 Urinary reten tion 11:47 AM COSTUME CUTTER Benign prostatic hyperplasia, unspecified whether lower urinary tract symptoms present URINALYSIS, MICROSCOPIC 06/22/2021 Benign prosta tic 11:20 AM COSTUME CUTTER hyperplasia, unspecified whether lower urinary tract symptoms present Urinary retention HC URINALYSIS, AUTO W 06/22/2021 Benign prostati c MICRO 11:20 AM COSTUME CUTTER hyperplasia, unspec ified whether lower urinary tract [...] Results * CULTURE-URINE W/SENSITIVITY (06/22/2021 12:20 PM COSTUME CUTTER) Battery Name URINE CULTURE [facility] Report Status FINAL 06/23/2021 [facility] Specimen URINE MIDSTREAM [facility] Description Special No special requests [facility] Requests Culture <100,000 CFU/ml [facility] Urogenital and/or skin microbiota Specimen Urine Performing Organization Address City/[facility] P faiza Number [facility] [address] [place] [address] * CBC (06/22/2021 11:47 AM COSTUME CUTTER) Pathologist [facility] White Blood 11.2 (H) 4.5 - 11.0 [...] LAB Specimen Blood (substance) Performing Organization Address [facility] P faiza Number [facility] [address] [place] [address] * BASIC METABOLIC PANEL (06/22/2021 11:47 AM COSTUME CUTTER) Only the most recent of 3 results within the time period is included. Pathologist [facility] Sodium 137 137 - 147 MMOL/L [facility] [...] (L) >60 mL/min [facility] Comment: Malaysian The eGFR is not validated f or use in drug dosing adjustments. Continue to use estimated creatinine clearance per dosing reference text. Please contact the Clinical Pharmacist for questions. eGFR 36 (L) >60 mL/min [facility] Malaysian Comment: The eGFR is not validated for use in drug dosing adjustments. Continue to use estimated creatinine clearance per dosing reference text. Please contact the Clinical Pharmacist for questions. Specimen Blood (substance) Performing Organization Address [facility] P faiza Number MAIN LAB [address] [place] [address] * URINALYSIS, MICROSCOPIC (06/22/2021 11:20 AM COSTUME CUTTER) WBCs,UA PACKED 0 - 2 /HPF [facility] RBCs,UA 20-50 0 - 3 /HPF [facility] WBC Clumps PRESENT [facility] Squamous 0-2 0 - 5 [facility] Epithelial Cells Specimen Performing Organization Address [facility] P faiza Number [facility] [address] [place] [address] * URINALYSIS DIPSTICK (06/22/2021 11:20 AM COSTUME CUTTER) Color,UA YELLOW [facility] Turbidity,UA 1+ (A) CLEAR-CLEAR [facility] Specific 1.020Comment: NOTE NEW 1.005 - 1.030 [facility] [place]-Urine REFERENCE RANGES pH,UA 5.0 5.0 - 8.0 [...] LAB Acid, UA Specimen Performing Organization Address [facility] P faiza Number [facility] [address] [place] [address] * CBC AND DIFF (05/10/2021 3:26 AM [...] P faiza Number [facility] [address] [place] [address] * SURGICAL PATHOLOGY (05/09/2021 1:23 PM CDT) PATHOLOGY [facility] [email or web address] Department of Pathology and Laboratory Medicine [address] [place] [address] Surgical Pathology Office: [phone] SURGICAL PATHOLOGY REPORT NAME: RAIMUNDO AYALA Elfego SURG PATH #: [id number] MR #: [id number] SPECIMEN CLASS: SR BILLING #: [id number] ALT ID #: LOCATION: 8 DATE OF PROCEDURE: 05/09/2021 AGE: 81 SEX: M DATE RECEIVED: 05/09/2021 : 1940 TIME RECEIVED: 17:04 PHYSICIAN: REECE RCEWS MD DATE OF REPORT: 05/11/2021 COPY TO: [...] support the above diagnosis. Pursuant to the Diamond Finishing Supervisor Program at the [facility] Pathology Department, selected slides from this case [...] Code P faiza Number MAIN LAB [address] [place] [address] * HEMOGLOBIN (05/09/2021 11:44 AM CDT) Hemoglobin 10.2 (L) 13.5 - 16.5 GM/DL MAIN LAB Specimen Blood Performing Organization Address City/[facility] P faiza Number MAIN LAB [address] [place] [address] * HEMATOCRIT (05/09/2021 11:44 AM CDT) Hematocrit 33.1 (L) 40 - 50 % MAIN LAB Specimen Blood Performing Organization Address City/[facility] P faiza Number MAIN LAB [address] [place] [address] * PROSTATIC SPECIFIC ANTIGEN-PSA (05/09/2021 11:44 AM CDT) Prostatic 18.53 (H) <6.01 NG/ML MAIN LAB Specific Comment: Antigen REFERENCE RANGES AGE PSA VALUE <50 <=1.5 50-54 <=2.0 55-59 <=3.0 60-69 <=4.0 70+ <=6.0 Specimen Blood Performing Organization Address City/[facility] P faiza Number [facility] [address] [place] [address] * TELEMETRY STRIPS-SCAN (05/09/2021 12:00 AM CDT) Narrative 05/09/2021 12:00 AM CDT Ordered by an unspecified provider. from Last 3 Months Insurance Type Payer Benefit Subscriber ID Effective Phone Address Plan / Dates Group Medicare AETNA MEDICARE AETNA [id number] 2019-P [phone] [address] [id number] PPO [place]OU[place]OU DAV[place] [phone] Advance Directives Patient Automatic Thread Winder Explanation Type Date Recorded Advance Directive/DPOA Date Inactivated Comments Code Status Date Activated 05/10/2021 4:00 PM Full Code 05/09/2021 6:29 PM Provider has discussed Code Status No, discussion no t w/Patient or Family? necessary based on Dx Care Teams Start Date End Date Differential Repairer Relationship Specialty 11/15/20 Rupal Alexander MD PCP - [address] [id number]
--- OUTSIDE RECORDS SUMMARY | 2021-07-08 10:19 | XMS REPORT | Encounter Summary ---
Author Author [facility] Organization [facility] Address Unknown Phone Unavailable Care Team Providers Care Rn Disease Management Name Role Phone Rupal Alexander MD PCP Reason for Visit * Reason Onset Date Comments Research 06/21/2021 Encounter Details Care Team Description Date Type Department Sarkis Andrew MD [address] Ortho/Med Pavilion L[address] [place] [address] Research 06/21/2021 Telephone Urology: Abel m[place], Medical Pavilion [address], [address] [place] [address] Social History Date Tobacco Use [...] encounter Miscellaneous Notes * Telephone Encounter - Nickie Jessica, RN - 06/21/2021 4:42 PM SQL DEVELOPER DBA Phoned patient to discuss symptoms. Patient reports when he went to [facility] he was given and IV with [...] marie. Indu did inqui re if Dr. Andrew would admit patient or told me that he was willing to go to [facility] for rehab. Informed daughter it was above my scope to determine these an swers and would be questions that would have to be evaluated [facility]. Patient and daughter v/u. Requested if they had an y records from hospital visit to bring with them, she initially stated they were given nothing but reports she will look. Informed her records had been requeste d. DEVELOPER DBA * Telephone Encounter - Aleksander Maki - 06/21/2021 3:04 PM SQL DEVELOPER DBA Procedure Note Study Title: SOLTIVE Laser Enucleation for Treatment of Benign Prostatic Hype rplasia: A Solder Making Laborer Study in the [facility]: [id number] Consent Version Date: 12-02-2020 to 12-01-2021 NAME: [...] He was seen in the ER in [place], [place] and they gave h im oral [...] plan. The subject was advised to [place] medical attention if his symptoms progress or if he notices any signs of inf ection. The subject was also instructed to reach out if he has any more concerns . We will r/s his 6wk post-op appt at a later date. DEVELOPER DBA documented in this encounter Plan of Treatment [...] encounter Care Teams Start Date End Date Rn Disease Management Relationship Specialty 11/15/20 Ruapl Alexander MD PCP - General [address] [address] documented as of this encounter
--- OUTSIDE RECORDS SUMMARY | 2021-07-08 10:19 | XMS REPORT | Encounter Summary ---
Author Author [facility] Organization [facility] Address Unknown Phone Unavailable Care Team Providers Care Student Education Specialist Name Role Phone Rupal Alexander MD [...] Recorded COVID-19 Exposure Response 06/22/2021 10:48 AM FOURDRINIER MACHINE TENDER In the last month, have you been [...] track (05/10/2021 Yes Eli, 9:35 AM CDT) NANE Hamm documented as of this encounter Visit Diagnoses Not on filedocumented in this encounter Additional Health Concerns Noted Time Assessment 06/22/2021 11:58 AM FOURDRINIER MACHINE TENDER A fall risk assessment has been complet ed for the patient documented as of this encounter Care Teams Start Date End Date Student Education Specialist Relationship Specialty 11/15/20 Rupal Alexander MD PCP - General [address] [address] documented as of this encounter
--- OUTSIDE RECORDS SUMMARY | 2021-07-08 10:19 | XMS REPORT | Encounter Summary ---
Author Author [facility] Organization [facility] Address Unknown Phone Unavailable Care Team Providers Care Mva Operator Name Role Phone Rupal Alexander MD PCP Reason for Visit * Reason Comments Other Encounter Details Care Team Description Date Type Department Sarkis Andrew MD [address] [facility] [address] [place] [address] Benign prostatic hyperplasia, unspecifie d whether lower urinary tract symptoms present (Primary Dx); Urinary retention 06/22/2021 Office Visit Urology: [facility] [address], [place] [address] Social History Date Tobacco Use [...] Recorded COVID-19 Exposure Response 06/22/2021 10:48 AM DIRECTOR CORPORATE In the last month, have you been in contact with No / Unsure someone who was confirmed or suspected to have Coronavirus / COVID-19? documented as of this encounter Last Filed Vital Signs Reading Time Taken Comments Vital Sign 125/66 06/22/2021 11:59 AM DIRECTOR CORPORATE Blood Pressure 101 06/22/2021 11:59 AM DIRECTOR CORPORATE Pulse 36.7 C (98 F) 06/22/2021 11:59 AM DIRECTOR CORPORATE Temperature - - Respiratory Rate - - Oxygen Saturation - - Inhaled Oxygen Concentration 67.1 kg (148 lb) 06/22/2021 11:59 AM DIRECTOR CORPORATE Weight 185.4 cm (6' 1") 06/22/2021 11:59 AM DIRECTOR CORPORATE Height 19.53 06/22/2021 11:59 AM DIRECTOR CORPORATE Body Mass Index documented in this encounter [...] Sarkis Andrew MD - 06/22/2021 11:45 AM DIRECTOR CORPORATE Date of Service: 06/22/2021 Subjective: Abdulaziz Vasquez [...] heartburn. Last BM yesterday, loose. Seen in [place] ED 05/30. Given hydration. Urine culture positive, [...] PT at this time. RTC 6 weeks CTOR CORPORATE * Jessica Fu RN - 06/22/2021 11:45 AM DIRECTOR CORPORATE PVR=10mL. CTOR CORPORATE documented in this encounter Plan of Treatment [...] 06/22/2021 Urinary retenti on W/SENSITIVITY 12:20 PM DIRECTOR CORPORATE Benign prostatic hyperplasia, unspecified whether lower urinary tract symptoms present HC CBC,AUTOMATED Routine 06/22/2021 Urinary reten tion 11:47 AM DIRECTOR CORPORATE Benign prostatic hyperplasia, unspecified whether lower urinary tract symptoms present HC BASIC METABOLIC PANEL Routine 06/22/2021 Urina ry retention 11:47 AM DIRECTOR CORPORATE Benign prostatic hyperplasia, unspecified whether lower urinary tract symptoms present URINALYSIS, MICROSCOPIC 06/22/2021 Benign prosta tic 11:20 AM DIRECTOR CORPORATE hyperplasia, unspecified whether lower urinary tract symptoms present Urinary retention HC URINALYSIS, AUTO W 06/22/2021 Benign prostati c MICRO 11:20 AM DIRECTOR CORPORATE hyperplasia, unspec ified whether lower urinary tract symptoms present Urinary retention documented in this encounter Results * CULTURE-URINE W/SENSITIVITY (06/22/2021 12:20 PM DIRECTOR CORPORATE) Battery Name URINE CULTURE [facility] Report Status FINAL 06/23/2021 [facility] Specimen URINE MIDSTREAM [facility] Description Special No special requests [facility] Requests Culture <100,000 CFU/ml [facility] Urogenital and/or skin microbiota Specimen Urine Performing Organization Address City/State/ZIP Code P faiza Number [facility] [address] [place] [address] * CBC (06/22/2021 11:47 AM DIRECTOR CORPORATE) White Blood 11.2 (H) 4.5 - 11.0 [...] LAB Specimen Blood (substance) Performing Organization Address City/[facility]/ZIP Code P faiza Number [facility] [address] [place] [address] * BASIC METABOLIC PANEL (06/22/2021 11:47 AM DIRECTOR CORPORATE) Sodium 137 137 - 147 MMOL/L [facility] [...] (L) >60 mL/min [facility] Comment: [place] The eGFR is not validated f or use in drug dosing adjustments. Continue to use estimated creatinine clearance per dosing reference text. Please contact the Clinical Pharmacist for questions. eGFR 36 (L) >60 mL/min [facility] [place] Comment: The eGFR is not validated for use in drug dosing adjustments. Continue to use estimated creatinine clearance per dosing reference text. Please contact the Clinical Pharmacist for questions. Specimen Blood (substance) Performing Organization Address City/[facility]/ZIP [facility] P afiza Number [facility] [address] [place] [address] * URINALYSIS, MICROSCOPIC (06/22/2021 11:20 AM DIRECTOR CORPORATE) WBCs,UA PACKED 0 - 2 /HPF [facility] RBCs,UA 20-50 0 - 3 /HPF [facility] WBC Clumps PRESENT [facility] Squamous 0-2 0 - 5 [facility] Epithelial Cells Specimen Performing Organization Address City/[facility]/ZIP Code P faiza Number [facility] [address] [place] [address] * URINALYSIS DIPSTICK (06/22/2021 11:20 AM DIRECTOR CORPORATE) Color,UA YELLOW [facility] Turbidity,UA 1+ (A) CLEAR-CLEAR [facility] Specific 1.020Comment: NOTE NEW 1.005 - 1.030 [facility] [place]-Urine REFERENCE RANGES pH,UA 5.0 5.0 - 8.0 [...] faiza Number [facility] [address] [place] [address] documented in this encounter Visit Diagnoses Diagnosis [...] Concerns Noted Time Assessment 06/22/2021 11:58 AM DIRECTOR CORPORATE A fall risk assessment has been complet ed for the patient documented as of this encounter Care Teams Start Date End Date Mva Operator Relationship Specialty 11/15/20 Rupal Alexander MD PCP - [address] [id number] documented as of this encounter
--- NOTE | 2021-07-08 10:42 | ED Cough/URI ---
General Stated Complaint: COUGH Source: patient, family Exam Limitations: no limitations History of Present Illness Date Seen by Provider: Jul 08, 2021 Time Seen by Provider: 10:18 Initial Comments 81-year-old male with past medical history of CKD, BPH with recent prostatectomy, and recent weight loss coming in with his daughter due to cough and congestion. Symptoms have been ongoing for 3 days, are moderate, constant, and better with jowf-ocb-zpzjdee cough medicine. Of note, the patient also states for 2 months he has had severely enlarged lymph nodes in his neck, back, and abdomen. It is over this same time that he has lost 45 pounds without trying. He says he just does not have an appetite. Started mirtazapine roughly 5 days ago to try to help with this. Also was diagnosed with a UTI yesterday and has taken out 2 doses of Bactrim. Daughter stating most of these worsening symptoms started since he had his prostate removed on May 09. He is otherwise denying any chest pain, shortness of breath, abdominal pain, nausea, vomiting, diarrhea, fever, chills, focal weakness or numbness, or any other concerns. Of note, daughter says he did fall from weakness roughly a week ago. Allergies and Home Medications Allergies Coded Allergies: No Known Drug Allergies (Unverified , 08/05/20) Patient Home Medication List Home Medication List Reviewed: Yes Cefdinir (Cefdinir) 300 Mg Capsule, 300 MG PO BID, (Reported) Entered as Reported by: PEPE DOSS on 06/14/21 1208 Cefuroxime Axetil (Cefuroxime) 250 Mg Tablet, 250 MG PO BID Prescribed by: YOAV DON on 05/30/21 170 Cephalexin (Keflex) 500 Mg Capsule, 500 MG PO TID Prescribed by: CORI BARCENAS on 08/05/20 1604 Ondansetron (Ondansetron Odt) 4 Mg Tab.rapdis, 4 MG PO Q6H PRN for NAUSEA/VOMITING Prescribed by: YOAV DON on 05/30/21 1707 Review of Systems Review of Systems Constitutional: No chills, No fever EENTM: No blurred vision Respiratory: cough; No short of breath Cardiovascular: No chest pain Gastrointestinal: No abdominal pain; constipation Genitourinary: frequency Musculoskeletal: no symptoms reported Skin: no symptoms reported Psychiatric/Neurological: No Symptoms Reported Hematologic/Lymphatic: Other (swollen lymph nodes) Immunological/Allergic: no symptoms reported All Other Systems Reviewed Negative Unless Noted: Yes Past Nazzgpe-Khtgqj-Rkbmib Hx Patient Social History Tobacco Use?: No Substance use?: No Immunizations Up To Date First/Initial COVID19 Vaccinat: MAR 2021 Second COVID19 Vaccination Charles: APR 2021 Seasonal Allergies Seasonal Allergies: No Past Medical History Surgeries: Yes Tonsillectomy Respiratory: No Cardiac: No Neurological: No Genitourinary: Yes Prostate Problems Gastrointestinal: No Musculoskeletal: No Endocrine: No HEENT: No Cancer: No Psychosocial: No Integumentary: No Blood Disorders: No Adverse Reaction/Blood Tranf: No Physical Exam Vital Signs - First Documented 07/08/21 10:50 Temp 36.6 Pulse 97 Resp 18 B/P (MAP) 141/70 (93) Pulse Ox 98 O2 Delivery Room Air Capillary Refill : Height: '" Weight: lbs. oz. kg; 18.00 BMI Method: General Appearance: WD/WN, no apparent distress, thin Eyes: Bilateral Eye Normal Inspection, Bilateral Eye PERRL, Bilateral Eye EOMI HEENT: PERRL/EOMI, normal ENT inspection, TMs normal, pharynx normal Neck: non-tender, full range of motion, supple, normal inspection Respiratory: chest non-tender, lungs clear, normal breath sounds, no respiratory distress, no accessory muscle use Cardiovascular: regular rate, rhythm, no edema, no murmur Gastrointestinal: normal bowel sounds, non tender, soft, other (mass felt in lower abdomen) Extremities: normal range of motion, non-tender, normal inspection, no pedal edema, no calf tenderness Neurologic/Psychiatric: bill distributor II-XII nml as tested, no motor/sensory deficits, alert, normal mood/affect, oriented x 3 Skin: normal color, warm/dry Lymphatic: other (Nontender lymph node in his right axilla, bilateral sides of his neck, right supraclavicular, left lower abdomen, upper back) Progress/Results/Core Measures Suspected Sepsis SIRS Temperature: Pulse: Respiratory Rate: Laboratory Tests 07/08/21 10:30: White Blood Count 14.9H Blood Pressure / Mean: Laboratory Tests 07/08/21 10:30: Creatinine 2.10H, INR Comment 1.0, Platelet Count 450H, Total Bilirubin 0.3 Results/Orders Lab Results Laboratory Tests Test 07/08/21 10:30 07/08/21 10:35 Range/Units White Blood Count 14.9 H 4.3-11.0 10^3/uL Red Blood Count 4.71 4.30-5.52 10^6/uL Hemoglobin 10.5 L 13.3-17.7 g/dL Hematocrit 36 L 40-54 % Mean Corpuscular Volume 76 L 80-99 fL Mean Corpuscular Hemoglobin 22 L 25-34 pg Mean Corpuscular Hemoglobin Concent 29 L 32-36 g/dL Red Cell Distribution Width 16.1 H 10.0-14.5 % Platelet Count 450 H 130-400 10^3/uL Mean Platelet Volume 9.4 9.0-12.2 fL Immature Granulocyte % (Auto) 1 % Neutrophils (%) (Auto) 78 H 42-75 % Lymphocytes (%) (Auto) 13 12-44 % Monocytes (%) (Auto) 7 0-12 % Eosinophils (%) (Auto) 1 0-10 % Basophils (%) (Auto) 1 0-10 % Neutrophils # (Auto) 11.7 H 1.8-7.8 X 10^3 Lymphocytes # (Auto) 1.9 1.0-4.0 X 10^3 Monocytes # (Auto) 1.0 0.0-1.0 X 10^3 Eosinophils # (Auto) 0.1 0.0-0.3 10^3/uL Basophils # (Auto) 0.1 0.0-0.1 10^3/uL Immature Granulocyte # (Auto) 0.1 0.0-0.1 10^3/uL Neutrophils % (Manual) 81 % Lymphocytes % (Manual) 9 % Monocytes % (Manual) 7 % Basophils % (Manual) 1 % Reactive Lymphocytes 2 % Platelet Estimate INCREASED Hypochromasia SLIGHT Microcytosis MODERATE Elliptocytes SLIGHT Blood Morphology Comment ABNORMAL Prothrombin Time 14.0 12.2-14.7 SEC INR Comment 1.0 0.8-1.4 Activated Partial Thromboplast Time 32 24-35 SEC Sodium Level 137 135-145 MMOL/L Potassium Level 4.1 3.6-5.0 MMOL/L Chloride Level 103 98-107 MMOL/L Carbon Dioxide Level 22 21-32 MMOL/L Anion Gap 12 5-14 MMOL/L Blood Urea Nitrogen 22 H 7-18 MG/DL Creatinine 2.10 H 0.60-1.30 MG/DL Estimat Glomerular Filtration Rate 30 BUN/Creatinine Ratio 10 Glucose Level 147 H 70-105 MG/DL Calcium Level 8.8 8.5-10.1 MG/DL Corrected Calcium 9.3 8.5-10.1 MG/DL Magnesium Level 1.9 1.6-2.4 MG/DL Total Bilirubin 0.3 0.1-1.0 MG/DL Aspartate Amino Transf (AST/SGOT) 8 5-34 U/L Alanine Aminotransferase (ALT/SGPT) 6 0-55 U/L Alkaline Phosphatase 125 40-136 U/L Troponin I < 0.30 <0.30 NG/ML Pro-B-Type Natriuretic Peptide 464.0 H <75.0 PG/ML Total Protein 6.7 6.4-8.2 GM/DL Albumin 3.4 3.2-4.5 GM/DL Influenza Type A Antigen NEGATIVE NEGATIVE Influenza Type B Antigen NEGATIVE NEGATIVE My Orders Orders - CHRISTIANO MAYES MD Cbc With Automated Diff (07/08/21 10:34) Comprehensive Metabolic Panel (07/08/21 10:34) Magnesium (07/08/21 10:34) Protime With Inr (07/08/21 10:34) Partial Thromboplastin Time (07/08/21 10:34) Ua Culture If Indicated (07/08/21 10:34) Probnp Fs (07/08/21 10:34) Troponin I Fs (07/08/21 10:34) Influenza A & B Antigens (07/08/21 10:34) Covid 19 Inhouse Test (07/08/21 10:34) Lactated Ringers (Lr 1000 Ml Iv Solution (07/08/21 10:45) Manual Differential (07/08/21 10:30) Ct Head Wo (07/08/21 11:43) Ct Neck (Soft Tissue) Wo (07/08/21 11:43) Ct Chest/Abdomen/Pelvis Wo (07/08/21 11:43) Vital Signs/I&O 07/08/21 10:50 Temp 36.6 Pulse 97 Resp 18 B/P (MAP) 141/70 (93) Pulse Ox 98 O2 Delivery Room Air Capillary Refill : Progress Note : Progress Note 81-year-old male with above history coming in due to 3 days of cough and congestion who coincidently now since being here we have noted numerous very enlarged lymph nodes and 45 pounds of weight loss. Remote history of trauma abo ut a week ago as well. ABCs were intact and vitals were stable on presentation with a GCS of 15. No outward signs of trauma. Given the significant weight loss and decreased p.o., an IV was placed and he was given a bolus of IV fluids. Labs otherwise unremarkable other than a slightly elevated white blood cell count, and elevated creatinine which is actually lower than his baseline. GFR was [address] was ordered without contrast of his head, soft tissue neck, chest, abdomen, and pelvis. He has multiple metastatic lesions to his brain, pathologic lymph nodes in his neck, and multiple masses in his peritoneum and abdomen. Unsure of the primary cause without biopsy. Vitals have remained stable however, and no signs of infection on imaging such as pneumonia. I believe the patient is stable for outpatient follow-up and expedited oncologic work-up. I did call and discussed the case with the oncologist on-call, Dr. Duarte. We discussed given there is cerebral edema on the CT to give high-dose steroids. He recommended IV 10 mg Decadron now and 4 mg p.o. Decadron 4 times daily with food. He recommended expedited biopsy especially after starting the steroids to get a primary diagnosis. I discussed all this with the patient, and he says he is not so sure he wants to do any treatment which I want to respect. I recommended he follow-up with his primary care doctor so they can have a more thorough discussion regarding his options and if he wants to be referred to a specialist. Diagnostic Imaging Diagonstic Imaging: CT (head, soft tissue neck, chest/abd/pelv without contrast) Comments [facility] [place], [place] NAME: RAIMUNDO AYALA [facility] REC#: [id number] PT STATUS: REG ER : 1940 PHYSICIAN: CHRISTIANO MAYES MD ADMIT DATE: 07/08/21/ER FS Draft Date of Exam:07/08/21 CT HEAD WO PROCEDURE: CT head without contrast. TECHNIQUE: Multiple contiguous axial images were obtained through the brain without the use of intravenous contrast. Auto Exposure Controls were utilized during the CT exam to meet ALARA standards for radiation dose reduction. INDICATION: Fall with head injury. There is no previous study available at this time for comparison. FINDINGS: Ventricles and sulci are diffusely prominent. There are multiple hyperdense parenchymal lesions throughout both cerebral hemispheres which demonstrate extensive surrounding vasogenic edema. These measure up to approximately 1.6 cm in diameter in the high right parietal region and 1.7 cm in diameter in the left parietal lobe. In addition, there is mass located in the superior aspect of the right cerebellum. No midline shift is identified. Calvarium is intact and visualized paranasal sinuses are clear. IMPRESSION: Numerous bilateral cerebral and cerebellar lesions highly suspicious for extensive metastatic disease. These demonstrate surrounding edema without magui herniation. Dictated on workstation # [id number] Dict: 07/08/21 1223 Trans: 07/08/21 1231 [id number] Interpreted by: AARON ROB MD Electronically signed by: [facility] [place] [place] NAME: RAIMUNDO AYALA [facility] REC#: [id number] PT STATUS: REG ER : 1940 PHYSICIAN: CHRISTIANO MAYES MD ADMIT DATE: 07/08/21/ER FS Signed Date of Exam:07/08/21 CT NECK (SOFT TISSUE) WO PROCEDURE: CT neck soft tissue without contrast. TECHNIQUE: Multiple contiguous axial images were obtained through the neck without the use of intravenous contrast. Auto Exposure Controls were utilized during the CT exam to meet ALARA standards for radiation dose reduction. INDICATION: Fall. Neck pain. Palpable mass in the left neck. FINDINGS: Pathologically enlarged lymphadenopathy is seen bilaterally. The largest lymph nodes are visualized in the base of the neck. A lymph node in the posterior soft tissues of the left neck/upper back measures 5.3 x 3.6 cm. There is a partially visualized lymph node in the right supraclavicular region measuring 3.6 cm. A lymph node in the left supraclavicular region measures 2.8 x 2.1 cm. A pathologically enlarged lymph node in the right neck in the level V-A station measures 2.1 x 1.5 cm. A level III lymph node on the left measures 1.8 x 1.4 cm. A lymph node is seen in the posterior neck on the left near the skull base measuring 1.0 cm. The posterior nasopharynx and oropharynx demonstrate appropriate symmetry. There is no displacement of the parapharyngeal fat planes. There is no abnormal process evident within the prevertebral or retropharyngeal space. There is no evidence of abnormal thickening of the epiglottis or aryepiglottic folds. The vocal folds appear symmetric. The submandibular and thyroid glands are unremarkable. Nodule is seen in the left parotid gland measuring 0.8 cm. The right parotid gland is unremarkable. The vascular structures the neck demonstrate no evidence of high-grade stenosis on this nondedicated exam. There is edema in the right parieto-occipital region. Visualized orbital contents are unremarkable. The visualized paranasal sinuses are clear. The mastoids and middle ears are clear. No acute osseous abnormality in the cervical spine. IMPRESSION: 1. Pathologically enlarged lymphadenopathy in the neck and base of the neck/upper back bilaterally. Findings are highly concerning for metastatic disease. 2. No evidence of mass or fluid collection in the aerodigestive tract. No airway compromise. 3. Nonspecific edema in the right parieto-occipital region. Given the lymphadenopathy in the neck, this is concerning for intracranial metastatic disease. Please see the separately dictated report of the CT head performed the same date for additional findings. 4. Nodule in the left parotid gland measuring 0.8 cm, which may represent primary parotid malignancy. Consider MRI of the neck to further characterize. Dictated by: Dictated on workstation # [id number] Dict: 07/08/21 1228 Trans: 07/08/21 1244 [id number] Interpreted by: FRANNY MARTINEZ DO Electronically signed by: FRANNY MARTINEZ DO 07/08/21 1244 [facility] [place] [place] NAME: RAIMUNDO AYALA [facility] REC#: [id number] PT STATUS: REG ER : 1940 PHYSICIAN: CHRISTIANO MAYES MD ADMIT DATE: 07/08/21/ER FS Draft Date of Exam:07/08/21 CT CHEST/ABDOMEN/PELVIS WO PROCEDURE: CT chest, abdomen, and pelvis without contrast. TECHNIQUE: Multiple contiguous axial images were obtained through the chest, abdomen, and pelvis without the use of intravenous contrast. Auto Exposure Controls were utilized during the CT exam to meet ALARA standards for radiation dose reduction. INDICATION: Fall with multiple masses and enlarged lymph nodes. FINDINGS: CT CHEST: There is an approximately 5.0 x 3.9 cm mass along the right heart border in the lower chest. In addition, there are several scattered subcentimeter nodules in both lungs with a predominantly subpleural distribution. There is mild dependent atelectasis as well. Mildly prominent mediastinal lymph nodes are present with precarinal lymph node measuring approximately 1.3 cm in size. There is coronary artery calcification. There are multiple enlarged axillary and supraclavicular masses. The largest is in the left axilla anterior to the scapula measuring approximately 7.8 x 7.4 cm in size. Numerous additional enlarged bilateral axillary lymph nodes are noted with a dominant 4.2 x 3.3 cm right supraclavicular mass. No obvious bone lesion is seen. IMPRESSION: Dominant mass in the lower medial right hemithorax which may reside within the lung itself or adjacent mediastinum. Tiny scattered nodules seen in both lungs which may represent metastatic disease. In addition, multiple masses are present in the axillary regions, shoulder regions and supraclavicular aspects of the upper thorax compatible with extensive metastatic disease. Consideration should include lymphoma as well as metastatic melanoma and biopsy of the left axillary mass could be performed for histologic analysis. CT ABDOMEN AND PELVIS: Unenhanced images of liver and spleen reveal extensive cholelithiasis without evidence of focal hepatic or splenic mass. Note is made of several epicardial nodules in the lower thorax as well as dominant mass in the medial right lower chest. No definite pancreatic or adrenal gland lesion is identified. There is bilateral renal atrophy. Kidneys are otherwise poorly evaluated on the noncontrast study. There are several mesenteric and probable peritoneal nodules throughout the abdomen and pelvis. Nodules in the right iliac fossa measure up to 1.7 cm in size. There are also subcutaneous nodules seen to the left of midline near the umbilicus. Within the pelvis, there is marked mural thickening of the rectum with perirectal edema, inflammation and lymph nodes. There is also mural thickening throughout the urinary bladder. IMPRESSION: 1. 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 There is also marked mural thickening of the rectum, highly suspicious for colorectal carcinoma and clinical correlation is recommended. 2. Mural thickening at the urinary bladder could be inflammatory or neoplastic as well. Dictated on workstation # [id number] Dict: 07/08/21 1230 Trans: 07/08/21 1257 [id number] Interpreted by: AARON ROB MD Electronically signed by: Departure Impression Primary Impression: Metastatic cancer Qualified Codes: C79.9 - Secondary malignant neoplasm of unspecified site Additional Impression: Brain metastases Disposition: HOME, SELF-CARE Condition: Stable Departure-Patient Inst. Decision time for Depature: 13:51 Referrals: GLORY SEPULVEDA MD (PCP/Family) Primary Care Physician Patient Instructions: Brain Metastases Add. Discharge Instructions: Please follow-up with Dr. Sepulveda to discuss your options which include doing nothing and trying to control your symptoms to make you as comfortable as possible. Copy Copies To 1: GLORY SEPULVEDA MD, ZACHARY K MD Jul 08, 2021 10:42
[2021-07-08] MEDS ORDERED: LACTATED RINGERS 1,000 ML IV SCH (10:45)
[2021-07-08 11:06] LABS: BASOPHILS % (AUTO) 1 % (0-10); EOSINOPHILS % (AUTO) 1 % (0-10); HEMATOCRIT 36 % (40-54); HEMOGLOBIN 10.5 g/dL (13.3-17.7); LYMPHOCYTES % (AUTO) 13 % (12-44); MEAN CORPUSCULAR HEMOGLOBIN 22 pg (25-34); MEAN CORPUSCULAR HGB CONC 29 g/dL (32-36); MEAN CORPUSCULAR VOLUME 76 fL (80-99); MEAN PLATELET VOLUME 9.4 fL (9.0-12.2); MONOCYTES % (AUTO) 7 % (0-12); NEUTROPHILS % (AUTO) 78 % (42-75); PLATELET COUNT 450 10^3/uL (130-400); WHITE BLOOD COUNT 14.9 10^3/uL (4.3-11.0)
[2021-07-08 11:07] LABS: BASOPHILS # (AUTO) 0.1 10^3/uL (0.0-0.1); EOSINOPHILS # (AUTO) 0.1 10^3/uL (0.0-0.3); LYMPHOCYTES # (AUTO) 1.9 X 10^3 (1.0-4.0); NEUTROPHILS # (AUTO) 11.7 X 10^3 (1.8-7.8)
[2021-07-08 11:32] LABS: CARBON DIOXIDE 22 MMOL/L (21-32); CHLORIDE 103 MMOL/L (98-107); POTASSIUM 4.1 MMOL/L (3.6-5.0); SODIUM 137 MMOL/L (135-145)
[2021-07-08 11:33] LABS: ALANINE AMINOTRANSFERASE 6 U/L (0-55); ALKALINE PHOSPHATASE 125 U/L (40-136); BILIRUBIN,TOTAL 0.3 MG/DL (0.1-1.0); BUN/CREATININE RATIO 10; CALCIUM 8.8 MG/DL (8.5-10.1); GFR ESTIMATED 30; GLUCOSE 147 MG/DL (70-105); MAGNESIUM 1.9 MG/DL (1.6-2.4)
[2021-07-08 11:38] LABS: ALBUMIN 3.4 GM/DL (3.2-4.5); TOTAL PROTEIN 6.7 GM/DL (6.4-8.2)
[2021-07-08 11:47] LABS: BASOPHILS % (MANUAL) 1 %; LYMPHOCYTES % (MANUAL) 9 %; MONOCYTES % (MANUAL) 7 %; NEUTROPHILS % (MANUAL) 81 %
[2021-07-08 11:48] LABS: HYPOCHROMASIA SLIGHT; MICROCYTOSIS MODERATE; PLATELET ESTIMATE INCREASED; RBC MORPH ABNORMAL; REACTIVE LYMPHOCYTES 2 %
[2021-07-08 11:49] LABS: ELLIPT/OVALOCYTES SLIGHT
--- NOTE | 2021-07-08 12:31 | Diagnostic Imaging Report ---
PROCEDURE: CT head without contrast. TECHNIQUE: Multiple contiguous axial images were obtained through the brain without the use of intravenous contrast. Auto Exposure Controls were utilized during the CT exam to meet ALARA standards for radiation dose reduction. INDICATION: Fall with head injury. There is no previous study available at this time for comparison. FINDINGS: Ventricles and sulci are diffusely prominent. There are multiple hyperdense parenchymal lesions throughout both cerebral hemispheres which demonstrate extensive surrounding vasogenic edema. These measure up to approximately 1.6 cm in diameter in the high right parietal region and 1.7 cm in diameter in the left parietal lobe. In addition, there is mass located in the superior aspect of the right cerebellum. No midline shift is identified. Calvarium is intact and visualized paranasal sinuses are clear. IMPRESSION: Numerous bilateral cerebral and cerebellar lesions highly suspicious for extensive metastatic disease. These demonstrate surrounding edema without magui herniation. Dictated by: Dictated on workstation # [id number]
--- NOTE | 2021-07-08 12:42 | Diagnostic Imaging Report ---
PROCEDURE: CT neck soft tissue without contrast. TECHNIQUE: Multiple contiguous axial images were obtained through the neck without the use of intravenous contrast. Auto Exposure Controls were utilized during the CT exam to meet ALARA standards for radiation dose reduction. INDICATION: Fall. Neck pain. Palpable mass in the left neck. FINDINGS: Pathologically enlarged lymphadenopathy is seen bilaterally. The largest lymph nodes are visualized in the base of the neck. A lymph node in the posterior soft tissues of the left neck/upper back measures 5.3 x 3.6 cm. There is a partially visualized lymph node in the right supraclavicular region measuring 3.6 cm. A lymph node in the left supraclavicular region measures 2.8 x 2.1 cm. A pathologically enlarged lymph node in the right neck in the level V-A station measures 2.1 x 1.5 cm. A level III lymph node on the left measures 1.8 x 1.4 cm. A lymph node is seen in the posterior neck on the left near the skull base measuring 1.0 cm. The posterior nasopharynx and oropharynx demonstrate appropriate symmetry. There is no displacement of the parapharyngeal fat planes. There is no abnormal process evident within the prevertebral or retropharyngeal space. There is no evidence of abnormal thickening of the epiglottis or aryepiglottic folds. The vocal folds appear symmetric. The submandibular and thyroid glands are unremarkable. Nodule is seen in the left parotid gland measuring 0.8 cm. The right parotid gland is unremarkable. The vascular structures the neck demonstrate no evidence of high-grade stenosis on this nondedicated exam. There is edema in the right parieto-occipital region. Visualized orbital contents are unremarkable. The visualized paranasal sinuses are clear. The mastoids and middle ears are clear. No acute osseous abnormality in the cervical spine. IMPRESSION: 1. Pathologically enlarged lymphadenopathy in the neck and base of the neck/upper back bilaterally. Findings are highly concerning for metastatic disease. 2. No evidence of mass or fluid collection in the aerodigestive tract. No airway compromise. 3. Nonspecific edema in the right parieto-occipital region. Given the lymphadenopathy in the neck, this is concerning for intracranial metastatic disease. Please see the separately dictated report of the CT head performed the same date for additional findings. 4. Nodule in the left parotid gland measuring 0.8 cm, which may represent primary parotid malignancy. Consider MRI of the neck to further characterize. Dictated by: Dictated on workstation # [id number]
--- NOTE | 2021-07-08 12:57 | Diagnostic Imaging Report ---
PROCEDURE: CT chest, abdomen, and pelvis without contrast. TECHNIQUE: Multiple contiguous axial images were obtained through the chest, abdomen, and pelvis without the use of intravenous contrast. Auto Exposure Controls were utilized during the CT exam to meet ALARA standards for radiation dose reduction. INDICATION: Fall with multiple masses and enlarged lymph nodes. FINDINGS: CT CHEST: There is an approximately 5.0 x 3.9 cm mass along the right heart border in the lower chest. In addition, there are several scattered subcentimeter nodules in both lungs with a predominantly subpleural distribution. There is mild dependent atelectasis as well. Mildly prominent mediastinal lymph nodes are present with precarinal lymph node measuring approximately 1.3 cm in size. There is coronary artery calcification. There are multiple enlarged axillary and supraclavicular masses. The largest is in the left axilla anterior to the scapula measuring approximately 7.8 x 7.4 cm in size. Numerous additional enlarged bilateral axillary lymph nodes are noted with a dominant 4.2 x 3.3 cm right supraclavicular mass. No obvious bone lesion is seen. IMPRESSION: Dominant mass in the lower medial right hemithorax which may reside within the lung itself or adjacent mediastinum. Tiny scattered nodules seen in both lungs which may represent metastatic disease. In addition, multiple masses are present in the axillary regions, shoulder regions and supraclavicular aspects of the upper thorax compatible with extensive metastatic disease. Consideration should include lymphoma as well as metastatic melanoma and biopsy of the left axillary mass could be performed for histologic analysis. CT ABDOMEN AND PELVIS: Unenhanced images of liver and spleen reveal extensive cholelithiasis without evidence of focal hepatic or splenic mass. Note is made of several epicardial nodules in the lower thorax as well as dominant mass in the medial right lower chest. No definite pancreatic or adrenal gland lesion is identified. There is bilateral renal atrophy. Kidneys are otherwise poorly evaluated on the noncontrast study. There are several mesenteric and probable peritoneal nodules throughout the abdomen and pelvis. Nodules in the right iliac fossa measure up to 1.7 cm in size. There are also subcutaneous nodules seen to the left of midline near the umbilicus. Within the pelvis, there is marked mural thickening of the rectum with perirectal edema, inflammation and lymph nodes. There is also mural thickening throughout the urinary bladder. IMPRESSION: 1. 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 There is also marked mural thickening of the rectum, highly suspicious for colorectal carcinoma and clinical correlation is recommended. 2. Mural thickening at the urinary bladder could be inflammatory or neoplastic as well. Dictated by: Dictated on workstation # [id number]
[2021-07-08 14:03] VITALS: BP 130/68
== END 2021-07-08 14:04 | disposition home or self-care (01) ==
LOC: EDUNIT# 10:15 → ER FS 10:16
DX: C79.31 Secondary malignant neoplasm of brain (principal); Z20.822 Contact with and (suspected) exposure to COVID-19
CPT/HCPCS: 36415; 70450; 70490; 71250; 74176; 80053; 83735; 83880; 84484; 85007; 85027; 85610; 85730; 87636; 87804